=== PATIENT | male | born 1960 | race Caucasian/White ===

== ENCOUNTER → 2021-12-10 15:14 | Outpatient (CLI) | payer OTHER, SELFPAY ==
[2021-12-10 16:58] LABS: Microscopic, Urine URINE MICROSCOPIC (MICROSCOPIC)
[2021-12-10 17:52] LABS: Appearance,Urine CLEAR (Clear); Bilirubin,Urine Negative (Negative); Blood, Urine Negative (Negative); Color,Urine YELLOW (Yellow); Glucose,Urine (UA) Negative (Negative); Ketones,Urine Negative (Negative); Leukocyte Esterase,Urine Negative (Negative); Nitrate,Urine Negative (Negative); Protein,Urine Negative (Negative); Specific Gravity, Urine 1.025 (1.005-1.030); Urobilinogen,Urine 0.2 EU/dl (0.2)
[2021-12-10 18:13] LABS: Squamous Epithelial Cell,Urine Occasional #/hpf (0-5); WBC,Urine Occasional #/hpf (0-3)
[2021-12-12 21:12] LABS: Neisseria gonorrhoeae, NAA Negative (Negative)
== END ==
PROVIDERS: PCP Emergency Medicine; Visit Provider Emergency Medicine
DX: R39.89 Other symptoms and signs involving the genitourinary system (principal); R82.90 Unspecified abnormal findings in urine; Z20.2 Contact with and (suspected) exposure to infections with a predominantly sexual mode of transmission
CPT/HCPCS: 81001; 87086; 87491; 87591

== ENCOUNTER 2021-12-12 14:08 | Emergency (ER) | payer OTHER, SELFPAY ==
[2021-12-12 14:09] VITALS: BP 167/89; PULSE 75; RESP 18; TEMP 36.7; O2SAT 100; BMI 21.8
[2021-12-12 14:40] VITALS: BP 167/89; PULSE 75; RESP 18; TEMP 36.7; O2SAT 100; BMI 21.9
--- NOTE | 2021-12-12 14:46 | XR_ITS ---
FINAL REPORT CLINICAL HISTORY: PAIN in neck and radiating down right arm FINDINGS: CERVICAL SPINE Three views demonstrate no acute fracture. There is fusion from C5-C7. There are moderate degenerative changes with a disc osteophyte complex at C4-5. Bilateral vascular calcification is identified. There is no malalignment. IMPRESSION: Degenerative change as detailed above. Reviewed, Interpreted and Dictated by Anthony Espinosa III, MD Transcribed by Farnaz Spencer Authenticated and [facility]
--- NOTE | 2021-12-12 14:47 | EXP.UTC ---
Discharge Plan Disposition Patient Disposition: Home, Self-Care Condition: Good Prescriptions Prescriptions: New methocarbamol 500 mg tablet 500 mg PO BID PRN (Reason: muscle spasm) Qty: 20 0RF No Action buprenorphine-naloxone 8-2 mg tablet, sublingual 1 tab sublingual BID Referrals Follow up/Referrals: Marek Mcallister MD [Primary Care Provider] - See instructions Activity Restrictions/Add. Instructions Additional Instructions/Restrictions: *Ibuprofen leesa 6 hours with meal as needed for pain/inflammation *Remember you had a Toradol shot in the clinic today, which is similar to Motrin *Not additional anti-inflammatory like motrin, aleve, advil with the above amount of ibuprofen. You can still take Tylenol every 4 hours as needed if you need something else for pain *Ice 20 minutes every 2 hours for the first 48 hours after the initial injury followed by moist heat every 20 minutes 3-4 times a day to affected area *Muscle relaxer as prescribed as directed as needed for muscle spasms but remember, it WILL cause drowsiness You cannot take it and drive, operate machinery or care for small children. *Keep this area active, no movement leads to more stiffness, However take it easy and avoid heavy lifting pushing or pulling *Follow up with you family doctor if no improvement for further treatment Clinical Impressions Clinical Impression: Muscle spasm Instructions Patient Instructions: DI for Muscle Spasm, Methocarbamol Discharge ED Provider: Mandi Kim [facility] General Stated complaint: Back and neck pain Mode of Arrival: Ambulatory Source of Information: Patient Limitations: No Limitations Time Seen by Provider: 12/12/21 14:47 Description of Symptoms (Recalled from Triage Doc. by RN): pt comes in with c/o neck, back and right arm pain. HEENT Symptoms (Recalled from RN notes): No Resp Symptoms (Recalled from RN notes): No Skin Symptoms (Recalled from RN notes): No MS Symptoms (Recalled from RN notes): Yes Functional Status (Recalled from RN notes): n/a History of Present Illness Provider Complaint: Patient states that he has chronic neck pain and had surgery done in 2010 States that he has been working on generator and pulling and tugging alot and not sure if he may have pulled something or what States that he has been having spasm like pain in his neck and right shoulder area and sometimes with certain movements it will shoot pain down into his right upper arm States that over the las few days pain has got worse so he came in Denies numbness denies chest pain Related Data Home Medications Medication Instructions Recorded Confirmed buprenorphine 8 mg-naloxone 2 mg 1 tab sublingual BID 12/10/21 sublingual tablet Previous Rx's Medication Instructions Recorded methocarbamol 500 mg tablet 500 mg PO BID PRN muscle spasm #20 12/12/21 tabs Allergies Allergy/AdvReac Type Severity Reaction Status Date / Time No Known Drug Allergies Allergy Unknown Verified 12/12/21 14:46 [NKDA] Worker's Comp Is this a Worker's Comp case?: No PFSH PFSH Social History Smoking Status: Unknown if ever smoked alcohol intake: never current occupational status: unemployed Travel in the last 8 weeks: None ROS Obtained: Yes All systems reviewed & no additional complaints except as documented and Yes Systems reviewed as appropriate & no additional complaints except as documented Constitutional Constitutional: Reports system reviewed and no additional complaints, except as documented, Reports as per HPI and Denies headache(s) ENT Ears, Nose, Mouth, and Throat: Reports system reviewed and no additional complaints, except as documented, Reports as per HPI and Denies headache(s) Cardiovascular Cardiovascular: Reports system reviewed and no additional complaints, except as documented, Reports as per HPI, Denies chest pain, Denies dyspnea and Denies edema Re
[2021-12-12 15:58] VITALS: BP 167/89; PULSE 75; RESP 18; TEMP 36.7
== END 2021-12-12 16:01 | disposition home or self-care (01) ==
LOC: ER 14:26 → UTC 14:27
PROVIDERS: Emergency Provider Nurse Practitioner; PCP Family Medicine
DX: M62.838 Other muscle spasm (principal); M54.2 Cervicalgia; M54.9 Dorsalgia, unspecified; M25.511 Pain in right shoulder; M79.601 Pain in right arm; G89.29 Other chronic pain
CPT/HCPCS: 72040; 96372; 99213; G0463

== ENCOUNTER → 2021-12-24 14:32 | Outpatient (CLI) | payer OTHER, SELFPAY ==
[2021-12-24 13:25] LABS: Basophils # 0.1 K/mm3 (0-0.2); Basophils % 1.1 % (0.1-2.0); Eosinophils # 0.4 K/mm3 (0.0-0.4); Eosinophils % 4.8 % (0.1-12.0); Hematocrit 47.1 % (42.0-52.0); Hemoglobin 15.4 g/dL (14.1-18.0); Lymphocytes # 2.5 K/mm3 (0.7-4.5); Lymphocytes % 27.5 % (10-50); Mean Corpuscular HGB Conc 32.8 g/dL (31.8-35.4); Mean Corpuscular Hemoglobin 31.3 pg (27.0-31.2); Mean Corpuscular Volume 95.5 fl (80-94); Mean Platelet Volume 8.6 fl (7.4-10.4); Monocytes # 0.7 K/mm3 (0.1-1.0); Monocytes % 7.2 % (1.7-9.3); Neutrophils # 5.4 K/mm3 (1.8-7.8); Neutrophils % 59.4 % (37.0-80.0); Platelet Count 394 K/mm3 (142-424); Red Blood Count 4.93 M/mm3 (4.60-6.20); Red Cell Distribution Width 13.2 % (11.5-17.5); White Blood Count 9.1 K/mm3 (4.8-10.8)
[2021-12-24 13:28] LABS: Chloride 98 mmol/L (98-107)
[2021-12-24 13:29] LABS: Potassium 4.4 mmoL/L (3.5-5.1); Sodium 139 mmol/L (136-145)
[2021-12-24 13:31] LABS: Alanine Aminotransferase 27 U/L (12-78); Anion Gap 15.4 mEq/L (5-15); Aspartate Amino Transferase 34 U/L (17-59); Blood Urea Nitrogen 18 mg/dl (9-20); Carbon Dioxide 30 mmol/L (22.0-30.0); Estimated Glomerular Filt Rate 99 ml/min (>60); GFR (African American) 119 ML/MIN (>60)
[2021-12-24 13:32] LABS: Alkaline Phosphatase 72 U/L (38-126); Bilirubin,Total 0.5 mg/dl (0.2-1.3); Calcium 9.8 mg/dl (8.4-10.2); Cholesterol 317 mg/dl (140-200); Globulin 2.5 g/dL (1.3-3.2); Glucose 94 mg/dl (74-100); HDL Cholesterol 64 mg/dl (40-60); Total Protein,Serum 7.5 g/dl (6.3-8.2); Triglycerides 106 mg/dl (30-150); VLDL Cholesterol 21 mg/dL (0-40)
[2021-12-24 13:43] LABS: Direct LDL Cholesterol 214.44 mg/dL (100-129)
[2021-12-25 08:53] LABS: Hep A Ab, Total Negative (Negative); Hep B Core Ab, Total Negative (Negative); Hep B Surface Ab, Qual Non Reactive (.); Hepatitis B Surface Antigen Negative (Negative); Hepatitis C Antibody <0.1 s/co ratio (0.0-0.9)
[2021-12-25 11:31] LABS: HIV Screen 4th Generation wRfx Non Reactive (Non Reactive)
[2021-12-27 00:07] LABS: ALT (SGPT) P5P 26 IU/L (0-55); Alpha 2-Macroglobulins, Qn 213 mg/dL (110-276); Apolipoprotein A-1 170 mg/dL (101-178); Bilirubin, Total 0.3 mg/dL (0.0-1.2); Fibrosis Score 0.12 (0.00-0.21); GGT 20 IU/L (0-65); Haptoglobin 221 mg/dL (29-370); Necroinflammat Activity Grade A0-No activity (.); Necroinflammat Activity Score 0.09 (0.00-0.17)
== END ==
PROVIDERS: PCP Family Medicine; Visit Provider Family Medicine
DX: Z86.19 Personal history of other infectious and parasitic diseases (principal); Z11.4 Encounter for screening for human immunodeficiency virus [HIV]
CPT/HCPCS: 80053; 80061; 81596; 85025; 86703; 86704; 86706; 86708; 87340; 87380; 87522; G0103; G0432

== ENCOUNTER 2022-01-06 14:13 | Emergency (ER) | payer OTHER, SELFPAY ==
[2022-01-06 14:23] VITALS: BP 112/68; PULSE 74; RESP 16; TEMP 36.9; O2SAT 96; BMI 22.1
--- NOTE | 2022-01-06 14:39 | XR_ITS ---
PROCEDURE INFORMATION: Exam: XR Right Wrist Exam date and time: 01/06/2022 2:39 PM Age: 61 years old Clinical indication: Injury or trauma; Fall; Blunt trauma (contusions or hematomas); Patient HX: Patient fell on Friday, right wrist pain. TECHNIQUE: Imaging protocol: Radiologic exam of the Right wrist. Views: 3 or more views. COMPARISON: CR WRR3 WRIST-3 VIEWS-RT 08/14/2016 9:41 AM FINDINGS: Bones/joints: Severe narrowing 1st carpal metacarpal articulation. Soft tissues: Diffuse soft tissue swelling. IMPRESSION: 1. 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 2. No evidence of acute osseous injury.
--- NOTE | 2022-01-06 14:39 | XR_ITS ---
PROCEDURE INFORMATION: Exam: XR Right Forearm Exam date and time: 01/06/2022 2:41 PM Age: 61 years old Clinical indication: Injury or trauma; Fall; Blunt trauma (contusions or hematomas); Arm, lower; Patient HX: Fell on Friday, right wrist pain TECHNIQUE: Imaging protocol: Radiologic exam of the Right forearm. Views: 2 views. COMPARISON: CR XR WRIST RT MIN 3V 01/06/2022 2:39 PM FINDINGS: Bones/joints: Normal. Soft tissues: Soft tissue swelling. IMPRESSION: 1. No evidence of acute osseous injury. 2. Soft tissue swelling.
[2022-01-06 15:10] VITALS: BP 112/68; PULSE 74; RESP 16; TEMP 36.9; O2SAT 96; BMI 22.1
--- NOTE | 2022-01-06 15:43 | EXP.UTC ---
Discharge Plan Disposition Condition: Good Prescriptions Prescriptions: New prednisone [prednisone] 20 mg tablet 20 mg PO BID Qty: 10 0RF No Action methocarbamol 500 mg tablet 500 mg PO BID PRN (Reason: muscle spasm) Qty: 60 3RF prednisone 20 mg tablet See Rx Instructions .ROUTE .COMPLEX Qty: 21 0RF Rx Instructions: three daily for days, two daily for 5 days, one daily for 5 days; meloxicam 15 mg tablet 15 mg PO DAILY Qty: 90 3RF buprenorphine-naloxone 8-2 mg tablet, sublingual 1 tab sublingual BID rosuvastatin [Crestor] 40 mg tablet 40 mg PO DAILY Qty: 90 3RF Referrals Follow up/Referrals: Marek Mcallister MD [Primary Care Provider] - See instructions Activity Restrictions/Add. Instructions Additional Instructions/Restrictions: sprain- rest Ice with cold pack for 20 minutes remove may repeat for comfort every hour splint for support and swelling no less in the shower. Be sure not too tight but not to lose either Elevate with arm above your heart as much as possible to help reduce swelling and therefore pain Ibuprofen every 6 hours as needed for pain or inflammation. If needs something more you can take Tylenol every 4 hours as needed as long as her primary care has told he was okayed for you to take both. Follow-up immediately if new or worsening symptoms or no noticeable improvement over the next 3-5 days. call ortho Clinical Impressions Clinical Impression: Muscle strain of right wrist Discharge ED Provider: Luzma ([facility])[place] HPI General Stated complaint: AO10/28@[email or web address]@1130 pain in Rt arm Mode of Arrival: Ambulatory Source of Information: Patient Limitations: No Limitations Time Seen by Provider: 01/06/22 15:43 Description of Symptoms (Recalled from Triage Doc. by RN): pt c/o R wrist pain r/t fall on friday of last week. Pt reports he tripped and fell. HEENT Symptoms (Recalled from RN notes): No Resp Symptoms (Recalled from RN notes): No Skin Symptoms (Recalled from RN notes): No MS Symptoms (Recalled from RN notes): Yes Functional Status (Recalled from RN notes): WNL History of Present Illness Provider Complaint: 61 yr old male presents for rt arm pain. pt states he fell and since then his arm and wrist is hurting and cracking Related Data Home Medications Medication Instructions Recorded Confirmed buprenorphine 8 mg-naloxone 2 mg 1 tab sublingual BID 12/10/21 12/24/21 sublingual tablet Previous Rx's Medication Instructions Recorded meloxicam 15 mg tablet 15 mg PO DAILY #90 tabs 12/24/21 methocarbamol 500 mg tablet 500 mg PO BID PRN muscle spasm #60 12/24/21 tabs prednisone 20 mg tablet See Rx Instructions .Route 12/24/21 .COMPLEX #21 tabs rosuvastatin 40 mg tablet (Crestor) 40 mg PO DAILY #90 tabs 12/24/21 prednisone 20 mg tablet 20 mg PO BID #10 tabs 01/06/22 Allergies Allergy/AdvReac Type Severity Reaction Status Date / Time No Known Drug Allergies Allergy Unknown Verified 12/24/21 09:56 [NKDA] Worker's Comp Is this a Worker's Comp case?: No PFSH PFSH Social History , [employer]) Smoking Status: Current every day smoker alcohol intake: never substance use type: former substance user current occupational status: unemployed Travel in the last 8 weeks: None ROS Obtained: Yes All systems reviewed & no additional complaints except as documented Constitutional Constitutional: Reports system reviewed and no additional complaints, except as documented Eyes Eyes: Reports system reviewed and no additional complaints, except as documented ENT Ears, Nose, Mouth, and Throat: Reports system reviewed and no additional complaints, except as documented Cardiovascular Cardiovascular: Reports system reviewed and no additional complaints, except as documented Respiratory Respiratory: Reports system reviewed and no additional complaints, except as documented Gastrointestinal Ga
[2022-01-06 15:57] VITALS: BP 112/68; PULSE 74; RESP 16; TEMP 36.9; O2SAT 96
== END 2022-01-06 16:00 | disposition home or self-care (01) ==
PROVIDERS: Emergency Provider Nurse Practitioner Family; PCP Family Medicine
DX: S66.911A Strain of unspecified muscle, fascia and tendon at wrist and hand level, right hand, initial encounter (principal); W18.30XA Fall on same level, unspecified, initial encounter
CPT/HCPCS: 73090; 73110; 99212; G0463

== ENCOUNTER → 2022-02-04 08:32 | Outpatient (CLI) | payer OTHER, SELFPAY ==
[2022-02-04 08:56] LABS: Blood Urea Nitrogen 26 mg/dl (9-20); Estimated Glomerular Filt Rate 76 ml/min (>60); GFR (African American) 92 ML/MIN (>60)
== END ==
PROVIDERS: PCP Family Medicine; Visit Provider Emergency Medicine
DX: M54.2 Cervicalgia (principal); M25.519 Pain in unspecified shoulder
CPT/HCPCS: 36415; 82565; 84520

== ENCOUNTER → 2022-02-14 14:42 | Outpatient (CLI) | payer OTHER, SELFPAY ==
--- NOTE | 2022-02-14 15:02 | MR_ITS ---
FINAL REPORT CLINICAL HISTORY: old neck injury. HX NECK SURGERY 2010. RIGHT SIDED NECK PAIN. RIGHT ARM PAIN, NUMBNESS, AND TINGLING. 14ML PROHANCE GIVEN. FINDINGS: Multiplanar MR imaging of the cervical spine was performed without and with contrast. On the sagittal T2-weighted images, disc degeneration is seen at multiple levels. There is fusion of C5-C7. The vertebral alignment is normal. There is no evidence of fracture. No bony mass is identified. The cervical spinal cord has an unremarkable appearance without evidence of mass, edema or syrinx. There is no evidence of significant canal stenosis. C2-3: There are bilateral uncovertebral osteophytes greater on the left. There is mild left neural foraminal narrowing. C3-4: There is an annular bulge with uncovertebral osteophytes. There is moderate right and mild left neural foraminal narrowing. C4-5: There is a disc osteophyte complex. There is severe right and moderate left neural foraminal narrowing. C5-6: There is fusion at this level. There is mild right neural foraminal narrowing. C6-7: There is fusion at this level. There is moderate right neural foraminal narrowing. C7-T1: There is a disc osteophyte complex. There is mild right neural foraminal narrowing. No abnormal contrast enhancement is seen on the postcontrast images. IMPRESSION: Fusion of C5-C7. Multilevel degenerative disc disease with areas of neural foraminal narrowing. No focal disc protrusion or significant central canal stenosis. Reviewed, Interpreted and Dictated by Anthony Espinosa III, MD Transcribed by Keenan Stewart Authenticated and [facility]
== END ==
PROVIDERS: PCP Family Medicine; Visit Provider Family Medicine
DX: M25.511 Pain in right shoulder (principal); M54.2 Cervicalgia
CPT/HCPCS: 72156; 76376; A9576

== ENCOUNTER → 2022-03-18 13:53 | Outpatient (POV) | payer OTHER, SELFPAY ==
--- NOTE | 2022-03-18 14:33 | EXP.PAIN.OV ---
HPI Data of Consult Patient: new to practice Consult date: 03/18/22 Requesting Physician: Martina Huffman APRN Consult Narrative Reason for consult: Neck pain, extremity pain, low back pain, mid back pain History of present illness: Mr. Woods is a 61 year old male who presents today as a new patient. He is a referral from Yasmany Mcallister's office. Today he rates his pain a 8 out of 10. Patient states the pain is all primarily in his neck and upper back with continued pain throughout his mid back and low back as well. Patient does state this is been going on for years and progressively worsened over time. Patient did have a cervical fusion back in 2010 with plates and screws. Patient states he was scheduled to have a revision of this fusion however due to COVID it was canceled and never rescheduled. Patient does describe this as a constant excruciating pain sensation that is worse with increased activity. Patient states it does affect his ability to perform activities of daily living such as cooking and cleaning. Patient states he does have a new baby and has difficulty leaving lifting her up due to the pain. Patient has tried qgen-wiw-iitrusr Tylenol and ibuprofen with minimal improvement. Patient is also been prescribed oral steroids and muscle relaxers that do help some. Patient has had injections in the past. Patient states he did have several with our office approximately 3 to 4 years ago. He stated that these did provide some improvement however varied on how much and how long they lasted. Patient does use heat and ice including a heating pad. Patient states he has been to a chiropractor in the past for his mid back pain and did get some improvement following his visits. Patient denies any physical therapy. Patient is on Suboxone therapy by Maureen Han. His Sedrick is [id number]. Its been reviewed and appropriate. CC: Martina Huffman APRN [facility] Disclaimer: The information contained in this section may have been updated after the patient was seen, as this information can be updated by other users. Social History Smoking Status: Current every day smoker alcohol intake: never substance use type: former substance user current occupational status: unemployed Travel in the last 8 weeks: None Review of Systems Review of Systems Review of systems:: pertinent systems reviewed and negative unless documented below Review of systems (narrative): Neck pain Meds Home Medications and Allergies Home Medications Medication Instructions Recorded Confirmed Type buprenorphine 8 mg-naloxone 2 mg 1 tab sublingual BID 12/10/21 01/24/22 History sublingual tablet meloxicam 15 mg tablet 15 mg PO DAILY #90 tabs 12/24/21 01/24/22 Rx methocarbamol 500 mg tablet 500 mg PO BID PRN muscle spasm #60 12/24/21 01/24/22 Rx tabs rosuvastatin 40 mg tablet (Crestor) 40 mg PO DAILY #90 tabs 12/24/21 01/24/22 Rx alprazolam 2 mg tablet (Xanax) 2 mg PO DAILY #1 tab 02/08/22 Rx New Prescriptions to Start Prescriptions: Allergies Allergy/AdvReac Type Severity Reaction Status Date / Time No Known Drug Allergies Allergy Unknown Verified 01/24/22 14:56 [NKDA] Objective Narrative: Physical Exam: General: Alert and oriented x3, no acute distress, pleasant and cooperative Lungs: Respirations even and unlabored, symmetrical chest expansion Eyes: PERRL Musculoskeletal: Flexion and extension of cervical [spine] somewhat guarded secondary to pain, [antalgic gait noted] Neurological: Speech clear, no gross sensory deficit Additional findings Additional findings: FINAL REPORT CLINICAL HISTORY: old neck injury. HX NECK SURGERY 2010. RIGHT SIDED NECK PAIN. RIGHT ARM PAIN, NUMBNESS, AND TINGLING. 14ML PROHANCE GIVEN. FINDINGS: Multiplanar MR imaging of the cervical spine was performed without and with contrast.? On the sagittal T2-weighted images, disc degenera
[2022-03-18 14:34] VITALS: BP 143/87; PULSE 80; RESP 18; O2SAT 98; BMI 22.8
== END ==
PROVIDERS: Visit Provider Nurse Practitioner Family
DX: M50.123 Cervical disc disorder at C6-C7 level with radiculopathy (principal); Z72.0 Tobacco use; Z79.899 Other long term (current) drug therapy
CPT/HCPCS: 99202; G0463

== ENCOUNTER 2022-03-26 12:46 | Day surgery (SDC) | payer OTHER, SELFPAY ==
[2022-03-26 13:03] VITALS: BP 151/82; PULSE 83; RESP 18; TEMP 37; O2SAT 96; BMI 23.6
[2022-03-26 13:08] VITALS: BP 198/90; PULSE 89; RESP 20; O2SAT 98
[2022-03-26 13:09] VITALS: BP 198/90; PULSE 89; RESP 20; O2SAT 98
[2022-03-26 13:10] VITALS: BP 151/82; PULSE 83; RESP 18; TEMP 37; O2SAT 96
--- NOTE | 2022-03-26 13:16 | P.PCN_ITS ---
Procedure Date: 03/26/22 Time: 13:15 Anesthesiologist:: Vladimir Carballo CRNA Complications:: None Pre-procedure Diagnosis:: Degenerative disc disease cervical spine multilevels. Cervical radiculopathy. Cervical postlaminectomy syndrome. Post-procedure Diagnosis:: Same. Indications for Procedure:: Patient is a very pleasant 61-year-old male that comes our clinic today for cervical epidural steroid injection. Patient is status post cervical ACDF two- level several years ago. Patient continues with cervical neck pain that he describes as constant, dull, sharp and stabbing at times. Also bilateral shoulder and arm radicular symptoms. He rates his pain 8/10. Procedure Details:: Procedure:Cervical epidural steroid injection Informed consent was obtained and the risks and benefits of the procedure were explained to the patient. The patient was taken to the procedure room and noninvasive monitors placed, including noninvasive blood pressure cuff and pulse oximeter. The neck was prepped using Chloraprep as a cleansing solution. The C6- C7 interspace was viewed using fluroscopy. The skin and subcutaneous tissues were anesthetized using lidocaine 1.5% and a 25-gauge needle. After this an 18- gauge Touhy epidural needle was placed into the C6-C7 interspace under fluroscopy guidance and advanced using loss of resistance to air until the epidural space was encountered. After confirmation of needle placement in the epidural space using contrast dye, a solution containing normal saline, 2 mL and Depo-Medrol 80 mg was incrementally injected into the cervical epidural space.~ The patient tolerated the procedure well with no complications. The patient was observed in the Pain Clinic and then discharged home neurologically intact. Plan and Disposition:: Patient was discharged without incident.
== END 2022-03-26 13:10 | disposition home or self-care (01) ==
PROVIDERS: PCP Family Medicine; Visit Provider Nurse Anesthetist, Certified Registered
DX: M50.123 Cervical disc disorder at C6-C7 level with radiculopathy (principal); M96.1 Postlaminectomy syndrome, not elsewhere classified; Z72.0 Tobacco use
CPT/HCPCS: 62321; J1040; Q9966

== ENCOUNTER → 2022-04-08 13:18 | Outpatient (POV) | payer OTHER, SELFPAY ==
--- NOTE | 2022-04-08 15:15 | EXP.PAIN.SOA ---
[facility] Pain Management SOAP Note Subjective:: Patient is a pleasant 61-year-old male who presents today for follow-up of cervical epidural steroid injection at C6-C7 on 03/26/2022. We are currently treating the patient for degenerative disc disease of cervical spine with cervical radiculopathy symptoms, neck pain, extremity pain, low back pain, mid back pain. Today he states he did get significant relief following this injection but only on the third day and only lasting a couple days. Patient states that he had debilitating pain for 2 days after this injection. Patient does rate his pain a 10 out of 10 today and states he is back to his baseline if not worse. Patient denies any other trauma or injury. Patient does state that this is all in his neck with radiating symptoms and feels like it is a constant pulling and catching sensations with limited range of motion. Patient does state that it is a constant pressure that worsens his symptoms. Patient has had a cervical fusion in the past and was scheduled for revision however this was canceled due to COVID and never rescheduled. Patient does state this is a constant pain that affects his ability to perform activities of daily living such as cooking and cleaning. He has tried oral steroids muscle relaxers daily meloxicam with minimal improvement. Patient states he has also had injections in the past and is not interested in any long-term implants such as a spinal cord stimulator or pain pump. Patient states he does continue to use heat and ice including a heating pad however only gets short-term relief. Patient is on Suboxone therapy from an outside provider. Patient does state that he does have a girlfriend who has a drug history and in the past has taken some of his medication. Patient states prior to coming to our office he was prescribed Percocet 10 mg 4 times a day and this along with the Suboxone therapy did help manage his pain symptoms. His Sedrick is [id number]. Its been reviewed and appropriate. Review of Systems: General: No recent weight changes, no fever, no sleep disturbances Respiratory: No cough, no shortness of air, no recurring pulmonary infections Cardiovascular/peripheral vascular: No chest pain, no palpitations, no edema, no shortness of breath Gastrointestinal: No new onset incontinence, normal bowel movements reported Genitourinary: No new onset incontinence Musculoskeletal: Neck pain, shoulder pain, arm pain Psychiatric: [Normal mood/affect] Neurological: [Denies weakness in extremities], [denies balance issues] Objective:: Physical Exam: General: Alert and oriented x3, no acute distress, pleasant and cooperative Lungs: Respirations even and unlabored, symmetrical chest expansion Eyes: PERRL Musculoskeletal: Flexion and extension of cervical [spine] somewhat guarded secondary to pain, [antalgic gait noted] extreme point tenderness of bilateral cervical paraspinous and bilateral trapezius Neurological: Speech clear, no gross sensory deficit ORT score updated with moderate risk Assessment:: Degenerative disc disease of cervical spine with cervical radiculopathy symptoms, neck pain, extremity pain, low back pain, mid back pain Plan:: Patient continues to experience significant pain throughout his spine with worsening symptoms in his upper back. Patient did have limited range of motion of his cervical spine and extreme point tenderness along his bilateral cervical paraspinous and bilateral trapezius during today's visit. I have discussed with the patient that he may benefit from diagnostic trigger point injections at these locations. Risk and benefits were discussed with the patient and he would like to proceed forward with this plan of care. I have also discussed with the patient that he may benefit from a spinal cord stimulator trial in the future however the patient is not interested in this option. We will schedule the patient for diagnostic trigger point injections of bilateral cervical
[2022-04-08 15:17] VITALS: BP 156/100; PULSE 88; RESP 18; O2SAT 97; BMI 23.6
== END ==
PROVIDERS: PCP Emergency Medicine; Visit Provider Nurse Practitioner Family
DX: M50.123 Cervical disc disorder at C6-C7 level with radiculopathy (principal); M54.50 Low back pain, unspecified
CPT/HCPCS: 99212; G0463

== ENCOUNTER 2022-04-16 10:39 | Day surgery (SDC) | payer OTHER, SELFPAY ==
[2022-04-16 10:54] VITALS: BP 160/89; PULSE 82; RESP 18; TEMP 36.7; O2SAT 98; BMI 23.6
[2022-04-16 11:02] VITALS: BP 149/86; PULSE 77; RESP 18; O2SAT 98
[2022-04-16 11:03] VITALS: BP 149/86; PULSE 77; RESP 18; O2SAT 98
[2022-04-16 11:11] VITALS: BP 151/76; PULSE 72; RESP 18; O2SAT 98
--- NOTE | 2022-04-16 11:44 | EXP.PAIN.PRO ---
Procedure Date: 04/16/22 Time: 11:20 Anesthesiologist:: Vladimir Carballo CRNA Complications:: None Pre-procedure Diagnosis:: Degenerative disc disease cervical spine multilevels. Cervical radiculopathy. Myofascial pain bilateral trapezius. Lumbar paraspinous muscle pain bilaterally. Degenerative disc disease lumbar spine multilevels. Lumbar radicular symptoms. Post-procedure Diagnosis:: Same. Indications for Procedure:: LumbarEstefani is a very pleasant 61-year-old male that comes our clinic today for trigger point ejections of the bilateral trapezius muscles as well as bilateral paraspinous muscles. Patient has pain in these areas he describes as constant, dull and aching. He rates the pain 7/10. Also, patient had cervical epidural steroid injection in March 2022. He reports 2 days of feeling worse however, on the third day he began feeling much better and had relief in his cervical symptoms including radiculopathy for 2 to 3 weeks. Patient requesting a second cervical epidural steroid injection. I think this would be a good idea given the fact he received some significant treatment with his first. Procedure Details:: Details of the procedure explained to the patient. The patient taken procedure room placed in the sitting position. The area over the bilateral trapezius muscles as well as bilateral lumbar paraspinous muscles was cleansed using chlorhexidine as a cleansing solution. Trigger point injections over the bilateral trapezius muscles in 3 different spots were given using a 25-gauge inch and half needle and 1% lidocaine with Depo-Medrol. Each location received 1 cc of injection. The same was done in the lumbar paraspinous muscles bilaterally. 3 different areas were injected bilaterally. This covered L1-L4 bilaterally. Patient tolerated procedure without difficulty. There are no complications. Plan and Disposition:: Patient was discharged without incident. We will schedule the patient in 2 weeks for repeat cervical epidural steroid injection C7-T1
== END 2022-04-16 11:11 | disposition home or self-care (01) ==
LOC: SC.PAINP 10:40
PROVIDERS: PCP Emergency Medicine; Visit Provider Nurse Anesthetist, Certified Registered
DX: M51.16 Intervertebral disc disorders with radiculopathy, lumbar region (principal); M50.10 Cervical disc disorder with radiculopathy, unspecified cervical region; M79.18 Myalgia, other site
CPT/HCPCS: 20552; J1040

== ENCOUNTER 2022-04-30 09:20 | Day surgery (SDC) | payer OTHER, SELFPAY ==
[2022-04-30 09:34] VITALS: BP 151/90; PULSE 81; RESP 18; TEMP 36.9; O2SAT 97; BMI 23.6
[2022-04-30 09:40] VITALS: BP 173/99; PULSE 88; RESP 18; O2SAT 98
[2022-04-30 09:41] VITALS: BP 173/99; PULSE 88; RESP 18; O2SAT 98
[2022-04-30 09:45] VITALS: BP 168/84; PULSE 74; RESP 18; O2SAT 97
--- NOTE | 2022-04-30 12:14 | P.PCN_ITS ---
Procedure Date: 04/30/22 Time: 09:45 Anesthesiologist:: Vladimir Carballo CRNA Complications:: None Pre-procedure Diagnosis:: Degenerative disc disease cervical spine multilevels. Cervical radiculopathy. Cervical postlaminectomy syndrome Post-procedure Diagnosis:: Same. Indications for Procedure:: This patient is a very pleasant 61-year-old male that comes our clinic today for a repeat cervical epidural steroid injection. Patient reports 50 to 70% improvement in terms of his overall cervical neck pain and radicular symptoms with his first cervical epidural steroid injection. Patient also complains of difficulty with left and right cervical rotation. I mentioned to the patient briefly about medial branch blocks/facet blocks in the cervical spine. We will reassess the patient at his follow-up visit. Procedure Details:: Procedure:Cervical epidural steroid injection Informed consent was obtained and the risks and benefits of the procedure were explained to the patient. The patient was taken to the procedure room and noninvasive monitors placed, including noninvasive blood pressure cuff and pulse oximeter. The neck was prepped using Chloraprep as a cleansing solution. The C7- T1 interspace was viewed using fluroscopy. The skin and subcutaneous tissues were anesthetized using lidocaine 1.5% and a 25-gauge needle. After this an 18- gauge Touhy epidural needle was placed into the C7-T1 interspace under fluroscopy guidance and advanced using loss of resistance to air until the epidural space was encountered. After confirmation of needle placement in the epidural space using contrast dye, a solution containing normal saline, 2 mL and Depo-Medrol 80 mg was incrementally injected into the cervical epidural space.~ The patient tolerated the procedure well with no complications. The patient was observed in the Pain Clinic and then discharged home neurologically intact. Plan and Disposition:: Patient was discharged without incident.
== END 2022-04-30 09:45 | disposition home or self-care (01) ==
LOC: SC.PAINP 09:20
PROVIDERS: PCP Emergency Medicine; Visit Provider Nurse Anesthetist, Certified Registered
DX: M50.13 Cervical disc disorder with radiculopathy, cervicothoracic region (principal); M96.1 Postlaminectomy syndrome, not elsewhere classified; Z72.0 Tobacco use
CPT/HCPCS: 62321; J1040

== ENCOUNTER → 2022-05-13 14:18 | Outpatient (POV) | payer OTHER, SELFPAY | PROVIDERS: Visit Provider Specialist/Technologist | DX: Z00.00 Encounter for general adult medical examination without abnormal findings (principal) ==

== ENCOUNTER → 2022-05-16 14:15 | Outpatient (POV) | payer OTHER, SELFPAY ==
--- NOTE | 2022-05-16 15:09 | EXP.PAIN.SOA ---
[facility] Pain Management SOAP Note Subjective:: Patient is a pleasant 61-year-old male who presents today for follow-up of cervical epidural at C7-T1 on 04/30/2022. We are currently treating the patient for degenerative disc disease of cervical spine with cervical radiculopathy symptoms. Today he states he has had approximately 30% improvement or more following this injection and states he feels like it is still providing a little relief. He does rate his pain a 6 out of 10 today. Patient denies any new trauma or injury. Patient denies any change location or type of pain he experiences. Patient states he has chronic pain in his neck. Patient states previously the surgeon who did his previous back surgery stated that he would never be able to work again with his condition. He states that he previously tried for disability however this was denied. Patient states that the pain does interfere with his ability to perform activities of daily living such as cooking and cleaning and even interferes with his sleeping. 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 Patient states he has tried marijuana in the past that did provide additional relief of his pain symptoms as well as his anxiety and he is asking questions today regarding the medical marijuana. Patient is on Suboxone therapy from an outside provider. His Sedrick is [id number]. Its been reviewed and appropriate. Review of Systems: General: No recent weight changes, no fever, no sleep disturbances Respiratory: No cough, no shortness of air, no recurring pulmonary infections Cardiovascular/peripheral vascular: No chest pain, no palpitations, no edema, no shortness of breath Gastrointestinal: No new onset incontinence, normal bowel movements reported Genitourinary: No new onset incontinence Musculoskeletal: Neck pain Psychiatric: [Normal mood/affect] Neurological: [Denies weakness in extremities], [denies balance issues] Objective:: Physical Exam: General: Alert and oriented x3, no acute distress, pleasant and cooperative Lungs: Respirations even and unlabored, symmetrical chest expansion Eyes: PERRL Musculoskeletal: Flexion and extension of cervical [spine] somewhat guarded secondary to pain, [antalgic gait noted] Neurological: Speech clear, no gross sensory deficit Assessment:: Degenerative disc disease of cervical spine with cervical radiculopathy symptoms, chronic pain Plan:: Patient continues to have significant pain in his neck with radiating symptoms into his upper extremities. I have discussed with the patient that he may benefit from a spinal cord stimulator trial in the future. Risk and benefits and educational handouts were given during today's visit. Patient states he would like to review this and let us know in the future if he would like to proceed forward. I have counseled the patient that at this time we are not doing anything with the medical marijuana and we will let him know in the future if this changes. Patient will return to clinic in 1 month for reevaluation of symptoms and plan of care. Patient has been instructed to contact the clinic with any concerns before the next appointment. Dr. Moore has reviewed this note and agrees with this plan of care. This note was dictated using voice recognition software and make contain errors or omissions. [facility] Disclaimer: The information contained in this section may have been updated after the patient was seen, as this information can be updated by other users. Medical History (Updated 05/16/22 @ 10:46 by Kimi Wolfe APRN) Anxiety HLD (hyperlipidemia) Mood disorder Surgical History H/O neck surgery Family History Other No significant family history Social History (Updated 05/09/22 @ 13
[2022-05-16 16:02] VITALS: BP 129/85; PULSE 75; RESP 18; O2SAT 97; BMI 23.6
== END ==
PROVIDERS: PCP Family Medicine; Visit Provider Nurse Practitioner Family
DX: M50.33 Other cervical disc degeneration, cervicothoracic region (principal); G89.29 Other chronic pain
CPT/HCPCS: 99212; G0463

== ENCOUNTER → 2022-06-17 12:35 | Outpatient (POV) | payer OTHER, SELFPAY ==
--- NOTE | 2022-06-17 13:01 | EXP.PAIN.SOA ---
[facility] Pain Management SOAP Note Subjective:: Patient is a pleasant 61-year-old male who presents today for follow-up.? We are currently treating the patient for degenerative disc disease of cervical spine with cervical radiculopathy symptoms.? Today rates his pain a 7 out of 10 today.? Patient denies any new trauma or injury.? Patient denies any change location or type of pain he experiences.? He continues to have significant and chronic pain at his neck with radiating symptoms. Patient has tried iqsx-wev-ewdnvlq medications with minimal improvement along with heat and ice. Patient has been to see a neurosurgeon who stated he was not a surgical candidate for him due to the condition of his back. He does state his pain is a chronic aching, throbbing sensation that is worse with increased activity. It interferes with his ability to perform activities of daily living such as cooking and cleaning and even interferes with his sleeping.? Patient is on Suboxone therapy from an outside provider.? His Sedrick is [id number].? Its been reviewed and appropriate. Review of Systems: General: No recent weight changes, no fever, no sleep disturbances Respiratory: No cough, no shortness of air, no recurring pulmonary infections Cardiovascular/peripheral vascular: No chest pain, no palpitations, no edema, no shortness of breath Gastrointestinal: No new onset incontinence, normal bowel movements reported Genitourinary: No new onset incontinence Musculoskeletal: Neck pain Psychiatric: [Normal mood/affect] Neurological: [Denies weakness in extremities], [denies balance issues] Objective:: Physical Exam: General: Alert and oriented x3, no acute distress, pleasant and cooperative Lungs: Respirations even and unlabored, symmetrical chest expansion Eyes: PERRL Musculoskeletal: Flexion and extension of cervical [spine] somewhat guarded secondary to pain, [antalgic gait noted] Neurological: Speech clear, no gross sensory deficit FINDINGS: Multiplanar MR imaging of the cervical spine was performed without and with contrast.? On the sagittal T2-weighted images, disc degeneration is seen at multiple levels.? There is fusion of C5-C7. The vertebral alignment is normal. There is no evidence of fracture. No bony mass is identified.? The cervical spinal cord has an unremarkable appearance without evidence of mass, edema or syrinx. There is no evidence of significant canal stenosis.? C2-3:? There are bilateral uncovertebral osteophytes greater on the left.? There is mild left neural foraminal narrowing.? C3-4:? There is an annular bulge with uncovertebral osteophytes.? There is moderate right and mild left neural foraminal narrowing.? C4-5:? There is a disc osteophyte complex. There is severe right and moderate left neural foraminal narrowing.? C5-6:? There is fusion at this level.? There is mild right neural foraminal narrowing.? C6-7:? There is fusion at this level.? There is moderate right neural foraminal narrowing. C7-T1:? There is a disc osteophyte complex.? There is mild right neural foraminal narrowing.? No abnormal contrast enhancement is seen on the postcontrast images. IMPRESSION: Fusion of C5-C7.? ? Multilevel degenerative disc disease with areas of neural foraminal narrowing.? ? No focal disc protrusion or significant central canal stenosis. Reviewed, Interpreted and Dictated by Anthony Espinosa III, MD Transcribed by Keenan Stewart Authenticated and ERN Assessment:: Degenerative disc disease of cervical spine with cervical radiculopathy symptoms Plan:: Patient is experiencing significant pain in his neck with limited range of motion of his lumbar spine and radiating symptoms. I have discussed with the patient that he may benefit from a cervical epidural steroid injection. Risk and benefits were discussed with the patient and he would like to proceed forward with this plan of care. Patient pr
[2022-06-17 14:00] VITALS: BP 153/85; PULSE 66; RESP 18; O2SAT 98; BMI 23.6
== END ==
PROVIDERS: Visit Provider Nurse Practitioner Family
DX: M50.123 Cervical disc disorder at C6-C7 level with radiculopathy (principal)
CPT/HCPCS: 99212; G0463

== ENCOUNTER 2024-01-09 09:58 | Outpatient (CLI) | payer OTHER, SELFPAY ==
--- NOTE | 2024-01-09 10:04 | CT_ITS ---
FINAL REPORT TECHNIQUE: Thin section axial images were obtained from the lung apices to the upper abdomen by computed tomography. Reformatted images were obtained and reviewed. This study was performed with techniques to keep radiation doses al low as reasonably achievable (ALARA). Individualized dose reduction techniques using automated exposure control or adjustment of mA and/or kV according to the patient's size were employed. 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 father had lung cancer. COMPARISON: None FINDINGS: CHEST CT LOW DOSE CTDI vol (mGy): 2.90 DLP (mGy-cm): 107.33 There is no axillary adenopathy. There is no mediastinal or hilar mass or adenopathy. The heart is normal in size. Severe left coronary artery calcifications are present. There is no pericardial or pleural effusion. There is mild emphysema and mild pulmonary scarring. Lung window images demonstrate no suspicious infiltrate or nodule. There are several calcified granulomas. Limited images of the upper abdomen are unremarkable. IMPRESSION: No suspicious pulmonary nodule or mass. Lung-RADS category 1S. Recommend 12 month follow up low dose chest CT. Modifier S: Severe left coronary artery calcifications. Reviewed, Interpreted and Dictated by Anthony Espinosa III, MD Transcribed by Tiarra Payne Authenticated and [facility]
== END 2024-01-09 23:59 | disposition home or self-care (01) ==
LOC: RAD 09:59
PROVIDERS: PCP Nurse Practitioner; Visit Provider Nurse Practitioner
DX: Z87.891 Personal history of nicotine dependence (principal)
CPT/HCPCS: 71271

== ENCOUNTER 2024-02-27 12:09 | Outpatient (CLI) | payer OTHER, SELFPAY ==
[2024-02-27 07:32] VITALS: BMI 21.5
[2024-02-27 12:46] VITALS: BP 143/73; PULSE 61; RESP 18; O2SAT 99; BMI 21.5
[2024-02-27 12:55] LABS: Chloride 106 mmol/L (98-107); Potassium 4.8 mmoL/L (3.5-5.1); Sodium 134 mmol/L (136-145)
[2024-02-27 12:58] LABS: Anion Gap 4.8 mEq/L (5-15); Blood Urea Nitrogen 31 mg/dl (9-20); Carbon Dioxide 28 mmol/L (22.0-30.0); Creatinine Clearance Estimated 72 mL/min (50-200); Estimated Glomerular Filt Rate 86 ml/min (>60); GFR (African American) 103 ML/MIN (>60); Glucose 82 mg/dl (74-100)
[2024-02-27 13:15] VITALS: BP 143/85; PULSE 56; RESP 20; O2SAT 94
[2024-02-27 13:18] VITALS: BP 119/61; PULSE 56; RESP 20; O2SAT 95
[2024-02-27 13:20] VITALS: BP 115/69; PULSE 57; RESP 20; O2SAT 95
[2024-02-27 13:30] VITALS: BP 123/73; PULSE 56; RESP 20; O2SAT 96
[2024-02-27] MEDS: 0.9 % SODIUM CHLORIDE 50 ML VIAL IV (13:34)
[2024-02-27] MEDS: SODIUM CHLORIDE 0.9% 10ML SYR (RAD ONLY) 10 ML IV (13:35)
[2024-02-27] MEDS: IOPAMIDOL-370 (76%);100ML BOTTLE 85 ML IV (13:35)
[2024-02-27] MEDS: NITROGLYCERIN 0.4MG SL TABLET SL (13:43)
== END 2024-02-27 13:30 | disposition home or self-care (01) ==
PROVIDERS: PCP Nurse Practitioner; Visit Provider Physician Assistant
DX: I25.10 Atherosclerotic heart disease of native coronary artery without angina pectoris (principal); Z82.49 Family history of ischemic heart disease and other diseases of the circulatory system
CPT/HCPCS: 75574; 80048; Q9967

== ENCOUNTER 2024-03-22 08:18 | Day surgery (SDC) | payer OTHER, SELFPAY ==
[2024-03-22] VITALS (12 sets, daily range): BP systolic 154–193; BP diastolic 82–94; PULSE 42–54; RESP 18–20; O2SAT 95–99; BMI 21.4
--- NOTE | 2024-03-22 07:54 | IR_ITS ---
APPROVED REPORT Patient Location: [facility] Specialist: Nate Mcdaniel, RT (R) PROCEDURES Left heart catheterization Left ventriculogram Selective coronary angiogram INDICATION Abnormal CCTA Informed consent was obtained prior to the procedure. COMPLICATIONS None Estimated Blood Loss: Less than 10 mls TECHNIQUE One percent lidocaine used to anesthetize the right anterior aspect of the wrist. The right radial artery was accessed via the Seldinger technique. A 6 Finnish sheath was placed in the right radial artery. 2.5 mg of Verapamil, 800 mcg of nitroglycerin, 1mg Lidocaine and 5000 U Heparin were given through the arterial sheath. The 6 Finnish JL 3 guide catheter was also used to perform left heart catheterization, left ventriculogram and selective coronary angiogram. At the end of the procedure the sheath was removed good hemostasis was achieved using Traclet band, patient was transferred to the postop holding area in stable condition. ANGIOGRAPHIC RESULTS The left main artery Normal The left anterior descending artery Has proximal calcified 50% stenoses which extend into the mid segment. The mid segment and has additional 30 to 40% stenosis The circumflex artery Is nondominant and has a proximal eccentric 30 to 40% ostial stenosis with an additional eccentric 20 to 30% stenosis The right coronary artery Large and dominant has proximal 30% followed by an additional concentric 30 to 40% stenosis with a mid vessel 20% stenosis and a distal tandem 30 to 40% stenosis The POTTER ventriculogram reveals Normal 65% The left ventricular end-diastolic pressure 15 mmHg IMPRESSION Moderate calcified proximal LAD disease which is best managed medically at this time If chest pain continues would consider functional study. It appears as though patient is experiencing shortness of breath and is a heavy smoker. Recommend PFTs and pulmonology evaluation Aggressive risk factor modification Coronary anatomy is more favorable for coronary artery bypass surgery rather than stenting should coronary artery disease advance and require revascularization PLAN 1. Aggressive risk factor modification 2. Recommend PFTs 3. Consider functional stress test if angina persists and is recalcitrant to medical management 4. Referral to pulmonology Electronically signed by : Emmanuel Real MD 03/22/2024 10:50:15
[2024-03-22 08:58] LABS: Basophils # 0.1 K/mm3 (0-0.2); Basophils % 0.6 % (0.1-2.0); Eosinophils % 9.4 % (0.1-12.0); Hematocrit 41.5 % (42.0-52.0); Hemoglobin 13.8 g/dL (14.1-18.0); Lymphocytes # 2.9 K/mm3 (0.7-4.5); Lymphocytes % 27.7 % (10-50); Mean Corpuscular HGB Conc 33.3 g/dL (31.8-35.4); Mean Corpuscular Hemoglobin 30.3 pg (27.0-31.2); Mean Corpuscular Volume 91.2 fl (80-94); Monocytes % 9.4 % (1.7-9.3); Neutrophils # 5.4 K/mm3 (1.8-7.8); Neutrophils % 52.5 % (37.0-80.0); Platelet Count 273 K/mm3 (142-424); Red Blood Count 4.55 M/mm3 (4.60-6.20); Red Cell Distribution Width 12.2 % (11.5-17.5); White Blood Count 10.4 K/mm3 (4.8-10.8)
[2024-03-22 09:06] LABS: Anion Gap 13.3 mEq/L (5-15); Blood Urea Nitrogen 29 mg/dl (9-20); Calcium 9.5 mg/dl (8.4-10.2); Carbon Dioxide 27 mmol/L (22.0-30.0); Chloride 104 mmol/L (98-107); Creatinine Clearance Estimated 71 mL/min (50-200); Estimated Glomerular Filt Rate 76 ml/min (>60); GFR (African American) 92 ML/MIN (>60); Glucose 91 mg/dl (74-100); Potassium 4.3 mmoL/L (3.5-5.1); Sodium 140 mmol/L (136-145)
[2024-03-22] MEDS: VERAPAMIL 2.5MG/ML 2ML VIAL 2.5 MG IV (10:20)
[2024-03-22] MEDS: HEPARIN 1,000 UNITS/ML 10ML VIAL (CATH LAB) 10000 UNIT IV (10:20)
[2024-03-22] MEDS: LIDOCAINE 1% 10ML MDV 20 ML IJ (10:20)
[2024-03-22] MEDS: HEPARIN 1,000 UNITS/500ML NS (CATH LAB) 3000 UNIT IV (10:21)
[2024-03-22] MEDS: 0.9 % SODIUM CHLORIDE 500 ML 25 ML IV (10:21)
[2024-03-22] MEDS: NITROGLYCERIN 800MCG/8ML SYR (CATH LAB) 800 MCG IA (10:22)
[2024-03-22] MEDS: diphenhydrAMINE 50MG/ML VIAL 50 MG IV (10:22)
[2024-03-22] MEDS: MIDAZOLAM HCL 1MG/ML 5ML VIAL 1 MG IV (10:43)
[2024-03-22] MEDS: FENTANYL 100MCG/2ML VIAL 50 MCG IV (10:44)
--- NOTE | 2024-03-22 11:37 | SUR.PHASEII ---
Called cardiology to request referral for pt to see pulmonology
--- NOTE | 2024-03-22 12:16 | SUR.PHASEII ---
No new bp meds per MD, aware of bp
[2024-03-22] MEDS: IOPAMIDOL-370 (76%);100ML BOTTLE 70 ML IV (13:49)
== END 2024-03-22 13:31 | disposition home or self-care (01) ==
PROVIDERS: PCP Nurse Practitioner; Visit Provider Internal Medicine
DX: I25.10 Atherosclerotic heart disease of native coronary artery without angina pectoris (principal); Z82.49 Family history of ischemic heart disease and other diseases of the circulatory system; R06.00 Dyspnea, unspecified; R93.1 Abnormal findings on diagnostic imaging of heart and coronary circulation; R94.31 Abnormal electrocardiogram [ECG] [EKG]; E78.5 Hyperlipidemia, unspecified; F17.210 Nicotine dependence, cigarettes, uncomplicated; Z79.899 Other long term (current) drug therapy
CPT/HCPCS: 80048; 85025; 93458; 99152; C1725; C1769; J1200; J1644; J2250; J3010; Q9967

== ENCOUNTER 2024-03-30 09:56 | Outpatient (CLI) | payer OTHER, SELFPAY ==
[2024-03-30 10:47] LABS: Basophils # 0.1 K/mm3 (0-0.2); Basophils % 0.6 % (0.1-2.0); Eosinophils # 1.1 K/mm3 (0.0-0.4); Hematocrit 39.2 % (42.0-52.0); Hemoglobin 12.8 g/dL (14.1-18.0); Lymphocytes # 2.3 K/mm3 (0.7-4.5); Lymphocytes % 25.8 % (10-50); Mean Corpuscular HGB Conc 32.7 g/dL (31.8-35.4); Mean Platelet Volume 10.5 fl (7.4-10.4); Monocytes # 0.7 K/mm3 (0.1-1.0); Monocytes % 8.1 % (1.7-9.3); Neutrophils # 4.7 K/mm3 (1.8-7.8); Neutrophils % 53.3 % (37.0-80.0); Platelet Count 241 K/mm3 (142-424); Red Blood Count 4.26 M/mm3 (4.60-6.20); Red Cell Distribution Width 12.4 % (11.5-17.5); White Blood Count 8.8 K/mm3 (4.8-10.8)
[2024-03-30 11:00] LABS: Albumin Level 4.4 g/dl (3.5-5.0); Chloride 103 mmol/L (98-107); Potassium 4.1 mmoL/L (3.5-5.1); Sodium 138 mmol/L (136-145)
[2024-03-30 11:03] LABS: Alanine Aminotransferase 30 U/L (12-78); Alkaline Phosphatase 65 U/L (38-126); Anion Gap 10.1 mEq/L (5-15); Aspartate Amino Transferase 38 U/L (17-59); Bilirubin,Direct 0.3 mg/dl (0.0-0.4); Bilirubin,Indirect 0.2 mg/dL (0.0-0.9); Bilirubin,Total 0.5 mg/dl (0.2-1.3); Bilirubin,Unconjugated 0.2 mg/dL (0.0-1.1); Blood Urea Nitrogen 26 mg/dl (9-20); Calcium 9.5 mg/dl (8.4-10.2); Carbon Dioxide 29 mmol/L (22.0-30.0); Cholesterol 143 mg/dl (140-200); Estimated Glomerular Filt Rate 98 ml/min (>60); GFR (African American) 119 ML/MIN (>60); Glucose 85 mg/dl (74-100); Magnesium 1.9 mg/dl (1.6-2.3); Total Protein,Serum 6.2 g/dl (6.3-8.2); Triglycerides 79 mg/dl (30-150); VLDL Cholesterol 16 mg/dL (0-40)
[2024-03-30 11:04] LABS: Chol/HDL Ratio 2.6 (1-3.5); HDL Cholesterol 54 mg/dl (40-60)
[2024-03-30 11:14] LABS: Direct LDL Cholesterol 71.46 mg/dL (100-129)
[2024-03-30 11:34] LABS: Thyroid Stimulating Hormone 4.05 uIU/mL (0.465-4.68)
== END 2024-03-30 23:59 | disposition home or self-care (01) ==
LOC: LAB 09:58
PROVIDERS: PCP Nurse Practitioner; Visit Provider Nurse Practitioner Family
DX: R93.1 Abnormal findings on diagnostic imaging of heart and coronary circulation (principal); R94.31 Abnormal electrocardiogram [ECG] [EKG]; E78.5 Hyperlipidemia, unspecified; R06.00 Dyspnea, unspecified; I25.10 Atherosclerotic heart disease of native coronary artery without angina pectoris; Z82.49 Family history of ischemic heart disease and other diseases of the circulatory system
CPT/HCPCS: 36415; 80048; 80061; 80076; 83735; 84439; 84443; 85025

== ENCOUNTER 2024-06-05 11:46 | Outpatient (CLI) | payer OTHER, SELFPAY ==
[2024-06-05 11:51] LABS: Microscopic, Urine URINE MICROSCOPIC (MICROSCOPIC)
[2024-06-05 12:18] LABS: Basophils # 0.1 K/mm3 (0-0.2); Basophils % 0.6 % (0.1-2.0); Eosinophils # 0.4 K/mm3 (0.0-0.4); Eosinophils % 5.5 % (0.1-12.0); Hematocrit 38.9 % (42.0-52.0); Hemoglobin 13.1 g/dL (14.1-18.0); Lymphocytes # 2.1 K/mm3 (0.7-4.5); Lymphocytes % 25.8 % (10-50); Mean Corpuscular HGB Conc 33.7 g/dL (31.8-35.4); Mean Corpuscular Hemoglobin 30.7 pg (27.0-31.2); Mean Corpuscular Volume 91.1 fl (80-94); Mean Platelet Volume 9.8 fl (7.4-10.4); Monocytes # 0.8 K/mm3 (0.1-1.0); Monocytes % 9.8 % (1.7-9.3); Neutrophils # 4.7 K/mm3 (1.8-7.8); Neutrophils % 57.7 % (37.0-80.0); Platelet Count 381 K/mm3 (142-424); Red Blood Count 4.27 M/mm3 (4.60-6.20); Red Cell Distribution Width 12.3 % (11.5-17.5); White Blood Count 8.1 K/mm3 (4.8-10.8)
[2024-06-05 12:23] LABS: Appearance,Urine CLEAR (Clear); Bilirubin,Urine Negative (Negative); Blood, Urine Negative (Negative); Color,Urine YELLOW (Yellow); Glucose,Urine (UA) Negative (Negative); Ketones,Urine Negative (Negative); Leukocyte Esterase,Urine Negative (Negative); Nitrate,Urine Negative (Negative); Protein,Urine Negative (Negative); Urobilinogen,Urine 0.2 EU/dl (0.2)
[2024-06-05 12:54] LABS: WBC,Urine Occasional #/hpf (0-3)
[2024-06-05 12:57] LABS: Iron 111 ug/dL (49-181)
[2024-06-05 12:58] LABS: Cholesterol 163 mg/dl (140-200); HDL Cholesterol 54 mg/dl (40-60); Triglycerides 90 mg/dl (30-150); VLDL Cholesterol 18 mg/dL (0-40)
[2024-06-05 13:09] LABS: Direct LDL Cholesterol 79.76 mg/dL (100-129); Total Iron Binding Capacity 345 ug/dL (261-462)
[2024-06-05 13:17] LABS: 25-OH Vitamin D, Total 35.3 ng/mL (30-100)
[2024-06-05 13:30] LABS: Prostate Specific Ag Screen 2.3 ng/ml (0.0-4.0)
[2024-06-05 13:34] LABS: Ferritin 175 ng/ml (17.9-464)
[2024-06-05 13:40] LABS: HIV Combo NEGATIVE (Negative)
[2024-06-05 13:48] LABS: Hepatitis C Ab Qual. W/ RFX NEGATIVE (Negative)
[2024-06-05 13:49] LABS: Vitamin B12 929 pg/mL (239-931)
[2024-06-05 14:17] LABS: Folate > 20.00 ng/mL
[2024-06-05 14:18] LABS: Hemoglobin A1C 5.9 % (4.0-6.0)
== END 2024-06-05 23:59 | disposition home or self-care (01) ==
LOC: LAB 11:47
PROVIDERS: PCP Nurse Practitioner Family; Visit Provider Nurse Practitioner Family
DX: E78.2 Mixed hyperlipidemia (principal); F17.200 Nicotine dependence, unspecified, uncomplicated; F41.9 Anxiety disorder, unspecified; F19.11 Other psychoactive substance abuse, in remission; I25.10 Atherosclerotic heart disease of native coronary artery without angina pectoris; R06.09 Other forms of dyspnea; F39 Unspecified mood [affective] disorder; R53.83 Other fatigue; E11.9 Type 2 diabetes mellitus without complications; I10 Essential (primary) hypertension
CPT/HCPCS: 36415; 80061; 81001; 82306; 82607; 82728; 82746; 83036; 83540; 83550; 85025; 86803; 87086; 87389; G0103

== ENCOUNTER 2024-07-27 14:18 | Emergency (ER) | payer OTHER, SELFPAY ==
[2024-07-27 14:47] VITALS: BP 141/86; PULSE 84; RESP 18; O2SAT 98
[2024-07-27 14:50] LABS: Microscopic, Urine URINE MICROSCOPIC (MICROSCOPIC)
[2024-07-27 14:53] LABS: Appearance,Urine CLEAR (Clear); Bilirubin,Urine Negative (Negative); Blood, Urine Negative (Negative); Color,Urine YELLOW (Yellow); Glucose,Urine (UA) Negative (Negative); Ketones,Urine Negative (Negative); Leukocyte Esterase,Urine Negative (Negative); Nitrate,Urine Negative (Negative); Protein,Urine Negative (Negative); Urobilinogen,Urine 0.2 EU/dl (0.2)
[2024-07-27 14:55] VITALS: BP 141/86; PULSE 73; RESP 18; TEMP 36.7; O2SAT 98; BMI 21.4
[2024-07-27 15:00] VITALS: BP 150/95; PULSE 69; RESP 18; O2SAT 97
--- NOTE | 2024-07-27 15:05 | CT_ITS ---
FINAL REPORT CLINICAL HISTORY: Left-sided lower back pain COMPARISON: None FINDINGS: CT LUMBAR SPINE TECHNIQUE: Thin section noncontrast axial CT with sagittal reconstructions This study was performed with techniques to keep radiation doses as low as reasonably achievable, (ALARA). Individualized dose reduction techniques using automated exposure control or adjustment of mA and/or kV according to the patient's size were employed. FINDINGS: No fracture is present. Mild dextroscoliosis is present. T11-12: A minimal annular bulge is present without evidence of canal stenosis or neural foraminal narrowing. T12-L1: A minimal annular bulge is present without evidence of canal stenosis or neural foraminal narrowing. L1-L2: A mild annular bulge is present, covered by osteophyte, with moderate bilateral neural foraminal narrowing. L2-L3: A moderate annular bulge is present with mild central canal stenosis and mild bilateral neural foraminal narrowing. L3-L4: A moderate annular bulge and facet arthropathy, with mild central canal stenosis, and mild bilateral neural foraminal narrowing. L4-L5: A moderate annular bulge is present with facet arthropathy and ligamentum flavum hypertrophy, moderate central canal stenosis and severe bilateral neural foraminal narrowing. L5-S1: A mild annular bulge with facet arthropathy is present, with moderate right and mild left neural foraminal narrowing. IMPRESSION: Multilevel lumbar degenerative change is present, most pronounced at the L4-5 level. MRI of the lumbar spine is suggested for further evaluation as clinically indicated. This study was performed using automated techniques to achieve radiation exposure as low as reasonably achievable Reviewed, Interpreted and Dictated by Yuan Almonte MD Transcribed by Porsche Solomon Authenticated and [facility]
--- NOTE | 2024-07-27 15:11 | ED_ITS ---
<Statement entered by Joel Hernandez MD - 07/27/24 19:12> Independently examined the patient and he has good strength and sensory in bilateral lower extremities. No saddle anesthesia no urinary continence. He has more paraspinal tenderness of his lumbar spine. I suspect sprain versus strain. It is possible he is a bulging disc, but no concerning red flag symptoms for cauda equina. He is ambulatory in the emergency department and pain well-controlled after multimodal pain control. Will discharge with follow- up with PCP and recommended physical therapy. I was consulted by the RICHELLE, and we discussed the complexity of problems being addressed. I approved the treatment and management plan for this patient's care in the emergency department, thus performing a substantial portion of the medical decision making. Joel Hernandez MD Discharge Plan Disposition Patient Disposition: Home, Self-Care Condition: Good Prescriptions Prescriptions: New cyclobenzaprine 10 mg tablet 10 mg PO HS PRN (Reason: muscle spasm) Qty: 30 0RF No Action buprenorphine-naloxone 8-2 mg tablet, sublingual 1 tab sublingual BID aspirin [Adult Low Dose Aspirin] 81 mg tablet,delayed release (DR/EC) 81 mg PO DAILY Qty: 90 3RF atorvastatin [Lipitor] 40 mg tablet 40 mg PO DAILY Qty: 90 3RF multivitamin [One Daily Multivitamin] Tablet 1 tab PO DAILY Qty: 90 3RF metoprolol succinate [Toprol XL] 25 mg tablet extended release 24 hr 25 mg PO DAILY Qty: 90 3RF sennosides [senna] 8.6 mg tablet 8.6 mg PO DAILY PRN (Reason: constipation) Qty: 30 0RF meloxicam 15 mg tablet 15 mg PO DAILY Qty: 90 3RF levocetirizine 5 mg tablet 5 mg PO DAILY Qty: 90 2RF pseudoephedrine HCl 30 mg tablet 60 mg PO Q6H PRN (Reason: nasal congestion) Qty: 60 2RF Rx Instructions: Start with one tablet, increase to two tablets per dose if one not effective Referrals Follow up/Referrals: Hernan Moore MD [Staff Physician] - See instructions Michael Lester III, MD [Referring] - See instructions Provider,Referral, [Primary Care Provider] - See instructions Activity Restrictions/Add. Instructions Additional Instructions/Restrictions: Please follow-up with your family doctor, I would recommend obtaining an MRI as an outpatient, I recommend rest ice ibuprofen Tylenol other anti-inflammatory medications as needed for pain, recommend physical therapy and consultation with pain management/spine surgery/neurosurgery in the upcoming weeks/months. Please utilize muscle relaxer as prescribed. Please return to the emergency department with any worsening signs or symptoms. Clinical Impressions Clinical Impression: Degenerative disc disease (DDD) of lumbosacral region with axial back pain without leg pain Instructions Patient Instructions: DI for Low Back Pain, DI for Back Pain With Sciatica Print Language Print Language: Faroese Discharge ED Provider: Joel Hernandez Adult HPI General Chief complaint: Back Pain/Injury Stated complaint: Severe lower back pain Time Seen by Provider: 07/27/24 14:51 History of Present Illness HPI narrative: 63-year-old male presents the emergency department with left-sided lower spine pain, patient states this has been ongoing chronically for quite some time, 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 He denies any real radicular symptomatology, no inciting trauma, or event, has radicular symptomatology at times, left lower extremity, with associated numbness and tingling at time, none currently, denies any urinary bladder or bowel dysfunction, no saddle anesthesia, no fever chills chest pain shortness of breath nausea vomiting constipation diarrhea, no abdominal pain, he has been utilizing Suboxone , that is no relief of symptomatology, patient previously prescribed muscle relaxers but is not been able to get them, which did provide some relief to his symptomatology, other past medical history consistent with current everyday smoker, prior ACDF 2 levels unsure of which levels of his cervical spine, degenerative disc disease of the spine, history of substance abuse, anxiety, coronary artery disease, hyperlipidemia, mood disorder. Denies any other alcohol or drug use, initial triage vitals unremarkable. Onset (ago): month(s) Related Data Home Medications ?Medication ?Instructions ?Recorded ?Confirmed buprenorphine 8 mg-naloxone 2 mg 1 tab sublingual BID Pain 12/10/21 07/27/24 sublingual tablet Previous Rx's ?Medication ?Instructions ?Recorded aspirin 81 mg tablet,delayed 81 mg PO DAILY #90 tabs 05/27/24 release (Adult Low Dose Aspirin) atorvastatin 40 mg tablet (Lipitor) 40 mg PO DAILY #90 tabs 05/27/24 multivitamin (One Daily 1 tab PO DAILY #90 tabs 05/27/24 Multivitamin tablet) metoprolol succinate 25 mg 25 mg PO DAILY #90 tabs 06/29/24 tablet,extended release 24 hr (Toprol XL) sennosides 8.6 mg tablet (senna) 8.6 mg PO DAILY PRN constipation 06/29/24 #30 tabs levocetirizine 5 mg tablet 5 mg PO DAILY #90 tabs 07/09/24 meloxicam 15 mg tablet 15 mg PO DAILY #90 tabs 07/09/24 pseudoephedrine HCl 30 mg tablet 60 mg (2 x 30 mg) PO Q6H PRN nasal 07/09/24 congestion #60 tabs cyclobenzaprine 10 mg tablet 10 mg PO HS PRN muscle spasm #30 07/27/24 tabs Allergies Allergy/AdvReac Type Severity Reaction Status Date / Time No Known Allergies Allergy Verified 07/27/24 15:18 PFSH PFS Disclaimer: The information contained in this section may have been updated after the patient was seen, as this information can be updated by other users. Medical History Abnormal electrocardiogram [ECG] [EKG] Abnormal findings on diagnostic imaging of heart and coronary circulation Anxiety Atypical angina Back pain Bilateral otitis media Cervical radiculopathy Coronary artery calcification seen on CT scan Coronary artery disease Encounter to establish care Family history of coronary artery disease in mother HLD (hyperlipidemia) Low back pain Mood disorder Muscle spasm Muscle strain of right wrist Neck pain Smoker 1ppd since he was a teenager STD exposure Viral respiratory illness Surgical History H/O hand surgery H/O knee surgery left and right H/O neck surgery History of back surgery History of surgery on lower extremity Family History Other No significant family history Social History (Updated 07/09/24 @ 10:42 by Keily Bailey CMA) Smoking Status: Current every day smoker tobacco type: cigarettes packs per day: 1 second hand exposure: No alcohol intake: current alcohol intake frequency: holidays/special occasions only substance use type: former substance user, marijuana, opiates and other details: he states that he has tried just about everything at least once counseling given: No current occupational status: employed Travel in the last 8 weeks?: None adopted: No caregiver/support person: No foster care: No household members: significant other housing: apartment lives independently: Yes number of children: 2 number of grandchildren: 1 Have you lived/traveled outside [place] in past 30 days?: No Contact w/someone who lives/traveled outside [place] past 30 days?: No Exposure to someone with infectious disease in past 14 days?: No Do you have a fever (greater than 100.4 F or 38 C)?: No Have you tested positive for COVID-19?: No Exposed to someone with COVID-19 in past 14 days?: No Do you have a sore throat?: No Do you have a cough?: No Do you have any weakness?: No Do you have any diarrhea?: No Are you experiencing any unusual bleeding?: No Do you have any muscle aches/pain?: Yes Do you have any abdominal pain?: No Are you experiencing loss of taste or smell?: No Other Medical History Have you received the Flu Vaccine for this season: No Have you received the Pneumonia Vaccine: No ROS Obtained: Yes All systems reviewed & no additional complaints except as documented Physical Exam General General appearance: alert and in no apparent distress Head Head exam: atraumatic and normocephalic Eye Eye exam: Present PERRL and EOMI ENT ENT exam: Present mucous membranes moist Neck Neck exam: Present normal inspection Chest Chest inspection: Present normal inspection and symmetric chest wall rise Respiratory Respiratory exam: Present normal lung sounds bilaterally; Absent respiratory distress Cardiovascular Cardiovascular exam: Present regular rate and normal rhythm Abdominal Exam Abdominal exam: Present soft; Absent tenderness Extremities Exam Extremities exam: Present normal inspection Back Exam Back exam: Present tenderness and paraspinal tenderness; Absent vertebral tenderness, sciatic notch tenderness (R), sciatic notch tenderness (L), straight leg raise (R) or straight leg raise (L) Comment: There is left-sided paraspinal tenderness palpation, to the lower lumbar spine, negative straight leg test bilaterally, negative spinal tenderness, no step-offs or deformities of the cervical T-spine or L-spine Neurological Exam Neurological exam: Present alert, oriented X3 and other (Patient has 5 out of 5 strength in the bilateral lower and upper extremities, no gross sensation deficit,) Psychiatric Psychiatric exam: Present normal affect Skin Skin exam: Present warm and dry Medical Decision Making Medical Records Medical records reviewed: Yes I reviewed the patient's medical records. Screening: Per USPSTF and CDC recommendations, given the prevalence of disease in our region, it is our hospital?s policy to screen for HIV and viral Hepatitis for all patients aged 18 and over and those with ongoing risk factors. [place] Inquiry Pt receiving controlled substance: No Vital Signs: 07/27/24 14:47 07/27/24 14:55 07/27/24 15:00 Temperature 98.0 F Temperature Source Oral Pulse Rate 84 69 Pulse Rate [Left Brachial] 73 Respiratory Rate 18 18 18 Blood Pressure 141/86 H 150/95 H Blood Pressure [Right Arm] 141/86 H Blood Pressure Mean 104 113 Blood Pressure Mean [Right Arm] 104 02 Sat by Pulse Oximetry 98 98 97 Oxygen Delivery Method Room Air 07/27/24 15:30 07/27/24 16:00 Temperature Temperature Source Pulse Rate 63 60 Pulse Rate [Left Brachial] Respiratory Rate 18 Blood Pressure 127/79 153/83 H Blood Pressure [Right Arm] Blood Pressure Mean 106 Blood Pressure Mean [Right Arm] 02 Sat by Pulse Oximetry 97 98 Oxygen Delivery Method Room Air Lab Data Lab Results 07/27/24 14:46: Urine Color Yellow, Urine Appearance Clear, Urine pH 6.0, Ur Specific [place] 1.010, Urine Protein Negative, Urine Glucose (UA) Negative, Urine Ketones Negative, Urine Blood Negative, Urine Nitrate Negative, Urine Bilirubin Negative, Urine Urobilinogen 0.2, Ur Leukocyte Esterase Negative, Urine RBC Occasional, Urine WBC Occasional, Ur Squamous Epith Cells Occasional, Urine Bacteria Trace, Urine Mucus Trace Orders (Tests/Meds): ED MEDICATIONS Discontinued Medications Generic Name Dose Route Start Last Admin Trade Name Bakariq PRN Reason Stop Dose Admin Acetaminophen 500 mg 07/27/24 15:07 07/27/24 15:33 Acetaminophen 500mg Tab PO 07/27/24 15:08 500 mg ONCE ONE Administration Cyclobenzaprine HCl 10 mg 07/27/24 15:06 07/27/24 15:33 Cyclobenzaprine 10mg Tablet PO 07/27/24 15:07 10 mg ONCE ONE Administration Dexamethasone Sodium Phosphate 10 mg 07/27/24 15:22 07/27/24 15:33 Dexamethasone 4mg/Ml 1ml Vial IM 07/27/24 15:23 10 mg ONCE ONE Administration Ketorolac Tromethamine 15 mg 07/27/24 15:22 07/27/24 15:33 Ketorolac 30mg/Ml Vial IM 07/27/24 15:23 15 mg ONCE ONE Administration Lidocaine 1 each 07/27/24 15:07 07/27/24 15:34 Lidocaine 5% Transdermal Patch TD 07/27/24 15:08 1 each ONCE ONE Administration ORDERS Category Date Time Status CT lumbar spine wo con Stat Cat Scan 07/27/24 15:05 Completed UA [Urinalysis and Microscopic] Stat Lab 07/27/24 14:46 Completed Medical Decision Narrative: 63-year-old male presents emerged part with lower lumbar spine pain, differential diagnose include but not limited to, acute lumbar sacral strain, malingering, degenerative disc disease of the spine, facet arthropathy, herniated nucleus pulposus, foraminal stenosis, lumbar spinal stenosis, among others. I discussed this patient's case with the attending physician Dr. Hernandez, he saw and examined the patient as well. Will give 500 mg Tylenol, 15 mg IM Toradol, 10 mg IM dexamethasone, p.o. 10 mg Flexeril and Lidoderm patch for symptomatic relief, will obtain CT lumbar spine without contrast for further evaluation as characterization, as well is urinalysis. Urinalysis is unremarkable, no hematuria, no nitrates, no leukocyte esterase. I reviewed the patient's CT lumbar spine without contrast along the corresponding radiologic report, multilevel lumbar degenerative changes present most pronounced at the L4-L5 level, MRI lumbar spine suggested for further evaluation as clinically indicated. Reexamination of patient approximately 4:10 PM, patient is feeling better after analgesia, will prescribe low-dose muscle relaxer p.o. Flexeril 10 mg as needed for symptomatic relief, patient will need MRI and follow-up with physical therapy pain management, and possible spine surgery consultation. Patient voiced understanding of the current treatment plan/discharge plan, patient has no other red flag signs or symptoms to correspond with cauda equina syndrome to include urinary bladder or bowel dysfunction no saddle anesthesia, patient has 5 out of 5 strength in bilateral lower and upper extremities. Patient voiced understanding and agreement with current treatment plan/discharge plan. Will return to the emergency department for any worsening signs or symptoms. Critical Care Critical Care Time Critical Care Time: No
[2024-07-27 15:30] VITALS: BP 127/79; PULSE 63; RESP 18; O2SAT 97
[2024-07-27] MEDS: KETOROLAC 30MG/ML VIAL 15 MG IM (15:33)
[2024-07-27] MEDS: ACETAMINOPHEN 500MG TAB 500 MG PO (15:33)
[2024-07-27] MEDS: DEXAMETHASONE 4MG/ML 1ML VIAL 10 MG IM (15:33)
[2024-07-27] MEDS: CYCLOBENZAPRINE 10MG TABLET 10 MG PO (15:33)
[2024-07-27] MEDS: LIDOCAINE 5% TRANSDERMAL PATCH 1 EACH TD (15:34)
[2024-07-27 15:37] LABS: Bacteria,Urine Trace /lpf; Mucus,Urine Trace /lpf; RBC,Urine Occasional #/hpf (0-3); Squamous Epithelial Cell,Urine Occasional #/hpf (0-5); WBC,Urine Occasional #/hpf (0-3)
[2024-07-27 16:00] VITALS: BP 153/83; PULSE 60; O2SAT 98
[2024-07-27 16:19] VITALS: BP 153/83; PULSE 58; RESP 18; TEMP 36.9; O2SAT 98
== END 2024-07-27 16:24 | disposition home or self-care (01) ==
PROVIDERS: Emergency Medicine; Emergency Provider Emergency Medicine
DX: M51.370 Other intervertebral disc degeneration, lumbosacral region with discogenic back pain only (principal); F17.210 Nicotine dependence, cigarettes, uncomplicated
CPT/HCPCS: 72131; 81001; 96372; 99284; J1100; J1885

== ENCOUNTER 2024-08-10 09:14 | Outpatient (CLI) | payer OTHER, SELFPAY | END 2024-08-10 23:59 | disposition home or self-care (01) | LOC: RAD 09:14 | PROVIDERS: PCP Internal Medicine; Visit Provider Nurse Practitioner Family | DX: M54.16 Radiculopathy, lumbar region (principal) ==

== ENCOUNTER 2024-08-19 14:11 | Outpatient (CLI) | payer OTHER, SELFPAY ==
--- OUTSIDE RECORDS SUMMARY | 2020-02-10 12:14 | XMS_ITS | Continuity of Care Document ---
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 Role Phone No Information Unavailable Unavailable Allergies, Adverse Reactions, Alerts Substance Reaction Status Criticality No Known Drug Allergies Active No I nformation Medications Medication Instructions Dosage Effective Dates (start - stop) Status Comments Flexeril 10 mg Tab take 1 tablet (10MG) by ORAL route every 8 hours prn spasm 10 MG - Active [place] 5 mg-325 mg Tab take 1 tablet [...] Provider Providers Copied on Encounter [facility], [address] [facility], [place], [address], [place] tel:[phone] No Information Dec-0 3 0 No Information Office/outpa tient visit,est, mod [facility], [address], [place], [facility], tel:[phone] [facility] cervical spine surgery (chief complaint) No Information 3 Rodway Leroy. [address], [place], [address] [place] [address], [place]. tel:[phone] [facility], [facility] [address] [place], [facility], [place] tel:[phone] [facility] No Information 3 Rodway Leroy. [address], [place], [address] [place] [address], [place]. tel:[phone] [facility], [facility] [address], [facility], [place] tel:[phone] [facility] No Information 3 Lata Peter. [address], [place], [address] [place] [address], [place]. tel:[phone] [facility], [facility] [address], [facility], [place] tel:[phone] [facility] No Information 2 Darrellcornelius David. [address] [facility], [address], [address] [place] [address], [place]. tel:[phone] Office/outpa tient visit,est, mod [facility], [facility] [address] [place], [facility], [place] tel:[phone] [facility] cervical spine surgery (chief complaint) No Information 2 Rodway Leroy. [address], [place], [address] [place] [address], [place]. tel:[phone] Office/outpa tient visit,est, mod [facility], [facility] [address] [place], [facility], [place] tel:[phone] [facility] cervical spine surgery (chief complaint) cervical spine surgery (chief complaint) No Information 2 Rodway Leroy. [address], [place], [address] [place] [address], [place]. tel:[phone] [facility], [facility] [address] [place], [facility], tel:[phone] 700 [facility] No Information 2 Rodway Leroy. [address], [place], [address] [place] [address], [place]. tel:[phone] Office/outpa tient visit,est, mod [facility], [address] [place] [address], [facility], tel:[phone] [facility] cervical spine surgery (chief complaint) No Information 2 Rodway Leroy. [address] [place], [place], [address] [place] [address], [place]. tel:[phone] [facility], [address] [place] [address], [facility], [place] tel:[phone] 700 [facility] No Information 2 Padma Hernandez. [address] [place], [place], [address] [place] [address], [place]. tel:[phone] Referring Provider: Leroy Holman, [address] [place], [address] . tel:[phone] Office/outpa tient visit,est, mod [facility], [address] [place] [address], [facility], [place] tel:[phone] [facility] cervical spine surgery (chief complaint) No Information 2 Rodway Leroy. [address] [place], [place], [address] [place] [address], [place]. tel:[phone] [facility], [address] [place] [address], [facility], [place] tel:[phone] 700 [facility] No Information Mar-3 0-201 2 Rodway Leroy. [address], [place], [id number], [place]. tel:[phone] Referring Provider: Leroy Holman, [address] [place], [address] . tel:[phone] [facility], [facility] [address] [place], [facility], [place] tel:[phone] [facility] cervical spine surgery (chief complaint) No Information 1-201 2 Rodway Leroy. [address], [place], [id number], [place]. tel:[phone] [facility], [address] [place] [address], [facility], [place] tel:[phone] 700 [facility] No Information 0 5-201 2 Rodway Leroy. [address] [place], [place], [address] [place] [address], [place]. tel:[phone] [facility], [facility] [address] [place], [facility], [place] tel:[phone] [facility] cervical spine surgery (chief complaint) No Information 8-201 2 Rodway Leroy. [address], [place], [id number], [place]. tel:[phone] [facility], [address] [place] [address], [facility], [place] tel:[phone] [facility] cervical spine surgery (chief complaint) No Information 9-201 2 Rodway Leroy. [address], [place], [id number], [place]. tel:[phone] [facility], [facility] [address] [place], [facility], [place] tel:[phone] 700 [facility] No Information 201 1 Rodway Leroy. [address], [place], [id number], [place]. tel:[phone] [facility], [address] [place], [address], [place] tel:[phone] [facility] No Information 1 Holden Mark. [address], [place], [place], [id number], [place]. tel:[phone] Office/outpa tient visit,est, mod [facility], [address], [facility], [place] tel:[phone] [facility] No Information 1 Rodway Leroy. [address], [place], [id number], [place]. tel:[phone] [facility], [facility] [address] [place], [facility], [place] tel:[phone] [facility] No Information 1 Rodway Leroy. [address], [place], [id number], [place]. tel:[phone] Office/outpa tient visit,est, mod [facility], [facility] [address] [place], [facility], [place] tel:[phone] [place] cervical spine pain (chief complaint) No Information 1 Rodway Leroy. [address] [place], [place], [id number], [place]. tel:[phone] Office/outpa tient visit,est, mod [facility], [facility] [address] [place], [facility], [place] tel:[phone] [place] cervical spine pain (chief complaint) No Information 1 Rodway Leroy. [address], [place], [id number], [place]. tel:[phone] [facility], [facility] [address] [place], [facility], [place] tel:[phone] [facility] No Information 1 Padma David. [address] [place], [place], [id number], [place]. tel:[phone] [facility], [facility] [address] [place], [facility], tel:[phone] 700 [facility] No Information 3- 1 Padma Hernandez. [address] [place], [place], [id number], [place]. tel:[phone] Referring Provider: Leroy Holman, [address] [place], [address] . tel:[phone] Office/outpa tient visit,est, mod [facility], [address] [place] [address], [facility], tel:[phone] [facility] cervical spine pain (chief complaint) No Information 0- 1 Gian Stevenn. [address] [place], [place], [address] [place] [address], [place]. tel:[phone] [facility], [address] [place] [address], [facility], [place] tel:[phone] [facility] No Information Sep-2 1 Lata Lux. [address], [place], [address] [place] [address], [place]. tel:[phone] Office/outpa tient visit,est, mod [facility], [address] [place] [address], [facility], tel:[phone] [facility] cervical spine pain (chief complaint) No Information Sep-2 1 Gian Leroy. [address], [place], [address] [place] [address], [place]. tel:[phone] [facility], [address] [place] [address], [facility], [place] tel:[phone] 700 [facility] No Information Sep-0 6- 1 No Information [facility], [address] [place] [address], [facility], tel:[phone] 700 Brittney Mccoy No Information Nov-0 - 1 Lata Peter. [address], [place], [id number], [place]. tel:[phone] [facility], [facility] [address] [place], [facility], tel:[phone] Brittney Mcc[facility] No Information 1 No Information [facility], [facility] [address] [place], [facility], [place] tel:[phone] Britt[facility] No Information Oct- 1 No Information [facility] [place] [facility] [address], [place], [facility], [place] tel:[phone] Britt[facility] No Information 1 Reji Waggoner. [address], [place], [place], [id number], [place]. tel:[phone] Office/outpa tient visit,est, mod [facility], [facility] [address] [place], [facility], [place] tel:[phone] Brittney Mcc[facility] No Information 0 1 No Information [facility] [place] [address], [place], [facility], [place] tel:[phone] Brittney [facility] No Information 0 1 Lata Peter. [address], [place], [id number], [place]. tel:[phone] [facility], [facility] [address] [place], [facility], [place] tel:[phone] Brittney Mcc[facility] No Information 1 Lata Peter. [address], [place], [id number], [place]. tel:[phone] [facility] [place] [address], [place], [facility], tel:[phone] Brittney M[facility] No Information 1 Kasandra Castanon. . Referring Provider: Jose J Go, [address] [place], [address] . tel:[phone] [facility], [facility] [address] [place], [facility], [place] tel:[phone] [facility] No Information 1 Lata Lux. [address], [place], [id number], [place]. tel:[phone] [facility], [facility] [address] [place], [facility], [place] tel:[phone] [facility] No Information 1 Asya Walden. [address] [place], [place], [id number], [place]. tel:[phone] [facility], [address] [place] [address], [facility], [place] tel:[phone] [facility] No Information 1 Lata Lux. [address], [place], [address] [place] [address], [place]. tel:[phone] [facility], [facility] [address] [place], [facility], [place] tel:[phone] [facility] No Information 1 Lata Lux. [address], [place], [address] [place] [address], [place]. tel:[phone] Office/outpa tient visit,est, mod [facility], [facility] [address] [place], [facility], [place] tel:[phone] [facility] No Information 1 Lata Lux. [address], [place], [address] [place] [address], [place]. tel:[phone] Office/outpa tient visit,est, mod [facility], [facility] [address] [place], [facility], [place] tel:[phone] 700 Brittney Mccoy No Information No Information [facility], [address] [place], [address], [place] tel:[phone] Brittney Mccoy No Information No Information Office/outpa tient visit,[facility], [address] [place], [address], [place] tel:[phone] Brittney Mccoy cervical spine pain (chief [...] tuberculosis Payers Payer name Insurance type Covered democrat ID Authoriza tion(s) No Information Social History [...]
--- NOTE | 2024-08-19 14:23 | MR_ITS ---
FINAL REPORT CLINICAL HISTORY: lumbar pain, radiating to left hip and leg FINDINGS: Multiplanar MR imaging of the lumbar spine was performed without contrast. On the sagittal T2-weighted images, there is abnormal decreased signal throughout the lumbar discs. The vertebrae are of normal height. The vertebral alignment is normal. T12-L1: There is no significant canal stenosis or neuroforaminal narrowing. L1-2: Mild diffuse disc bulge. Right posterolateral disc protrusion with moderate right and mild left neuroforaminal narrowing. L2-3: Moderate diffuse disc bulge. Posterolateral protrusions with moderate bilateral neuroforaminal narrowing. L3-4: Mild diffuse disc bulge. Mild bilateral neuroforaminal narrowing. L4-5: Moderate diffuse disc bulge. Posterolateral disc protrusions with moderate to high-grade right and high-grade left neuroforaminal narrowing. L5-S1: There is no significant canal stenosis or neural foraminal narrowing. IMPRESSION: Multilevel changes of degenerative disc disease with neuroforaminal narrowing, particularly evident on the left at L4-5. Reviewed, Interpreted and Dictated by Omid Guerrero MD Transcribed by Farnaz Spencer Authenticated and [facility]
--- OUTSIDE RECORDS SUMMARY | 2024-08-19 15:01 | XMS_ITS | Clinical Summary ---
Author Organization [facility] Address [address] [place], [place] [id number] Phone Care Team Providers Care Professional Development Instructor Name Role Phone Outside, Provider Unavailable [phone] Conditions or Problems No information available. Medications No information available. Medications Administered No information available. Allergies, Adverse Reactions, Alerts No information available. Results No information available. Plan of Care No information available. Procedures No information available. Vital Signs No information available. Immunizations No information available. Advance Directives No information available.
--- OUTSIDE RECORDS SUMMARY | 2024-08-19 15:02 | XMS_ITS | Clinical Summary ---
Author Organization [facility] Address [address] [place] [address] [place] [address] Phone Care Team Providers Care Ur Coordinator Name Role Phone Nate Lester MD Primary Care Provider + [phone] Allergies No known active allergies Medications Buprenorphine (BUTRANS) 20 MCG/HR PTWK Apply topically. Active atorvastatin (LIPITOR) 10 MG TABS Take 10 mg by mouth daily. Active hydrocodone-acet aminophen (LORTAB) 7.5-325 MG TABS Take 1 tablet by mouth every 6 (six) hours as needed. Active Active Problems Problem Noted Date Diagnosed Date Status post cervical spinal fusion 02/10/2020 [facility] ALLOWED: M50.322 DOI DDD degen disc dis c5-c6 12/15/2019 [facility] ALLOWED: M50.323 DOI Degeneration of intervertebral disc at C6-C7 level 12/15/2019 [facility] ALLOWED: S83.241A DOI tear med menisc knee right 12/15/2019 [facility] ALLOWED: S43.91XA DOI sprain shoulder/arm nos right shoulder 12/15/2019 [facility] ALLOWED: S83.91XA DOI Sprain of knee and leg, right, initial encounter 12/15/2019 [facility] ALLOWED: S13.4XXA DOI 05/27/2010 sprain of n connor 12/15/2019 [facility] ALLOWED: S33.5XXA DOI Sprain of lumbar region 12/15/2019 [facility] ALLOWED: M22.41 DOI 05/09 Chondromalacia of patella, right 12/15/2019 [facility] ALLOWED: M67.51 DOI 05/09 Plica syndrome of right knee 12/15/2019 [facility] ALLOWED: F32.9 DOI 05/27/2010 Depressive dis order 12/15/2019 [facility] ALLOWED: S23.3XXA DOI 05/27/2010 sprain thor acic region 12/15/2019 [facility] ALLOWED: S30.0XXA DOI 05/27/2010 back contus ion 12/15/2019 [facility] ALLOWED: M51.24 DOI 05/09 THORACIC DISC DISPLACEMENT T6-T7 12/15/2019 [facility] ALLOWED: M51.24 DOI 05/09 THORACIC DISC DISPLACEMENT T7-T8 12/15/2019 [facility] ALLOWED: M51.24 DOI 05/09 THORACIC DISC DISPLACEMENT T9-T10 12/15/2019 [facility] DISALLOWED: M47.817 DOI 05/27/2010 SUB AGG PE LUMBAR SPONDYLOSIS L4-L5 12/15/2019 [facility] DISMISSED: S82.141A DOOI 05/27/2010 CLOSED FX MEDIAL PORTION TIBIAL PLATEAU RT KNEE 12/15/2019 [facility] ALLOWED: M99.71 DOI 05/09 FORAMINAL STENOSIS OF CERVICAL SPINE C3-C7 12/15/2019 Closed fracture of medial portion of right tibia l plateau 06/18/2017 Social History Tobacco Use Types Packs/Day Years Used Date Smoking Tobacco: Every Day Cigarettes Smokeless Tobacco: Never Alcohol Use Standard Drinks/Week Comments No 0 (1 standard drink = 0.6 oz pur e alcohol) Sex and Gender Information Value Date Recorded Sex Assigned at Not on file Legal Sex Male 7:12 PM EDT Gender Identity Male 12/02/2019 8:26 AM EDT Sexual Orientation Not on file Last Filed Vital Signs Vital Sign Reading Time Taken Comments Blood Pressure 159/118 01/11/2020 2:12 PM EST Pulse 63 01/11/2020 2:12 PM EST Temperature - - Respiratory Rate - - Oxygen Saturation - - Inhaled Oxygen Concentration - - Weight 63.5 kg (140 lb) 02/10/2020 3:06 PM EST Height 175.3 cm (5' 9 ) 02/10/2020 3:06 PM EST Body Mass Index 20.67 02/10/2020 3:06 PM EST Plan of Treatment Health Maintenance Due Date Last Done Comments Hepatitis C Screening 1961 DTap,Tdap,and Td (1 - Tdap) 1972 Colonoscopy 2006 PSA YEARLY 11/18/2011 Pneumococcal 50+ (1 of 1 - PCV) 11/18/2011 Shingrix (#1) 11/18/2011 Influenza Vaccine (Season Ended) 2024 RSV Vaccine (60+ or ) (1 - 1-dose 75+ series) 2036 HPV Aged Out No longer eligi ble based on patient's age to complete this topic Meningococcal conjugate monica nt 4 (MCV4) Aged Out No longer eligible b ased on patient's age to complete this topic RSV Immunization (<20 months) Aged Out No longer eligible based on patient's age to complete this topic Insurance [address] [place] [id number] Care Teams Ur Coordinator Relationship Specialty Start Date End Date Nate Lester MD PCP - General Pain Medicine 05/19/17
--- OUTSIDE RECORDS SUMMARY | 2024-08-19 15:02 | XMS_ITS | Clinical Summary ---
Author Organization [facility] Address [address] [place] [address] Care Team Providers Care Perfume And Toilet Water Maker Name Role Phone None, None Primary Care Provider Unavailabl e Allergies No known active allergies Medications buprenorphine (BUTRANS) 15 mcg/hour Patch Weekly Apply to skin every 7 days. Active ibuprofen (MOTRIN) 600 mg tablet Take 600 mg by mouth every 6 hours as needed. Active sertraline (ZOLOFT) 100 mg tablet Take 100 mg by mouth daily. 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 03/30/2014 Social History Tobacco Use Types Packs/Day Years Used Date Smoking Tobacco: Every Day Cigarettes 1 30 Alcohol Use Standard Drinks/Week Comments No 0 (1 standard drink = 0.6 oz pur e alcohol) Sex and Gender Information Value Date Recorded Sex Assigned at Not on file Legal Sex Male 12:38 PM EST Gender Identity Not on file Sexual Orientation Not on file Last Filed Vital Signs Vital Sign Reading Time Taken Comments Blood Pressure 123/64 04/28/2014 9:09 AM EST Pulse 78 04/28/2014 9:09 AM EST Temperature 36.8 C (98.2 F) 04/28/2014 7:42 AM EST Respiratory Rate 14 04/28/2014 9:09 AM EST Oxygen Saturation 97% 04/28/2014 9:09 AM EST Inhaled Oxygen Concentration - - Weight 65.8 kg (145 lb) 04/28/2014 7:42 AM EST Height 175.3 cm (5' 9 ) 04/28/2014 7:42 AM EST Body Mass Index 21.41 04/28/2014 7:42 AM EST Plan of Treatment Not on file Insurance Care Teams Perfume And Toilet Water Maker Relationship Specialty Start Date End Date None, None [address] [place] [address] PCP - General 03/30/14
--- OUTSIDE RECORDS SUMMARY | 2024-08-19 15:02 | XMS_ITS | Clinical Summary ---
Author Organization [facility] Address [address] [place] [id number] Care Team Providers Care Oyster Worker Name Role Phone Nate Ansari MD Primary Care Provider [phone] Social History Tobacco Use Types Packs/Day Years Used Date Smoking Tobacco: Never Assessed Sex and Gender Information Value Date Recorded Sex Assigned at Not on file Legal Sex Male 8:25 PM EDT Gender Identity Not on file Sexual Orientation Not on file Plan of Treatment Health Maintenance Due Date Last Done Comments [facility]-Depression Screening 1961 [facility]-/Child/Adol SDOH Screenings 1961 [facility]- SDOH Screenings 11/18/1979 [facility]-Adult SDOH Screenings 11/18/1979 CT Colonography 2006 Colonoscopy 2006 FIT-DNA 2006 FIT 2006 FOBT 2006 Sigmoidoscopy 2006 [facility]-Colorectal Cancer Screening 2006 [facility]-Pneumococcal Vaccine: 50 + Years (1 of 1 - PCV) 11/18/2011 [facility]-Zoster Vaccines (1 of 2) 11/18/2011 [id number] Vaccine (1 - 20 24-25 season) 2023 [facility]-DTaP,Tdap,and Td Vaccine s (2 - Td or Tdap) 10/24/2024 10/24/2014 [facility]-Influenza Vaccine (Seaso n Ended) 2024 [facility]-RSV Vaccine: 60+ Years o r (1 - 1-dose 75+ series) 2036 HPV Vaccines Aged Out No longer eligi ble based on patient's age to complete this topic [facility]-HIB Vaccines Aged Out No longer e ligible based on patient's age to complete this topic [facility]-Hepatitis A Vaccines Aged Out No longer eligible based on patient's age to complete this topic [facility]-IPV Vaccines Aged Out No longer e ligible based on patient's age to complete this topic [facility]-Rotavirus Vaccines Aged Out No lo nger eligible based on patient's age to complete this topic Insurance [employer] Care Teams Oyster Worker Relationship Specialty Start Date End Date Nate Ansari MD [address] [facility] [place] [address] PCP - General 07/21/20
--- OUTSIDE RECORDS SUMMARY | 2024-08-19 15:02 | XMS_ITS | Referral Summary ---
Author Organization [facility] [address] [place] [address] [place] [address] Phone Care Team Providers Care Advertising Statistical Clerk Name Role Phone Nate Lester MD Primary Care Provider + [phone] Allergies No known active allergies Medications Buprenorphine (BUTRANS) 20 MCG/HR PTWK Apply topically. Active atorvastatin (LIPITOR) 10 MG TABS Take 10 mg by mouth daily. Active hydrocodone-acet aminophen (LORTAB) 7.5-325 MG TABS Take 1 tablet by mouth every 6 (six) hours as needed. Active Active Problems Problem Noted Date Diagnosed Date Status post cervical spinal fusion 02/10/2020 [facility] ALLOWED: M50.322 DOI DDD degen disc dis c5-c6 12/15/2019 [facility] ALLOWED: M50.323 DOI Degeneration of intervertebral disc at C6-C7 level 12/15/2019 [facility] ALLOWED: S83.241A DOI tear med menisc knee right 12/15/2019 [facility] ALLOWED: S43.91XA DOI sprain shoulder/arm nos right shoulder 12/15/2019 [facility] ALLOWED: S83.91XA DOI Sprain of knee and leg, right, initial encounter 12/15/2019 [facility] ALLOWED: S13.4XXA DOI 05/27/2010 sprain of n connor 12/15/2019 [facility] ALLOWED: S33.5XXA DOI Sprain of lumbar region 12/15/2019 [facility] ALLOWED: M22.41 DOI 05/09 Chondromalacia of patella, right 12/15/2019 [facility] ALLOWED: M67.51 DOI 05/09 Plica syndrome of right knee 12/15/2019 [facility] ALLOWED: F32.9 DOI 05/27/2010 Depressive dis order 12/15/2019 [facility] ALLOWED: S23.3XXA DOI 05/27/2010 sprain thor acic region 12/15/2019 [facility] ALLOWED: S30.0XXA DOI 05/27/2010 back contus ion 12/15/2019 [facility] ALLOWED: M51.24 DOI 05/09 THORACIC DISC DISPLACEMENT T6-T7 12/15/2019 [facility] ALLOWED: M51.24 DOI 05/09 THORACIC DISC DISPLACEMENT T7-T8 12/15/2019 [facility] ALLOWED: M51.24 DOI 05/09 THORACIC DISC DISPLACEMENT T9-T10 12/15/2019 [facility] DISALLOWED: M47.817 DOI 05/27/2010 SUB AGG PE LUMBAR SPONDYLOSIS L4-L5 12/15/2019 [facility] DISMISSED: S82.141A DOOI 05/27/2010 CLOSED FX MEDIAL PORTION TIBIAL PLATEAU RT KNEE 12/15/2019 [facility] ALLOWED: M99.71 DOI 05/09 FORAMINAL STENOSIS OF [...] 02/10/2020 3:06 PM EST Plan of Treatment Not on file Insurance [facility] PL[facility] Care Teams Advertising Statistical Clerk Relationship Specialty Start Date End Date Nate Lester MD PCP - General Pain Medicine 05/19/17
== END 2024-08-19 23:59 | disposition home or self-care (01) ==
LOC: RAD 14:12
PROVIDERS: PCP Nurse Practitioner Family; Visit Provider Nurse Practitioner Family
DX: M51.360 Other intervertebral disc degeneration, lumbar region with discogenic back pain only (principal); M48.061 Spinal stenosis, lumbar region without neurogenic claudication; M51.16 Intervertebral disc disorders with radiculopathy, lumbar region
CPT/HCPCS: 72148

== ENCOUNTER 2024-08-26 13:16 | Outpatient (POV) | payer OTHER, SELFPAY ==
--- OUTSIDE RECORDS SUMMARY | 2020-02-10 12:14 | XMS_ITS | Continuity of Care Document ---
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 Name Role Phone No Information Unavailable Unavailable Allergies, Adverse Reactions, Alerts Substance Reaction Status Criticality No Known Drug Allergies Active No I nformation Medications Medication Instructions Dosage Effective Dates (start - stop) Status Comments Flexeril 10 mg Tab take 1 tablet (10MG) by ORAL route every 8 hours prn spasm 10 MG - Active Atlantic 5 mg-325 mg Tab take 1 tablet by oral route every 4 - 6 hours as needed for pain 1 tablet - Active Mobic 15 mg Tab take 1 tablet (15MG) by ORAL route every day - Active Ultram 50 mg Tab take 1 tablet (50MG) by oral route every 6 hours as needed - Active Percocet 5 mg-325 mg Tab take 1 tablet by ORAL route every 4 - 6 hours as needed 1.00 tablet - Active Colace 100 mg Cap take 1 capsule (100MG) by ORAL route 2 times every day 100 MG - Active Vicodin 5 mg-500 mg Tab take 1 tablet by ORAL route every 4 - 6 hours as needed for pain - Active Bactroban Nasal 2 % Ointment apply by topical route 2 times every day one-half of the ointment from the tube into one nostril and the other half into the other nostril in the morning and evening - Active prednisone 20 mg Tab take (0.5MG/KG) by ORAL route every day take PO 3x3d; 2x2d; 1x1d until gone - Active Naproxen 375 mg Tab take 1 tablet (375MG) by ORAL route 2 times every day with food 375 MG - Active Vicodin 5 mg-500 mg Tab take 1 by Oral route 3 times every day as needed for pain - Active Keflex 500 mg Cap take 1 capsule (500MG) by ORAL route every 6 hours - Active Promethazine 25 mg Tab take 1 tablet (25MG) by ORAL route every 6 hours as needed for nausea 25 MG - Active Vicodin 5 mg-500 mg Tab take 1 by Oral route 2 times every day as needed for pain - Active Procedures Procedure Date Office/outpatient visit,est, mod 2012 Medical Records Copies Medical Records Copies MUSC TEST DONE W/N TEST COMP Nrv conductn motor, ea nrv w/o Fwav Nerve conductn motor ea nrv sensory Office/outpatient visit,est, mod 2011 X-ray exam of neck spine2-3 views Office/outpatient visit,est, mod 2011 X-ray exam of neck spine2-3 views Office/outpatient visit,est, mod 2011 X-ray exam of neck spine2-3 views INJ PARAVERT F JNT C/T 1 LEV Office/outpatient visit,est, mod 2011 MRI of Neck Spine W/o Dye Postop followup visit X-ray exam of neck spine2-3 views Postop followup visit X-ray exam of neck spine2-3 views Postop followup visit X-ray exam of neck spine2-3 views NECK SPINE FUSE&REMOVE ADDL Insert spine fix dev, ant, 2-3 seg ADDL NECK SPINE FUSION Allograft, spine surg, structural X-ray exam of neck spine2-3 views PA NECK SPINE FUSE&REMOVE ADDL 11 PA Insert Spine Fix Dev, Ant 2-3 Seg Feb PA ADDL NECK SPINE FUSION Office/outpatient visit,est, mod 2010 X-ray exam of neck spine, 4+ views Office/outpatient visit,est, mod 2010 Office/outpatient visit,est, mod 2010 Muscle test, one limb Nrv conductn motor, ea nrv w/o Fwav Nerve conductn motor ea nrv sensory Inject foramin, cerv/thor, single Office/outpatient visit,est, mod 2010 Postop followup visit Office/outpatient visit,est, mod 2010 Drain/inject major jointor bursa 2010 Methylprednisolone 40 MG inj Marcaine Postop followup visit MRI Joint Upper Extrem W/o Contrast MRI of Neck Spine W/o Dye Office/outpatient visit,est, mod 2010 Postop followup visit Postop followup visit Physical therapy evaluation Physical Tx excercises, ea 15 min Postop followup visit PA Knee Arthscpy Synovectomy Major PA Knee Arthscpy Mnsctmy Med Or Lat PA Knee Arthscpy Debridement Knee arthroscopy/synovectomy, major Knee arthscpy mnsctmy medial or lat Knee arthroscopy/debridement Office/outpatient visit,est, mod 2010 Office/outpatient visit,est, mod 2010 MRI lwr extrm joint, w/ocntrst 11 Office/outpatient visit,new, mod 2010 Advance Directives Directive Yes / No Effective Date File Name No Information Encounters Encounter Description Practice Location Reason(s) For Visit Diagnoses Date Provider Providers Copied on Encounter [facility], [address] [facility], [place], [address], [place] tel:[phone] No Information Dec-0 3 0 No Information Office/outpa tient visit,est, mod [facility], [address] [place], [place], [facility], tel:[phone] [facility] cervical spine surgery (chief complaint) No Information 3 Rodway Leroy. [address] [place], [place], [address] [place] [address], [place]. tel:[phone] [facility], [facility] [address] [place], [facility], [place] tel:[phone] [facility] No Information 3 Rodway Leroy. [address] [place], [place], [address] [place] [address], [place]. tel:[phone] [facility], [facility] [address] [place], [facility], [place] tel:[phone] [facility] No Information 3 Lata Peter. [address] [place], [place], [address] [place] [address], [place]. tel:[phone] [facility], [facility] [address] [place], [facility], [place] tel:[phone] [facility] No Information 2 Darrellcornelius David. [address] [facility], [address] [place], [address] [place] [address], [place]. tel:[phone] Office/outpa tient visit,est, mod [facility], [facility] [address] [place], [facility], [place] tel:[phone] [facility] cervical spine surgery (chief complaint) No Information 2 Rodway Leroy. [address] [place], [place], [address] [place] [address], [place]. tel:[phone] Office/outpa tient visit,est, mod [facility], [facility] [address] [place], [facility], [place] tel:[phone] [facility] cervical spine surgery (chief complaint) cervical spine surgery (chief complaint) No Information 2 Rodway Leroy. [address] [place], [place], [address] [place] [address], [place]. tel:[phone] [facility], [facility] [address] [place], [facility], tel:[phone] 700 [facility] No Information 2 Rodway Leroy. [address] [place], [place], [address] [place] [address], [place]. tel:[phone] Office/outpa tient visit,est, mod [facility], [address] [place] [address], [facility], tel:[phone] [facility] cervical spine surgery (chief complaint) No Information 2 Rodway Leroy. [address] [place], [address] [place] [address], [place]. tel:[phone] [facility], [address] [place] [address], [facility], [place] tel:[phone] 700 [facility] No Information 2 Padma Hernandez. [address] [place], [place], [address] [place] [address], [place]. tel:[phone] Referring Provider: Leroy Holman, [address] [place], [address] . tel:[phone] Office/outpa tient visit,est, mod [facility], [address] [place] [address], [facility], [place] tel:[phone] [facility] cervical spine surgery (chief complaint) No Information 2 Rodway Leroy. [address] [place], [address] [place] [address], [place]. tel:[phone] [facility], [address] [place] [address], [facility], [place] tel:[phone] 700 [facility] No Information Mar-3 0-201 2 Rodway Leroy. [address] [place], [place], [id number], [place]. tel:[phone] Referring Provider: Leroy Holman, [address] [place], [address] . tel:[phone] [facility], [facility] [address] [place], [facility], [place] tel:[phone] [facility] cervical spine surgery (chief complaint) No Information 1-201 2 Rodway Leroy. [address] [place], [place], [id number], [place]. tel:[phone] [facility], [address] [place] [address], [facility], [place] tel:[phone] 700 [facility] No Information 0 5-201 2 Rodway Leroy. [address] [place], [address] [place] [address], [place]. tel:[phone] [facility], [facility] [address] [place], [facility], [place] tel:[phone] [facility] cervical spine surgery (chief complaint) No Information 8-201 2 Rodway Leroy. [address] [place], [place], [id number], [place]. tel:[phone] [facility], [address] [place] [address], [facility], [place] tel:[phone] [facility] cervical spine surgery (chief complaint) No Information 9-201 2 Rodway Leroy. [address] [place], [place], [id number], [place]. tel:[phone] [facility], [facility] [address] [place], [facility], [place] tel:[phone] 700 [facility] No Information 201 1 Rodway Leroy. [address] [place], [place], [id number], [place]. tel:[phone] [facility], [address] [place], [address], [place] tel:[phone] [facility] No Information 1 Holden Mark. [address], [place], [place], [id number], [place]. tel:[phone] Office/outpa tient visit,est, mod [facility], [address] [place], [facility], [place] tel:[phone] [facility] (chief complaint) No Information 1 Rodway Leroy. [address] [place], [place], [id number], [place]. tel:[phone] [facility], [facility] [address] [place], [facility], [place] tel:[phone] [facility] No Information 1 Rodway Leroy. [address] [place], [place], [id number], [place]. tel:[phone] Office/outpa tient visit,est, mod [facility], [facility] [address] [place], [facility], [place] tel:[phone] [facility] cervical spine pain (chief complaint) No Information 1 Rodway Leroy. [address], [place], [id number], [place]. tel:[phone] Office/outpa tient visit,est, mod [facility], [facility] [address] [place], [facility], [place] tel:[phone] [facility] cervical spine pain (chief complaint) No Information 1 Rodway Leroy. [address] [place], [place], [id number], [place]. tel:[phone] [facility], [facility] [address] [place], [facility], [place] tel:[phone] [facility] No Information 1 Padma David. [address] [place], [place], [id number], [place]. tel:[phone] [facility], [facility] [address] [place], [facility], tel:[phone] 700 [facility] No Information 3- 1 Padma Hernandez. [address] [place], [place], [id number], [place]. tel:[phone] Referring Provider: Leroy Holman, [address] [place], [address] . tel:[phone] Office/outpa tient visit,est, mod [facility], [address] [place] [address], [facility], tel:[phone] [facility] cervical spine pain (chief complaint) No Information 0- 1 Gian Stevenn. [address] [place], [address] [place] [address], [place]. tel:[phone] [facility], [address] [place] [address], [facility], [place] tel:[phone] [facility] No Information Sep-2 1 Lata Lux. [address] [place], [place], [address] [place] [address], [place]. tel:[phone] Office/outpa tient visit,est, mod [facility], [address] [place] [address], [facility], tel:[phone] [facility] cervical spine pain (chief complaint) No Information Sep-2 1 Gian Leroy. [address] [place], [address] [place] [address], [place]. tel:[phone] [facility], [address] [place] [address], [facility], [place] tel:[phone] 700 [facility] No Information Sep-0 6- 1 No Information [facility], [address] [place] [address], [facility], tel:[phone] 700 [facility] No Information Nov-0 - 1 Lata Peter. [address] [place], [place], [id number], [place]. tel:[phone] [facility], [facility] [address] [place], [facility], tel:[phone] [facility] No Information 1 No Information [facility], [facility] [address] [place], [facility], [place] tel:[phone] [facility] No Information Oct- 1 No Information [facility] [address] [place], [place], [facility], [place] tel:[phone] [facility] No Information 1 Reji Waggoner. [address], [place], [place], [id number], [place]. tel:[phone] Office/outpa tient visit,est, mod [facility], [facility] [address] [place], [facility], [place] tel:[phone] [facility] No Information 0 1 No Information [facility] [address] [place], [facility], [place] tel:[phone] [facility] No Information 0 1 Lata Peter. [address] [place], [place], [id number], [place]. tel:[phone] [facility], [facility] [place], [facility], [place] tel:[phone] [facility] No Information 1 Lata Peter. [address] [place], [place], [id number], [place]. tel:[phone] [facility] [address] [place], [facility], tel:[phone] [facility] No Information 1 Kasandra Castanon. . Referring Provider: Jose J Go, [address] [place], [address] . tel:[phone] [facility], [facility] [place], [facility], [place] tel:[phone] [facility] No Information 1 Lata Lux. [address] [place], [place], [id number], [place]. tel:[phone] [facility], [facility] [place], [facility], [place] tel:[phone] [facility] No Information 1 Asya Walden. [address] [place], [place], [id number], [place]. tel:[phone] [facility], [address] [place] [address], [facility], [place] tel:[phone] [facility] No Information 1 Lata Lux. [address] [place], [address] [place] [address], [place]. tel:[phone] [facility], [facility] [place], [facility], [place] tel:[phone] [facility] No Information 1 Lata Lux. [address] [place], [address] [place] [address], [place]. tel:[phone] Office/outpa tient visit,est, mod [facility], [facility] [place], [facility], [place] tel:[phone] [facility] No Information 1 Lata Lux. [address] [place], [place], [address] [place] [address], [place]. tel:[phone] Office/outpa tient visit,est, mod [facility], [facility] [address] [place], [facility], [place] tel:[phone] 700 [facility] No Information No Information [facility], [address] [place], [address], [place] tel:[phone] [facility] No Information No Information Office/outpa tient visit,[facility], [address] [place], [address], [place] tel:[phone] [facility] cervical spine pain (chief complaint) thoracic spine pain (chief complaint) knee pain (chief complaint) No Information May- No Information Family History Family Member Type Diagnosis Age At Onset Father Problem (finding) Cancer - (Cause Of Deat h) Mother Problem (finding) Heart disease Mother Problem (finding) hypertension Mother Problem (finding) tuberculosis Father Problem (finding) hypertension Father Problem (finding) Mother Problem (finding) Cancer - Mother Problem (finding) hypertension Father Problem (finding) Cancer - Mother Problem (finding) Heart disease Mother Problem (finding) malignant neop lasm of breast in first degree relative Mother Problem (finding) tuberculosis Payers Payer name Insurance type Covered alliance party ID Authoriza tion(s) No Information Social History Type Description Quantity Date Captured Comments Sex Male Smoking Status No Information Chief Complaint And Reason For Visit No Information Reason For Referral Reason For Referral No Information History Of Present Illness Encounter Date Complaint History Of Prese nt Illness No Information Functional Status Date Functional Assessmen t No Information Instructions Date Instruction Additional Infor mation No Information Assessments Type Assessment Date No Information Patient Care Teams Name Effective Dates (start - stop) Status Members No Information
--- OUTSIDE RECORDS SUMMARY | 2024-08-26 13:19 | XMS_ITS | Clinical Summary ---
Author Organization [facility] Address [address] [place] [id number] Care Team Providers Care Mac Operator Name Role Phone Nate Ansari MD Primary Care Provider Social History Tobacco Use Types Packs/Day Years [...] 11/18/2011 [facility]-Zoster Vaccines (1 of 2) 11/18/2011 [id number] Vaccine (1 - 20 24-25 season) 2023 [...] Insurance [employer] Care Teams Mac Operator Relationship Specialty Start Date End Date Nate Ansari MD [address] [facility] [place] [address] PCP - General 07/21/20
--- OUTSIDE RECORDS SUMMARY | 2024-08-26 13:19 | XMS_ITS | Clinical Summary ---
Author Organization [facility] Address [address] [place] [address] [place] [address] Phone Care Team Providers Care Laundry Machine Tender Name Role Phone Nate Lester MD Primary Care Provider + [phone] Allergies No known active allergies Medications Buprenorphine (BUTRANS) 20 MCG/HR PTWK Apply topically. Active atorvastatin (LIPITOR) 10 MG TABS Take 10 mg by mouth daily. Active hydrocodone-acet aminophen (LORTAB) 7.5-325 MG TABS Take 1 tablet by mouth every 6 (six) hours as needed. Active Active Problems Problem Noted Date Diagnosed Date Status post cervical spinal fusion 02/10/2020 [facility] ALLOWED: M50.322 DOI DDD degen disc dis c5-c6 12/15/2019 [facility] ALLOWED: M50.323 DOI Degeneration of intervertebral disc at C6-C7 level 12/15/2019 [facility] ALLOWED: S83.241A DOI tear med menisc knee right 12/15/2019 [facility] ALLOWED: S43.91XA DOI sprain shoulder/arm nos right shoulder 12/15/2019 [facility] ALLOWED: S83.91XA DOI Sprain of knee and leg, right, initial encounter 12/15/2019 [facility] ALLOWED: S13.4XXA DOI 05/27/2010 sprain of n connor 12/15/2019 [facility] ALLOWED: S33.5XXA DOI Sprain of lumbar region 12/15/2019 [facility] ALLOWED: M22.41 DOI 05/09 Chondromalacia of patella, right 12/15/2019 [facility] ALLOWED: M67.51 DOI 05/09 Plica syndrome of right knee 12/15/2019 [facility] ALLOWED: F32.9 DOI 05/27/2010 Depressive dis order 12/15/2019 [facility] ALLOWED: S23.3XXA DOI 05/27/2010 sprain thor acic region 12/15/2019 [facility] ALLOWED: S30.0XXA DOI 05/27/2010 back contus ion 12/15/2019 [facility] ALLOWED: M51.24 DOI 05/09 THORACIC DISC DISPLACEMENT T6-T7 12/15/2019 [facility] ALLOWED: M51.24 DOI 05/09 THORACIC DISC DISPLACEMENT T7-T8 12/15/2019 [facility] ALLOWED: M51.24 DOI 05/09 THORACIC DISC DISPLACEMENT T9-T10 12/15/2019 [facility] DISALLOWED: M47.817 DOI 05/27/2010 SUB AGG PE LUMBAR SPONDYLOSIS L4-L5 12/15/2019 [facility] DISMISSED: S82.141A DOOI 05/27/2010 CLOSED FX MEDIAL PORTION TIBIAL PLATEAU RT KNEE 12/15/2019 [facility] ALLOWED: M99.71 DOI 05/09 FORAMINAL STENOSIS OF [...] patient's age to complete this topic Insurance [address] [place] [id number] Care Teams Laundry Machine Tender Relationship Specialty Start Date End Date Nate Lester MD PCP - General Pain Medicine 05/19/17
--- OUTSIDE RECORDS SUMMARY | 2024-08-26 13:19 | XMS_ITS | Clinical Summary ---
Author Organization [facility] Address [address] [place], [place] [id number] Phone Care Team Providers Care Casino Host Name Role Phone Outside, Provider Unavailable [phone] Conditions or Problems No information available. Medications No information available. Medications Administered No information available. Allergies, Adverse Reactions, Alerts No information available. Results No information available. Plan of Care No information available. Procedures No information available. Vital Signs No information available. Immunizations No information available. Advance Directives No information available.
--- OUTSIDE RECORDS SUMMARY | 2024-08-26 13:19 | XMS_ITS | Clinical Summary ---
Author Organization [facility] Address [address] [place] [address] Care Team Providers Care Shoe Fitter Name Role Phone None, None Primary Care [...] Treatment Not on file Insurance Care Teams Shoe Fitter Relationship Specialty Start Date End Date None, None [address] [place] [address] PCP - General 03/30/14
--- OUTSIDE RECORDS SUMMARY | 2024-08-26 13:19 | XMS_ITS | Data Portability ---
Author Organization [employer] [place] - [place] Address [address] [place] [address] Assessment Encounter Date Assessment Date Assessment LastModified by Organization Details LastModified Time 04/15/2023 04/15/2023 Patient presented for medication refill. Patient tolerating medication well at current dose without adverse effects. Refilled as below. Discussed plan with patient, who expressed understanding . Follow up as noted below. [place] [id number] Not available 04/15/2023 10:34:34 Plan of Treatment Reminders Order Date Submit Date Provider Last Modified By Organization Details Last Modified Time Details Appointments None recorded. Lab rapid flu (A+B) [address], [address], 5 11:31:19 rapid SARS CoV 2 Ag, QL, [place], upper respiratory specimen [address], [address], 5 11:31:19 lipid panel, serum 2023 024 [facility], [address] [place] [address], [address], 4 06:12:31 CMP, serum or plasma 2023 024 [facility], [address] [place] [address], [address], 4 06:12:31 CBC w/ auto diff 2023 024 [facility] [address] [place], [address], 4 06:12:30 HbA1c (hemoglobin A1c), blood 2023 024 [facility] [address] [place], [address], 4 06:12:32 noninvasive colorectal cancer DNA + occult blood screening, QL, stool 2023 [facility]24 [email or web address] [address], [address], [place], [address], 5 08:54:10 HbA1c (hemoglobin A1c), blood 2023 024 [facility], [address], [place], [address], 4 09:50:47 PSA, serum or plasma 2023 024 [facility], [address], [place], [address], 4 09:50:46 lipid panel, serum 2023 024 [facility], [address], [place], [address], 4 09:50:45 CBC w/ auto diff 2023 024 [facility], [address], [place], [address], 4 09:50:46 CMP, serum or plasma 2023 024 [facility], [address], [place], [address], 4 09:50:45 TSH, serum or plasma 2023 024 [facility], [address], [place], [address], 4 09:50:47 lipid panel, serum 2022 023 [facility], [address], [place], [address], 3 04:39:05 CMP, serum or plasma 2022 023 [facility], [address], [place], [address], 3 04:39:06 CBC w/ auto diff 2022 023 [facility], [address], [place], [address], 3 04:39:06 TSH, serum or plasma 2022 023 [facility], [address], [place], [address], 3 04:39:08 vitamin B12, serum 2022 023 [facility], [address], [place], [address], 3 04:39:07 vitamin D, 25-hydroxy, total, serum 2022 023 [facility], [address], [place], [address], 3 04:39:09 PSA, serum or plasma 2022 023 [facility], [address], [place], [address], 3 04:39:08 Referral None recorded. Procedures colonoscopy screening (PROC) - first available appt please 2022 023 vicente Yeboah MD, [address] , [facility], [place], [address], 3 10:47:52 Surgeries None recorded. Imaging LDCT, chest, for lung cancer screening - Not Required; Procedure codes: [id number] Reference #: [id number] 48Resolutio n: Completed on 12/29/2023 at 11:22 am. Call ref #[id number]. [address], [place], [address], 4 11:10:57 XR, lumbar spine 2022 023 [facility] Not available 3 15:34:30 Medication Orders albuterol sulfate HFA 90 mcg/actuati on aerosol inhaler 2024 025 [facility], [address] [place] [address], [address], 5 11:53:33 prednisone 20 mg tablet 2024 025 [facility], [address] [place] [address], [address], 5 11:53:34 Crestor 5 mg tablet 2023 024 [facility], [address] [place] [address], [address], 4 14:00:50 meloxicam 15 mg tablet 2023 024 [facility], [address] [place] [address], [address], 5 13:50:51 Daily Multi-Vitam in tablet 2023 024 [facility], [address] [place] [address], [address], 5 15:13:41 methocarbam ol 500 mg tablet 2023 024 [facility], [address] [place] [address], [address], 4 16:59:00 meloxicam 15 mg tablet 2023 024 [facility], [address] [place] [address], [address], 4 11:08:48 methocarbam ol 500 mg tablet 2023 024 [facility], [address] [place] [address], [address], 4 15:16:10 Daily Multi-Vitam in tablet 2023 024 [facility], [address] [place] [address], [address], 4 15:16:11 meloxicam 15 mg tablet 2023 024 [facility], [address] [place] [address], [address], 4 12:53:46 methocarbam ol 500 mg tablet 2023 024 [facility], [address] [place] [address], [address], 4 12:24:19 rosuvastati n 40 mg tablet 2023 024 [facility], [address] [place] [address], [address], 4 11:29:04 Daily Multi-Vitam in tablet 2023 024 [facility], [address] [place] [address], [address], 4 17:42:14 meloxicam 15 mg tablet 2022 023 [facility], [address] [place] [address], [address], 3 13:02:47 rosuvastati n 40 mg tablet 2022 023 [email or web address], [address] [place] [address], [address], 4 10:24:17 methocarbam ol 500 mg tablet 2022 023 [facility], [address] [place] [address], [address], 4 15:26:06 Patient TargetsNo targets recorded. Patient Instructions Encounter Date Encounter Id Patient Instructions Last Modified By Organization Details Last Modified Time 12/26/2023 [id number] statins: care instructions [id number] Not available 12/26/2023 17:00:20 Reason for Referral None Reported. Results Created Date Observation Date Name Description Value Unit Range Abnormal Flag Note LastModifiedBy Organization Detail LastModifiedTime 01/08/2001/08/2023 LIPID PANEL , STAND RISSA cholesterol, total 224 mg/dL <200 high Not Available [facility] [address] [place], [address], 01/08/2023 06:16:19 01/08/2001/08/2023 LIPID PANEL , STAND RISSA HDL cholesterol 61 mg/dL > or = 40 normal Not Available [facility] [address] [place], [address], 01/08/2023 06:16:19 01/08/20 23 01/08/2023 LIPID PANEL , STAND RISSA triglyceride s 208 mg/dL <150 high If a non-f astin g speci men was colle cted, consi bar repea t trigl yceri de testi ng on a fasti ng speci men if clini reina indic ated. Arthur gagnon et al. J. of Clin. Lipid ol. 2015; 9:129 -169. Not Available [facility] [address], [place], [address], 01/08/2023 06:16:19 01/08/2001/08/2023 LIPID PANEL , STAND RISSA LDL-choleste rol 128 mg/dL _(toribio c) high Refer ence range : <100 Juan able range <100 mg/dL for prima ry preve ntion ; <70 mg/dL for patie nts with CHD or diabe tic patie nts with > or = 2 CHD risk facto rs. LDL-C is now calcu lated using the Guillermina n-Hop kins calcu latio n, which is a valid ated novel metho d provi ding felicita r accur acy than the Fried ruthy equat ion in the estim ation of LDL-C . Guillermina larios SS et al. CLEMENTINA. 2013; 310(1 9): 2061- 2068 (http ://ed ucati on.InteliCloud dilipDesk. com/f aq/FA Q164) Not Available [facility] [address], [place], [address], 01/08/2023 06:16:19 01/08/2001/08/2023 LIPID PANEL , STAND RISSA chol/HDLC ratio 3.7 (calc ) <5.0 normal Not Available [facility] [address], [place], [address], 01/08/2023 06:16:19 01/08/20 23 01/08/2023 LIPID PANEL , STAND RISSA non HDL cholesterol 163 mg/dL _(toribio c) <130 high For patie nts with diabe maria esther plus 1 major ASCVD risk facto r, treat ing to a non-H DL-C goal of <100 mg/dL (LDL- C of <70 mg/dL ) is maricruz fine optio n. Not Available [facility] [address] [place], [address], 01/08/2023 06:16:19 01/08/2001/08/2023 COMPR EHENS PELON METAB OLIC PANEL glucose 96 mg/dL 65-139 normal Non-f astin g refer ence inter nani Not Available [facility] [address] [place], [address], 01/08/2023 06:16:20 01/08/20 23 01/08/2023 COMPR EHENS PELON METAB OLIC PANEL urea nitrogen (BUN) 23 mg/dL 7-25 normal Not Available [facility] [address] [place], [address], 01/08/2023 06:16:20 01/08/2001/08/2023 COMPR EHENS PELON METAB OLIC PANEL creatinine 0.94 mg/dL 0.70-1 .35 normal Not Available [facility] [address] [place], [address], 01/08/2023 06:16:20 01/08/20 23 01/08/2023 COMPR EHENS PELON METAB OLIC PANEL eGFR 92 mL/mi n/1.7 3m2 > or = 60 normal Not Available [facility] [address] [place], [address], 01/08/2023 06:16:20 01/08/20 23 01/08/2023 COMPR EHENS PELON METAB OLIC PANEL BUN/creatini ne ratio SEE NOTE: (calc ) 6-22 Not Repor tg: BUN and Creat inine are withi n refer ence range . Not Available [facility] [address] [facility] [place], [address], 01/08/2023 06:16:20 01/08/20 23 01/08/2023 COMPR EHENS PELON METAB OLIC PANEL sodium 143 mmol/ L 135-14 6 normal Not Available [facility] [address] [place], [address], 01/08/2023 06:16:20 01/08/20 23 01/08/2023 COMPR EHENS PELON METAB OLIC PANEL potassium 4.9 mmol/ L 3.5-5. 3 normal Not Available [facility] [address] [place], [address], 01/08/2023 06:16:20 01/08/20 23 01/08/2023 COMPR EHENS PELON METAB OLIC PANEL chloride 104 mmol/ L 98-110 normal Not Available [facility] [address] [facility] [place], [address], 01/08/2023 06:16:20 01/08/20 23 01/08/2023 COMPR EHENS PELON METAB OLIC PANEL carbon dioxide 31 mmol/ L 20-32 normal Not Available [facility] [address] [place], [address], 01/08/2023 06:16:20 01/08/20 23 01/08/2023 COMPR EHENS PELON METAB OLIC PANEL calcium 10.2 mg/dL 8.6-10 .3 normal Not Available [facility] [address] [place], [address], 01/08/2023 06:16:20 01/08/20 23 01/08/2023 COMPR EHENS PELON METAB OLIC PANEL protein, total 6.9 g/dL 6.1-8. 1 normal Not Available [facility] [address] [facility] [place], [address], 01/08/2023 06:16:20 01/08/20 23 01/08/2023 COMPR EHENS PELON METAB OLIC PANEL albumin 4.8 g/dL 3.6-5. 1 normal Not Available [facility] [facility] [address] [facility] [place], [address], 01/08/2023 06:16:20 01/08/20 23 01/08/2023 COMPR EHENS PELON METAB OLIC PANEL globulin 2.1 g/dL_ (calc ) 1.9-3. 7 normal Not Available [facility] [address] [facility] [place], [address], 01/08/2023 06:16:20 01/08/20 23 01/08/2023 COMPR EHENS PELON METAB OLIC PANEL albumin/glob ulin ratio 2.3 (calc ) 1.0-2. 5 normal Not Available [facility] [address] [facility] [place], [address], 01/08/2023 06:16:20 01/08/20 23 01/08/2023 COMPR EHENS PELON METAB OLIC PANEL bilirubin, total 0.5 mg/dL 0.2-1. 2 normal Not Available [facility] [employer] [employer] [facility] [address] [facility] [place], [address], 01/08/2023 06:16:20 01/08/20 23 01/08/2023 COMPR EHENS PELON METAB OLIC PANEL alkaline phosphatase 62 U/L 35-144 normal Not Available [facility] [employer] [facility] [address] [facility] [place], [address], 01/08/2023 06:16:20 01/08/20 23 01/08/2023 COMPR EHENS PELON METAB OLIC PANEL AST 19 U/L 10-35 normal Not Available [facility] [employer] [facility] [address] [facility] [place], [address], 01/08/2023 06:16:20 01/08/20 23 01/08/2023 COMPR EHENS PELON METAB OLIC PANEL ALT 16 U/L 9-46 normal Not Available [facility] [address] [place], [address], 01/08/2023 06:16:20 01/08/20 23 01/08/2023 CBC (INCL UDES DIFF/ PLT) white blood cell count 8.8 thous and/u L 3.8-10 .8 normal Not Available [facility] [address] [place], [address], 01/08/2023 04:39:06 01/08/2001/08/2023 CBC (INCL UDES DIFF/ PLT) red blood cell count 4.77 marivel on/uL 4.20-5 .80 normal Not Available [facility] [address] [place], [address], 01/08/2023 04:39:06 01/08/2001/08/2023 CBC (INCL UDES DIFF/ PLT) hemoglobin 14.9 g/dL 13.2-1 7.1 normal Not Available [facility] [address] [place], [address], 01/08/2023 04:39:06 01/08/2001/08/2023 CBC (INCL UDES DIFF/ PLT) hematocrit 43.4 % 38.5-5 0.0 normal Not Available [facility] [address] [place], [address], 01/08/2023 04:39:06 01/08/2001/08/2023 CBC (INCL UDES DIFF/ PLT) MCV 91.0 fL 80.0-1 00.0 normal Not Available [facility] [address], [place], [address], 01/08/2023 04:39:06 01/08/2001/08/2023 CBC (INCL UDES DIFF/ PLT) MCH 31.2 pg 27.0-3 3.0 normal Not Available [facility] [address] [facility], [place], [address], 01/08/2023 04:39:06 01/08/2001/08/2023 CBC (INCL UDES DIFF/ PLT) MCHC 34.3 g/dL 32.0-3 6.0 normal Not Available [facility] [address] [facility], [place], [address], 01/08/2023 04:39:06 01/08/2001/08/2023 CBC (INCL UDES DIFF/ PLT) RDW 12.5 % 11.0-1 5.0 normal Not Available [facility] [address] [facility], [place], [address], 01/08/2023 04:39:06 01/08/2001/08/2023 CBC (INCL UDES DIFF/ PLT) platelet count 274 thous and/u L 140-40 0 normal Not Available [facility] [address] [facility], [place], [address], 01/08/2023 04:39:06 01/08/2001/08/2023 CBC (INCL UDES DIFF/ PLT) MPV 10.9 fL 7.5-12 .5 normal Not Available [facility] [address] [facility], [place], [address], 01/08/2023 04:39:06 01/08/2001/08/2023 CBC (INCL UDES DIFF/ PLT) absolute neutrophils 5306 cells /uL 1500-7 800 normal Not Available [facility] [address] [facility], [place], [address], 01/08/2023 04:39:06 01/08/2001/08/2023 CBC (INCL UDES DIFF/ PLT) absolute lymphocytes 2306 cells /uL 850-39 00 normal Not Available [facility] [address], [place], [address], 01/08/2023 04:39:06 01/08/2001/08/2023 CBC (INCL UDES DIFF/ PLT) absolute monocytes 704 cells /uL 200-95 0 normal Not Available [facility] [address], [place], [address], 01/08/2023 04:39:06 01/08/2001/08/2023 CBC (INCL UDES DIFF/ PLT) absolute eosinophils 422 cells /uL 15-500 normal Not Available [facility] [address], [place], [address], 01/08/2023 04:39:06 01/08/2001/08/2023 CBC (INCL UDES DIFF/ PLT) absolute basophils 62 cells /uL 0-200 normal Not Available [facility] [address], [place], [address], 01/08/2023 04:39:06 01/08/2001/08/2023 CBC (INCL UDES DIFF/ PLT) neutrophils 60.3 % normal Not Available [facility] [address], [place], [address], 01/08/2023 04:39:06 01/08/2001/08/2023 CBC (INCL UDES DIFF/ PLT) lymphocytes 26.2 % normal Not Available [facility] [address], [place], [address], 01/08/2023 04:39:06 01/08/20 23 01/08/2023 CBC (INCL UDES DIFF/ PLT) monocytes 8.0 % normal Not Available [facility] [address] [place], [address], 01/08/2023 04:39:06 01/08/20 23 01/08/2023 CBC (INCL UDES DIFF/ PLT) eosinophils 4.8 % normal Not Available [facility] [address] [place], [address], 01/08/2023 04:39:06 01/08/20 23 01/08/2023 CBC (INCL UDES DIFF/ PLT) basophils 0.7 % normal Not Available [facility] [address] [place], [address], 01/08/2023 04:39:06 01/08/20 23 01/08/2023 VITAM IN B12 vitamin B12 617 pg/mL 200-11 00 normal Not Available [facility] [address] [place], [address], 01/08/2023 07:02:17 01/08/2001/08/2023 PSA, TOTAL PSA, total 0.99 NG/mL < or = 4.00 normal The total PSA value from this assay syste m is stand ardiz ed again st the WHO stand rissa. The test resul t will be appro ximat kei 20% lower when myles red to the equim olar- stand ardiz ed total PSA (Grider man Coult er). Myles rison of seria l PSA resul ts shoul d be inter prete d with this fact in mind. This test was perfo rmed using the [employer] ns chemi lumin escen t metho d. Value s obtai tom from diffe rent assay metho ds canno t be used inter medrano eably . PSA level s, regar dless of value , shoul d not be inter prete d as absol [place] evide nce of the prese nce or absen ce of disea se. Not Available [facility] [address] [place], [address], 01/08/2023 07:02:18 01/08/20 23 01/08/2023 TSH W/REF GAYLA TO FT4 TSH w/reflex to FT4 2.05 mIU/L 0.40-4 .50 normal Not Available [facility] [address] [place], [address], 01/08/2023 07:02:18 01/08/20 23 01/08/2023 VITAM IN D,25- OH,TO CHARITY,I A vitamin D,25-oh,tota l,ia 34 NG/mL 30-100 normal Vitam in D Statu s 25-OH Vitam in D: Defic iency : <20 ng/mL Insuf ficie ncy: 20 - 29 ng/mL Optim al: > or = 30 ng/mL For 25-OH Vitam in D testi ng on patie nts on D2-arteaga pplem entat ion and patie nts for whom quant itati on of D2 and D3 fract ions is requi red, the [facility] eD(TM ) 25-OH VIT D, (D2,D 3), LC/MS /MS is recom ward d: order code 40083 (romana ents >2yrs ). See Note 1 Note 1 For addit ional infor rosalinda watson refer to http: //eliza Almanzar stDia gnost ics.c om/fa q/FAQ 199 (This link is being provi ded for infor marquita sanchez/ mely taylor purpo ses only. ) Not Available [facility] [address] [place], [address], 01/08/2023 07:02:19 09/26/19 24 09/27/2023 LIPID PANEL , STAND RISSA cholesterol, total 229 mg/dL <200 high Not Available [facility] [address] [place], [address], 09/27/2023 09:50:45 09/26/19 24 09/27/2023 LIPID PANEL , STAND RISSA HDL cholesterol 69 mg/dL > or = 40 normal Not Available [facility] [address] [facility], [place], [address], 09/27/2023 09:50:45 09/26/19 24 09/27/2023 LIPID PANEL , STAND RISSA triglyceride s 91 mg/dL <150 normal Not Available [facility] [address] [facility], [place], [address], 09/27/2023 09:50:45 09/26/19 24 09/27/2023 LIPID PANEL , STAND RISSA LDL-choleste rol 140 mg/dL _(toribio c) high Refer ence range : <100 Juan able range <100 mg/dL for prima ry preve ntion ; <70 mg/dL for patie nts with CHD or diabe tic patie nts with > or = 2 CHD risk facto rs. LDL-C is now calcu lated using the Guillermina larios-Hop kins shawnu eloisa n, which is a valid ated novel annao d beléni beto felicita r accur acy than the Fried ruthy equat ion in the estim ation of LDL-C . Guillermina larios SS et al. CLEMENTINA. 2013; 310(1 9): 2061- 2068 (http ://ed ucati on.Qu [place] Fastnote. com/f aq/FA Q164) Not Available [facility] [address] [facility], [place], [address], 09/27/2023 09:50:45 09/26/19 24 09/27/2023 LIPID PANEL , STAND RISSA chol/HDLC ratio 3.3 (calc ) <5.0 normal Not Available [facility] [address] [facility] [place], [address], 09/27/2023 09:50:45 09/26/19 24 09/27/2023 LIPID PANEL , STAND RISSA non HDL cholesterol 160 mg/dL _(toribio c) <130 high For patie nts with diabe maria esther plus 1 major ASCVD risk facto r, treat ing to a non-H DL-C goal of <100 mg/dL (LDL- C of <70 mg/dL ) is consi dered a thera peuti c optio n. Not Available [facility] [address] [place], [address], 09/27/2023 09:50:45 09/26/19 24 09/27/2023 COMPR EHENS PELON METAB OLIC PANEL glucose 105 mg/dL 65-99 high Fasti ng refer ence inter nani For someo ne witho ut known diabe maria estehr, a gluco se value betwe en 100 and 125 mg/dL is consi stent with predi abete s and shoul d be confi rmed with a follo w-up test. Not Available [facility] [address] [place], [address], 09/27/2023 09:50:45 09/26/19 24 09/27/2023 COMPR EHENS PELON METAB OLIC PANEL urea nitrogen (BUN) 26 mg/dL 7-25 high Not Available [facility] [address] [place], [address], 09/27/2023 09:50:45 09/26/19 24 09/27/2023 COMPR EHENS PELON METAB OLIC PANEL creatinine 1.02 mg/dL 0.70-1 .35 normal Not Available [facility] [address] [place], [address], 09/27/2023 09:50:45 09/26/19 24 09/27/2023 COMPR EHENS PELON METAB OLIC PANEL eGFR 84 mL/mi n/1.7 3m2 > or = 60 normal Not Available [facility] [address] [place], [address], 09/27/2023 09:50:45 09/26/19 24 09/27/2023 COMPR EHENS PELON METAB OLIC PANEL BUN/creatini ne ratio 25 (calc ) 6-22 high Not Available [facility] [address] [place], [address], 09/27/2023 09:50:45 09/26/19 24 09/27/2023 COMPR EHENS PELON METAB OLIC PANEL sodium 141 mmol/ L 135-14 6 normal Not Available [facility] [address] [place], [address], 09/27/2023 09:50:45 09/26/19 24 09/27/2023 COMPR EHENS PELON METAB OLIC PANEL potassium 4.3 mmol/ L 3.5-5. 3 normal Not Available [facility] [address] [place], [address], 09/27/2023 09:50:45 09/26/19 24 09/27/2023 COMPR EHENS PELON METAB OLIC PANEL chloride 104 mmol/ L 98-110 normal Not Available [facility] [address] [place], [address], 09/27/2023 09:50:45 09/26/19 24 09/27/2023 COMPR EHENS PELON METAB OLIC PANEL carbon dioxide 26 mmol/ L 20-32 normal Not Available [facility] [address] [place], [address], 09/27/2023 09:50:45 09/26/19 24 09/27/2023 COMPR EHENS PELON METAB OLIC PANEL calcium 9.6 mg/dL 8.6-10 .3 normal Not Available [facility] [address] [place], [address], 09/27/2023 09:50:45 09/26/19 24 09/27/2023 COMPR EHENS PELON METAB OLIC PANEL protein, total 6.6 g/dL 6.1-8. 1 normal Not Available [facility] [address] [place], [address], 09/27/2023 09:50:45 09/26/19 24 09/27/2023 COMPR EHENS PELON METAB OLIC PANEL albumin 4.4 g/dL 3.6-5. 1 normal Not Available [facility] [address] [facility] [place], [address], 09/27/2023 09:50:45 09/26/19 24 09/27/2023 COMPR EHENS PELON METAB OLIC PANEL globulin 2.2 g/dL_ (calc ) 1.9-3. 7 normal Not Available [facility] [address] [facility] [place], [address], 09/27/2023 09:50:45 09/26/19 24 09/27/2023 COMPR EHENS PELON METAB OLIC PANEL albumin/glob ulin ratio 2.0 (calc ) 1.0-2. 5 normal Not Available [employer] [facility] [address] [facility] [place], [address], 09/27/2023 09:50:45 09/26/19 24 09/27/2023 COMPR EHENS PELON METAB OLIC PANEL bilirubin, total 0.4 mg/dL 0.2-1. 2 normal Not Available [employer] [facility] [address] [facility] [place], [address], 09/27/2023 09:50:45 09/26/19 24 09/27/2023 COMPR EHENS PELON METAB OLIC PANEL alkaline phosphatase 63 U/L 35-144 normal Not Available [employer] [facility] [address] [facility] [place], [address], 09/27/2023 09:50:45 09/26/19 24 09/27/2023 COMPR EHENS PELON METAB OLIC PANEL AST 20 U/L 10-35 normal Not Available [employer] [facility] [address] [place], [address], 09/27/2023 09:50:45 09/26/19 24 09/27/2023 COMPR EHENS PELON METAB OLIC PANEL ALT 16 U/L 9-46 normal Not Available [facility] [address] [facility] [place], [address], 09/27/2023 09:50:45 09/26/19 24 09/27/2023 CBC (INCL UDES DIFF/ PLT) white blood cell count 8.0 thous and/u L 3.8-10 .8 normal Not Available [facility] [address] [facility] [place], [address], 09/27/2023 09:50:46 09/26/19 24 09/27/2023 CBC (INCL UDES DIFF/ PLT) red blood cell count 4.70 marivel on/uL 4.20-5 .80 normal Not Available [facility] [address] [facility] [place], [address], 09/27/2023 09:50:46 09/26/19 24 09/27/2023 CBC (INCL UDES DIFF/ PLT) hemoglobin 14.2 g/dL 13.2-1 7.1 normal Not Available [facility] [address] [facility] [place], [address], 09/27/2023 09:50:46 09/26/19 24 09/27/2023 CBC (INCL UDES DIFF/ PLT) hematocrit 43.3 % 38.5-5 0.0 normal Not Available [facility] [address] [facility] [place], [address], 09/27/2023 09:50:46 09/26/19 24 09/27/2023 CBC (INCL UDES DIFF/ PLT) MCV 92.1 fL 80.0-1 00.0 normal Not Available [facility] [address] [facility] [place], [address], 09/27/2023 09:50:46 09/26/19 24 09/27/2023 CBC (INCL UDES DIFF/ PLT) MCH 30.2 pg 27.0-3 3.0 normal Not Available [facility] [address] [facility] [place], [address], 09/27/2023 09:50:46 09/26/19 24 09/27/2023 CBC (INCL UDES DIFF/ PLT) MCHC 32.8 g/dL 32.0-3 6.0 normal Not Available [facility] [address] [facility] [place], [address], 09/27/2023 09:50:46 09/26/19 24 09/27/2023 CBC (INCL UDES DIFF/ PLT) RDW 12.9 % 11.0-1 5.0 normal Not Available [facility] [address] [facility] [facility], [place], [address], 09/27/2023 09:50:46 09/26/19 24 09/27/2023 CBC (INCL UDES DIFF/ PLT) platelet count 280 thous and/u L 140-40 0 normal Not Available [facility] [address] [facility] [place], [address], 09/27/2023 09:50:46 09/26/19 24 09/27/2023 CBC (INCL UDES DIFF/ PLT) MPV 10.2 fL 7.5-12 .5 normal Not Available [facility] [address] [facility] [address] [facility] [facility], [place], [address], 09/27/2023 09:50:46 09/26/19 24 09/27/2023 CBC (INCL UDES DIFF/ PLT) absolute neutrophils 4352 cells /uL 1500-7 800 normal Not Available [facility] [address] [facility] [place], [address], 09/27/2023 09:50:46 09/26/19 24 09/27/2023 CBC (INCL UDES DIFF/ PLT) absolute lymphocytes 2432 cells /uL 850-39 00 normal Not Available [facility] [address] [facility] [place], [address], 09/27/2023 09:50:46 09/26/19 24 09/27/2023 CBC (INCL UDES DIFF/ PLT) absolute monocytes 664 cells /uL 200-95 0 normal Not Available [facility] [address] [facility] [address] [facility], [place], [address], 09/27/2023 09:50:46 09/26/19 24 09/27/2023 CBC (INCL UDES DIFF/ PLT) absolute eosinophils 480 cells /uL 15-500 normal Not Available [facility] [address] [facility] [place], [address], 09/27/2023 09:50:46 09/26/19 24 09/27/2023 CBC (INCL UDES DIFF/ PLT) absolute basophils 72 cells /uL 0-200 normal Not Available [facility] [address] [facility] [place], [address], 09/27/2023 09:50:46 09/26/19 24 09/27/2023 CBC (INCL UDES DIFF/ PLT) neutrophils 54.4 % normal Not Available [facility] [address] [facility] [address] [facility], [place], [address], 09/27/2023 09:50:46 09/26/19 24 09/27/2023 CBC (INCL UDES DIFF/ PLT) lymphocytes 30.4 % normal Not Available [facility] [address] [facility] [place], [address], 09/27/2023 09:50:46 09/26/19 24 09/27/2023 CBC (INCL UDES DIFF/ PLT) monocytes 8.3 % normal Not Available [facility] [address] [place], [address], 09/27/2023 09:50:46 09/26/19 24 09/27/2023 CBC (INCL UDES DIFF/ PLT) eosinophils 6.0 % normal Not Available [facility] [address] [place], [address], 09/27/2023 09:50:46 09/26/19 24 09/27/2023 CBC (INCL UDES DIFF/ PLT) basophils 0.9 % normal Not Available [facility] [address] [place], [address], 09/27/2023 09:50:46 09/26/19 24 09/27/2023 PSA, TOTAL PSA, total 1.75 NG/mL < or = 4.00 normal The total PSA value from this assay syste m is stand ardiz ed again st the WHO stand rissa. The test resul t will be appro ximat kei 20% lower when myles red to the equim olar- stand ardiz ed total PSA (Grider man Coult er). Myles rison of seria l PSA resul ts shoul d be inter prete d with this fact in mind. This test was perfo rmed using the [employer] chemi lumin escen t metho d. Value s obtai tom from diffe rent assay metho ds canno t be used inter medrano eably . PSA level s, regar dless of value , shoul d not be inter prete d as absol [place] evide nce of the prese nce or absen ce of disea se. Not Available [facility] [address] [place], [address], 09/27/2023 09:50:46 09/26/19 24 09/27/2023 TSH W/REF GAYLA TO FT4 TSH w/reflex to FT4 4.02 mIU/L 0.40-4 .50 normal Not Available [facility] [address] [place], [address], 09/27/2023 09:50:47 09/26/19 24 09/27/2023 HEMOG LOBIN A1C hemoglobin A1C 5.9 %_of_ total _HGB <5.7 high For someo ne witho ut known diabe maria esther, a hemog lobin A1c value betwe en 5.7% and 6.4% is consi stent with predi abete s and shoul d be confi rmed with a follo w-up test. For someo ne with known diabe maria esther, a value <7% indic ates that their diabe maria esther is well contr olled . A1c targe ts shoul d be indiv idual ized based on durat ion of diabe maria esther, age, comor bid condi tions , and other consi derat ions. This assay resul t is consi stent with an incre ased risk of diabe maria esther. Curre ntly, no conse nsus exist s regar ding use of hemog lobin A1c for diagn osis of diabe maria esther for child zacarias. This test was perfo rmed on the [employer] johnny c503 platf orm. Effec tive 4, a medrano e in test platf orms from the [employer] t[employer] to the [employer] johnny c503 may have shift ed HbA1c resul ts myles red to histo rical resul ts. Based on labor atory valid ation testi ng condu cted at [facility] , the [employer] platf orm relat pelon to the [employer] platf orm had an avera ge incre ase in HbA1c value of < or = 0.3%. This diffe rence is withi n accep tg varia bilit y estab lishe d by the [employer] hemog lobin Stand ardiz ation Progr am. Note that not all indiv idual s will have had a shift in their resul ts and direc t myles rison s betwe en histo rical and curre nt resul ts for testi ng condu cted on diffe rent platf orms is not recom ward d. Not Available [facility] [address] [facility], [place], [address], 09/27/2023 09:50:47 12/26/1912/27/2023 CBC WITH DIFFE RENTI AL/PL ATELE T WBC 8.2 x10e3 /uL 3.4-10 .8 normal Not Available [facility] ([facility]) [address] [place], [address], 12/27/2023 06:12:30 12/26/1912/27/2023 CBC WITH DIFFE RENTI AL/PL ATELE T RBC 4.48 x10e6 /uL 4.14-5 .80 normal Not Available [facility] ([facility]) [address] [place], [address], 12/27/2023 06:12:30 12/26/1912/27/2023 CBC WITH DIFFE RENTI AL/PL ATELE T hemoglobin 13.8 g/dL 13.0-1 7.7 normal Not Available [facility] ([facility]) [address] [place], [address], 12/27/2023 06:12:30 12/26/1912/27/2023 CBC WITH DIFFE RENTI AL/PL ATELE T hematocrit 41.8 % 37.5-5 1.0 normal Not Available [facility] ([facility]) [address] [place], [address], 12/27/2023 06:12:30 12/26/1912/27/2023 CBC WITH DIFFE RENTI AL/PL ATELE T MCV 93 fL 79-97 normal Not Available [facility] ([facility]) [address] [place], [address], 12/27/2023 06:12:30 12/26/1912/27/2023 CBC WITH DIFFE RENTI AL/PL ATELE T MCH 30.8 pg 26.6-3 3.0 normal Not Available [facility] ([facility]) [address] [place], [address], 12/27/2023 06:12:30 12/26/1912/27/2023 CBC WITH DIFFE RENTI AL/PL ATELE T MCHC 33.0 g/dL 31.5-3 5.7 normal Not Available [facility] ([facility]) [address] [facility], [place], [address], 12/27/2023 06:12:30 12/26/1912/27/2023 CBC WITH DIFFE RENTI AL/PL ATELE T RDW 12.7 % 11.6-1 5.4 Not Available [facility] ([facility]) [address] [facility], [place], [address], 12/27/2023 06:12:30 12/26/19 24 12/27/2023 CBC WITH DIFFE RENTI AL/PL ATELE T platelets 256 x10e3 /uL 150-45 0 normal Not Available [facility] ([facility]) [address] [facility], [place], [address], 12/27/2023 06:12:30 12/26/1912/27/2023 CBC WITH DIFFE RENTI AL/PL ATELE T neutrophils 54 % not estab. normal Not Available [facility] ([facility]) [address] [facility], [place], [address], 12/27/2023 06:12:30 12/26/1912/27/2023 CBC WITH DIFFE RENTI AL/PL ATELE T lymphs 28 % not estab. normal Not Available [facility] ([facility]) [address] [place], [address], 12/27/2023 06:12:30 12/26/19 24 12/27/2023 CBC WITH DIFFE RENTI AL/PL ATELE T monocytes 8 % not estab. normal Not Available [facility] ([facility]) [address] [facility], [place], [address], 12/27/2023 06:12:30 12/26/19 24 12/27/2023 CBC WITH DIFFE RENTI AL/PL ATELE T eos 9 % not estab. normal Not Available [facility] ([facility]) [address] [facility], [place], [address], 12/27/2023 06:12:30 12/26/1912/27/2023 CBC WITH DIFFE RENTI AL/PL ATELE T basos 1 % not estab. normal Not Available [facility] ([facility]) [address] [place], [address], 12/27/2023 06:12:30 12/26/1912/27/2023 CBC WITH DIFFE RENTI AL/PL ATELE T immature cells [employer] Not Available [facility] ([facility]) [address] [place], [address], 12/27/2023 06:12:30 12/26/19 24 12/27/2023 CBC WITH DIFFE RENTI AL/PL ATELE T neutrophils (absolute) 4.4 x10e3 /uL 1.4-7. 0 normal Not Available [facility] ([facility]) [address] [place], [address], 12/27/2023 06:12:30 12/26/19 24 12/27/2023 CBC WITH DIFFE RENTI AL/PL ATELE T lymphs (absolute) 2.3 x10e3 /uL 0.7-3. 1 normal Not Available [facility] ([facility]) [address] [place], [address], 12/27/2023 06:12:30 12/26/1912/27/2023 CBC WITH DIFFE RENTI AL/PL ATELE T monocytes(ab solute) 0.7 x10e3 /uL 0.1-0. 9 normal Not Available [facility] ([facility]) [address] [place], [address], 12/27/2023 06:12:30 12/26/19 24 12/27/2023 CBC WITH DIFFE RENTI AL/PL ATELE T eos (absolute) 0.7 x10e3 /uL 0.0-0. 4 above high normal Not Available [facility] ([facility]) [address] [facility], [place], [address], 12/27/2023 06:12:30 12/26/1912/27/2023 CBC WITH DIFFE RENTI AL/PL ATELE T baso (absolute) 0.1 x10e3 /uL 0.0-0. 2 normal Not Available [facility] ([facility]) [address] [facility], [place], [address], 12/27/2023 06:12:30 12/26/19 24 12/27/2023 CBC WITH DIFFE RENTI AL/PL ATELE T immature granulocytes 0 % not estab. Not Available [facility] ([facility]) [address] [facility], [place], [address], 12/27/2023 06:12:30 12/26/19 24 12/27/2023 CBC WITH DIFFE RENTI AL/PL ATELE T immature grans (abs) 0.0 x10e3 /uL 0.0-0. 1 Not Available [facility] ([facility]) [address] [facility], [place], [address], 12/27/2023 06:12:30 12/26/19 24 12/27/2023 CBC WITH DIFFE RENTI AL/PL ATELE T NRBC [employer] Not Available [facility] ([facility]) [address] [facility], [place], [address], 12/27/2023 06:12:30 12/26/1912/27/2023 CBC WITH DIFFE RENTI AL/PL ATELE T hematology comments: [employer] Not Available [facility] ([facility]) [address] [facility], [place], [address], 12/27/2023 06:12:30 12/26/19 24 12/27/2023 COMP. METAB OLIC PANEL (14) glucose 93 mg/dL 70-99 normal Not Available [facility] ([facility]) [address] [facility], [place], [address], 12/27/2023 06:12:31 12/26/19 24 12/27/2023 COMP. METAB OLIC PANEL (14) BUN 27 mg/dL 8-27 normal Not Available [facility] ([facility]) [address] [facility], [place], [address], 12/27/2023 06:12:31 12/26/1912/27/2023 COMP. METAB OLIC PANEL (14) creatinine 0.92 mg/dL 0.76-1 .27 normal Not Available [facility] ([facility]) [address] [place], [address], 12/27/2023 06:12:31 12/26/19 24 12/27/2023 COMP. METAB OLIC PANEL (14) eGFR 94 mL/mi n/1.7 3 >59 normal Not Available [facility] ([facility]) [address] [facility], [place], [address], 12/27/2023 06:12:31 12/26/19 24 12/27/2023 COMP. METAB OLIC PANEL (14) BUN/creatini ne ratio 29 10-24 above high normal Not Available [facility] ([facility]) [address] [facility], [place], [address], 12/27/2023 06:12:31 12/26/1912/27/2023 COMP. METAB OLIC PANEL (14) sodium 142 mmol/ L 134-14 4 normal Not Available [facility] ([facility]) [address] [place], [address], 12/27/2023 06:12:31 12/26/19 24 12/27/2023 COMP. METAB OLIC PANEL (14) potassium 4.4 mmol/ L 3.5-5. 2 normal Not Available [facility] ([facility]) [address] [facility] [place], [address], 12/27/2023 06:12:31 12/26/19 24 12/27/2023 COMP. METAB OLIC PANEL (14) chloride 105 mmol/ L 96-106 normal Not Available [facility] ([facility]) [address] [facility] [place], [address], 12/27/2023 06:12:31 12/26/19 24 12/27/2023 COMP. METAB OLIC PANEL (14) carbon dioxide, total 24 mmol/ L 20-29 normal Not Available [facility] ([facility]) [address] [facility] [place], [address], 12/27/2023 06:12:31 12/26/1912/27/2023 COMP. METAB OLIC PANEL (14) calcium 9.5 mg/dL 8.6-10 .2 normal Not Available [facility] ([facility]) [address] [facility] [place], [address], 12/27/2023 06:12:31 12/26/19 24 12/27/2023 COMP. METAB OLIC PANEL (14) protein, total 6.1 g/dL 6.0-8. 5 normal Not Available [facility] ([facility]) [address] [facility] [place], [address], 12/27/2023 06:12:31 12/26/19 24 12/27/2023 COMP. METAB OLIC PANEL (14) albumin 4.4 g/dL 3.9-4. 9 normal Not Available [facility] ([facility]) [address] [facility] [place], [address], 12/27/2023 06:12:31 12/26/19 24 12/27/2023 COMP. METAB OLIC PANEL (14) globulin, total 1.7 g/dL 1.5-4. 5 Not Available [facility] ([facility]) [address] [facility] [place], [address], 12/27/2023 06:12:31 12/26/19 24 12/27/2023 COMP. METAB OLIC PANEL (14) bilirubin, total 0.3 mg/dL 0.0-1. 2 normal Not Available [facility] ([facility]) [address] [facility] [place], [address], 12/27/2023 06:12:31 12/26/19 24 12/27/2023 COMP. METAB OLIC PANEL (14) alkaline phosphatase 67 IU/L 44-121 normal Not Available [facility] ([facility]) [address] [facility] [place], [address], 12/27/2023 06:12:31 12/26/19 24 12/27/2023 COMP. METAB OLIC PANEL (14) AST (SGOT) 23 IU/L 0-40 normal Not Available [facility] ([facility]) [address] [facility] [place], [address], 12/27/2023 06:12:31 12/26/19 24 12/27/2023 COMP. METAB OLIC PANEL (14) ALT (SGPT) 15 IU/L 0-44 normal Not Available [facility] ([facility]) [address] [facility] [place], [address], 12/27/2023 06:12:31 12/26/19 24 12/27/2023 LIPID PANEL cholesterol, total 173 mg/dL 100-19 9 normal Not Available [facility] ([facility]) [address] [facility] [place], [address], 12/27/2023 06:12:31 12/26/19 24 12/27/2023 LIPID PANEL triglyceride s 99 mg/dL 0-149 normal Not Available [facility] ([facility]) [address] [facility] [place], [address], 12/27/2023 06:12:31 12/26/1912/27/2023 LIPID PANEL HDL cholesterol 60 mg/dL >39 normal Not Available [facility] ([facility]) [address] [facility], [place], [address], 12/27/2023 06:12:31 12/26/1912/27/2023 LIPID PANEL VLDL cholesterol toribio 18 mg/dL 5-40 Not Available [facility] ([facility]) [address] [facility], [place], [address], 12/27/2023 06:12:31 12/26/1912/27/2023 LIPID PANEL LDL chol calc ([facility]) 95 mg/dL 0-99 Not Available [facility] [address] [facility], [place], [address], 12/27/2023 06:12:31 12/26/1912/27/2023 LIPID PANEL LDL calc comment: [employer] Not Available [facility] ([facility]) [address] [facility], [place], [address], 12/27/2023 06:12:31 12/26/1912/27/2023 HEMOG LOBIN A1C hemoglobin A1C 5.8 % 4.8-5. 6 above high normal Predi abete s: 5.7 - 6.4 Diabe maria esther: >6.4 Glyce catarina contr ol for adult s with diabe maria esther: <7.0 Not Available [facility] ([facility]) [address] [facility], [place], [address], 12/27/2023 06:12:32 05/15/1905/14/2024 rapid SARS CoV 2 Ag, QL, [place], upper respi rator y speci men SARS CoV Ag negati ve Not Available [address], [place], [address], 05/14/2024 11:01:41 05/15/19 25 05/14/2024 rapid flu (A+B) Flu A positi ve Not Available [address], [address], 05/14/2024 11:01:25 05/15/19 25 05/14/2024 rapid flu (A+B) Flu B negati ve Not Available [address], [address], 05/14/2024 11:01:25 01/08/20 23 XR, lumba r spine No observ ation record ed. [email or web address] Not Available 02/28 15:07:19 01/19/20 24 01/09/2024 LDCT, chest , for lung cance r scree michael No observ ation record ed. [email or web address] [facility] [address], [place], [address], 02/10/2024 14:56:24 Result Notes None recorded. Problems Name Problem SNOMED Code Status Onset Date Resolution Date Notes Provider Name and Address Organization Details Recorded Time Hyperlipidemia 04629119 Active 2023 Whitney torres [place] - [employer] 13:14:37 Problem Notes None recorded. Medical Equipment None Reported. Allergies No known drug allergies Medications Name Sig Start Date Stop Date Status Note LastModified by Organization Details LastModified Time atorvasta tin 40 mg tablet TAKE ONE TABLET BY MOUTH EVERY DAY active Not Available Not Available No t Available methocarb anthony 500 mg tablet TAKE ONE TABLET BY MOUTH TWICE DAILY NEEDED active Not Available Not Available No t Available atorvasta tin 10 mg tablet TAKE ONE TABLET BY MOUTH EVERY DAY active Not Available Not Available No t Available ibuprofen 800 mg tablet TAKE ONE TABLET BY MOUTH THREE TIMES DAILY WITH FOOD 01/07 completed cannot take with meloxica m Not Available Not Available Not Available meloxicam 15 mg tablet TAKE ONE TABLET BY MOUTH ONCE DAILY NEEDED FOR 90 DAYS active Not Available Not Available No t Available prednison e 20 mg tablet TAKE ONE TABLET BY MOUTH THREE TIMES DAILY FOR 3 DAYS active Not Available Not Available No t Available aspirin 81 mg tablet,de layed release TAKE ONE TABLET BY MOUTH EVERY DAY active Not Available Not Available No t Available docusate sodium 100 mg capsule TAKE ONE CAPSULE BY MOUTH TWICE DAILY NEEDED active Not Available Not Available No t Available aspirin 81 mg chewable tablet CHEW & SWALLOW ONE TABLET BY MOUTH EVERY DAY active Not Available Not Available No t Available alprazola m 2 mg tablet TAKE ONE TABLET BY MOUTH 1 hour BEFORE mri MAY CAUSE DROWSINE SS 01/07 completed Not Available Not Available Not Available metoprolo l succinate ER 25 mg tablet,ex tended release 24 hr TAKE ONE TABLET BY MOUTH EVERY DAY active Not Available Not Available No t Available methylpre dnisolone 4 mg tablets in a dose pack TAKE SASHAIN G TO PACKAGE INSTRUCT IONS --TAKE WITH FOOD-- -- FINISH ALL MEDICINE -- 01/07 completed Not Available Not Available Not Available brompheni ramine-ps eudoephed rine-DM 2 mg-30 mg-10 mg/5 mL oral syrup TAKE 10ML BY MOUTH EVERY 4 TO 6 HOURS NEEDED FOR COUGH active Not Available Not Available No t Available amoxicill in 875 mg-potass ium clavulana te 125 mg tablet TAKE ONE TABLET BY MOUTH TWICE DAILY FOR 10 DAYS -- FINISH ALL MEDICINE -- active Not Available Not Available No t Available Ventolin HFA 90 mcg/actua tion aerosol inhaler INHALE TWO PUFFS BY MOUTH EVERY 4 HOURS NEEDED active Not Available Not Available No t Available One Daily Multivita min tablet TAKE ONE TABLET BY MOUTH EVERY DAY active Not Available Not Available No t Available ezetimibe 10 mg tablet Take 1 tablet every day by oral route for 90 days. 12/25 completed Not Available Not Available Not Available buprenorp geovany 8 mg-naloxo ne 2 mg sublingua l tablet DISSOLVE 2 TABLETS UNDER THE TONGUE ONCE DAILY DIRECTED active Not Available Not Available No t Available rosuvasta tin 5 mg tablet TAKE ONE TABLET BY MOUTH WEEKLY FOR 90 DAYS active Not Available Not Available No t Available rosuvasta tin 40 mg tablet Take 1 tablet every day by oral route for 90 days. 09/25 completed Not Available Not Available Not Available Vitals Date Recorded Body height Body mass index (BMI) Body weight Heart rate Oxygen saturation Oxygen saturation in Arterial blood by Pulse oximetry Systolic blood pressure Diastolic blood pressure Provider Name and Address Organization Details Last Updated DateTime 4 172.72 cm 22.4 kg/m2 78462.0 8 g 70 /min 97 % 97 % 130 mm[Hg] 86 mm[Hg] Whitney Cubiez. 4 10:18:00 Date Recorded Body height Body mass index (BMI) Body weight Heart rate Oxygen saturation Oxygen saturation in Arterial blood by Pulse oximetry Systolic blood pressure Diastolic blood pressure Provider Name and Address Organization Details Last Updated DateTime 5 172.72 cm 21.3 kg/m2 95793.6 3 g 75 /min 94 % 94 % 131 mm[Hg] 82 mm[Hg] Irma Carrascoon [employer] 5 11:00:13 Date Recorded Body height Body mass index (BMI) Body weight Heart rate Oxygen saturation Oxygen saturation in Arterial blood by Pulse oximetry Systolic blood pressure Diastolic blood pressure Provider Name and Address Organization Details Last Updated DateTime 4 172.72 cm 21.1 kg/m2 72365.5 5 g 74 /min 95 % 95 % 135 mm[Hg] 87 mm[Hg] Whitney [employer] 4 10:24:41 Date Recorded Body height Body mass index (BMI) Body weight Heart rate Oxygen saturation Oxygen saturation in Arterial blood by Pulse oximetry Systolic blood pressure Diastolic blood pressure Provider Name and Address Organization Details Last Updated DateTime 4 172.72 cm 21.8 kg/m2 47566.4 1 g 67 /min 95 % 95 % 131 mm[Hg] 79 mm[Hg] [employer] 4 13:13:42 Date Recorded Body height Body mass index (BMI) Body weight Heart rate Oxygen saturation Oxygen saturation in Arterial blood by Pulse oximetry Systolic blood pressure Diastolic blood pressure Systolic blood pressure Diastolic blood pressure Provider Name and Address Organization Details Last Updated DateTime 3 172.72 cm 22.4 kg/m2 79739.0 8 g 87 /min 98 % 98 % 170 mm[Hg] 85 mm[Hg] 173 mm[Hg] 89 mm[Hg] Tete Richardson [email or web address] 11:13:31 Social History Question Answer Notes LastModified by Organizat ion Details LastModified Time Tobacco Smoking Status Current Every Day Smoker Tete torres [email or web address] 01/07/2023 11:04:28 Do You Have An Advance Directive? No Information n ot available 01/07/2023 Is Your Home Air Conditioned? Yes Information not available 01/07/2023 How Many Years Have You Consumed Alcohol? 30 Information not available 01/07/2023 Do You Wear A Helmet When Biking? Yes Information not available 01/07/2023 Are You Blind Or Do You Have Difficulty Seeing? Yes Information n ot available 01/07/2023 What Is Your Level Of Caffeine Consumption? Moderate Information not available 01/07/2023 In The 14 Days Before Symptom Onset, Have You Had Close Contact With A Laboratory-confirm ed COVID-19 While That Case Was Ill? No Information n ot available 01/07/2023 In The 14 Days Before Symptom Onset, Have You Had Close Contact With A Person Who Is Under Investigation For COVID-19 While That Person Was Ill? No Information not available 01/07/2023 Have You Been To An Area Known To Be High Risk For COVID-19? No Information not available 01/07/2023 Are You Deaf Or Do You Have Serious Difficulty Hearing? Yes Information not available 01/07/2023 What Type Of Diet Are You Following? REGULAR Information n ot available 01/07/2023 Who Is Your Employer? [employer] Information not available 01/07/2023 How Many Days Of Moderate To Strenuous Exercise, Like A Brisk Walk, Did You Do In The Last 7 Days? 5 Information not available 01/07/2023 Have There Been Any Changes To Your Family Or Social Situation? No Information no t available 01/07/2023 Are There Any Guns Present In Your Home? No Information not available 01/07/2023 Which Of Your Hands Is Dominant? Left Information n ot available 01/07/2023 What Is Your Home Situation? Other Information not available 01/07/2023 Do You Have A Medical Power Of Metal Machine Setter? No Information not available 01/07/2023 What Was The Date Of Your Most Recent Tobacco Screening? 05/14/2024 Information not available 05/14/2024 Are There Any Occupational Health Risks Where You Work? [employer] Information not available 01/07/2023 Do You Have Any Pets? Yes Information not available 01/07/2023 Do You Use Protection During Sex? No Information not available 01/07/2023 What Is Your Relationship Status? Domestic Partner Information not available 01/07/2023 Have You Repeated Any Grades? No Information not available 01/07/2023 Do You Use Your Seat Belt Or Car Seat Routinely? Yes Information not available 01/07/2023 Are You Sexually Active? Yes Information not available 01/07/2023 Do You Have Smoke And Carbon Monoxide Detectors In Your Home? Yes Information not available 01/07/2023 At What Age Did You Start Smoking Tobacco? 15 Information not available 01/07/2023 Are You Passively Exposed To Smoke? Yes Information no t available 01/07/2023 Are There Any Smokers In Your House? Yes Information not available 01/07/2023 How Much Tobacco Do You Smoke? 1 PPD Information not available 01/07/2023 Do You Use Sunscreen Routinely? No Information not available 01/07/2023 Has Tobacco Cessation Counseling Been Provided? Yes [email or web address] Information not available 09/26/2023 On What Date Was Tobacco Cessation Counseling Provided? 05/14/2024 Information not available 05/14/2024 How Many Years Have You Smoked Tobacco? 45 Information not available 01/07/2023 Have You Recently Traveled Abroad? No Information not available 01/07/2023 Do You Have Difficulty Walking Or Climbing Stairs? No Information not available 01/07/2023 How Many Days In The Past Year Have You Consumed 5 Or More Drinks? 0 Information not available 01/07/2023 Sex: Male Functional Status Question Answer Note LastModified by Organizat ion Details LastModified Time Do you use any illicit or recreational drugs? No Information not available 01/07/2023 What is your level of alcohol consumption? Occasional Information not available 01/07/2023 Are you currently employed? Yes Information not available 01/07/2023 Are you able to walk? YESWOREST Information not available 01/07/2023 Do you have difficulty doing errands alone? No Information not available 01/07/2023 Are you able to care for yourself? Yes Information n ot available 01/07/2023 Do you have difficulty dressing or bathing? No Information not available 01/07/2023 What is your exercise level? Moderate Information not available 01/07/2023 Mental Status Question Answer Note LastModified by Organization D etails LastModified Time Do you have difficulty concentrating, remembering or making decisions? No Information no t available 01/07/2023 Are you or have you been involved with bullying? No Information not available 01/07/2023 Family History Nothing Reported. Medical History Condition Response Hospitalizations N Emergency room visit since last appointm ent. N Immunizations Vaccine Type Date Status Note Provider Name and Address Organization Details Recorded Time zoster recombinant 12/26/19 24 cancelled patient objection Riana Ruiz APRN [address] [place], [address], [email or web address] 12/26/2023 13:46:58 Influenza, split virus, trivalent, PF 12/26/19 24 cancelled patient objection Riana Ruiz APRN [address] [place], [address], [employer] 12/26/2023 13:46:58 COVID-19, mRNA, LNP-S, PF, madison-sucrose, 30 mcg/0.3 mL 12/26/19 24 cancelled patient objection Riana Stone, REFERENCE TEST CLERK[address], [address], [facility] [employer] 12/26/2023 13:46:58 Past Encounters Encounter ID Performer Location Encounter Start Date Encounter Closed Date Diagnosis/Indication Diagnosis SNOMED-CT Code Diagnosis ICD10 Code Diagnosis Note [id number] Riana Ruiz [place] [id number] 01/07/2023 10:26:02 01/07/2023 12:09:37 Fatigue 92170043 R53.83 Hyperlipidemia 17754098 E78.5 Vitamin D deficiency 347 78127 E55.9 Vitamin B deficiency 479 35375 E53.9 Nocturia 406545547 R35.1 Screening for malignant neoplasm of colon 678685556 Z12.11 Low back pain 230056603 M54.50 Elevated blood-pressure reading without diagnosis of hypertension 497723345 R03.0 Arthritis 0006928 M19.90 Spasm of back muscles 20 7983443 M62.830 Body mass index 20-24 - normal 426478117 Z68.22 [id number] Riana Ruiz [place] [id number] 04/15/2023 09:27:33 04/15/2023 10:52:58 Fatigue 60203161 R53.83 Arthritis 6418138 M19.90 Spasm of back muscles 20 5689477 M62.830 Hyperlipidemia 46485779 E78.5 Body mass index 20-24 - normal 537798120 Z68.22 [id number] Riana Ruiz [place] [id number] 09/26/2023 10:08:18 09/26/2023 10:54:48 Arthritis 7172650 M19.90 Spasm of back muscles 20 6554179 M62.830 Fatigue 90745945 R53.83 Hyperlipidemia 06051730 E78.5 Nocturia 388684488 R35.1 Hyperglycemia 59330032 R 73.9 Body mass index 20-24 - normal 323558966 Z68.22 [id number] Riana Ruiz [place] [id number] 12/26/2023 12:37:56 12/26/2023 13:27:21 Vaccine declined by patient [id number] 02 Z28.20 Hyperlipidemia 43686446 E78.5 Screening for malignant neoplasm of colon 841353082 Z12.11 Fatigue 24527405 R53.83 Hyperglycemia 43086559 R 73.9 Nicotine dependence 5629 4008 F17.200 Arthritis 9660470 M19.90 Spasm of back muscles 20 0330626 M62.830 Mixed hyperlipidemia 267 263224 E78.2 Body mass index 20-24 - normal 456986957 Z68.22 [id number] [place] [id number] 05/14/2024 10:28:48 05/14/2024 11:51:22 Influenza caused by Influenza A virus 521721924 J09.X2 Wheezing 40570668 R06.2 Cough 84896888 R05.9 Body mass index 20-24 - normal 822376919 Z68.22 Health Concerns Section Related Observation LastModified by Organization Detai ls LastModified Time None Recorded Concern Status LastModified by Organization Details LastModified Time None Recorded Advance Directives Directive N: Payers Insurance Date Sequence Insurance Name Policy Number Policy Crowe Covered Member ID Crowe Member ID Guarantor Name 05/13/2024 1 [employer] [facility] (MEDICAID HMO) [place] [id number] [place] 01/07/2023 1 *SELF PAY* Herb [place] Notes Date Note Type Note Provider Name and Address Organization Details Recorded Time 01/07/2023 text/html pt here today to est PCP. pt states that his previous PCP left without telling anyone. pt is very [place]. pt states that he is prescribed suboxone from [facility] and i told him that we have a MAT program here and told him a little about the program. pt states i will not go back to weekly visits . tried to explain to pt that all pt do that and then move up and he again states he wont do weekly visits again, although he does not like going to [place] and doing group thereapy. after his girlfriend steps out of the room he states that he did not have a drug problem but he was prescribed percocets for his back, knees and arthritis but he couldnt leave them in the house because his girfriend would take them so he went to the clinic when she did. pt also has HTN today. pt states that he bp goes up when he is in pain and his knees and back are hurting today. pt states that he is not going on any bp medicatin today. we will recheck at next visit and if still elevated will start bp med. follow a low sodium diet and exercise. increase water intake. pt goes on and on about his arthritis and filing for disability 12 years ago and still not getting it and he had to take a job at [employer] because his girl friend had a baby a year ago. and he does alot of heavy lifting. pt requests an MRI for his lower back. pt states that he has chronic low back pain. on exam, no tenderness and pt has ROM. i will order an xray. i will order routine labs. pt states that he had a colonoscopy many years ago and had polyps removed. i will order colon screening. it is lunch time. pt states that he will come back and get the labs and xray at 1300. Riana Ruiz APRN [address] [place], [address], [employer] 01/07/2023 12:56:31 04/15/2023 text/html pt here today fo r medicaton refills. pt states hes doing well on current medication regime and has no new complaints today. Riana Ruiz APRN [address] [place], [address], [employer] 04/15/2023 11:23:05 09/26/2023 text/html pt here today fo r medication refills. pt states hes doing well on current medication regime and has no new complaints today. pt has lost 9 lbs since last visit. 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 pt states that his back hurt constantly and that his previous doc prescribed methocarbamol to take daily and he has been taking it for years. i advised pt not to take daily only take PRN. pt has degenerative changes and some bone spurs to lumbar spine and i recommended PT. pt states that he is not going to do PT. pt states that he stopped taking the statin because it caused muscle aches all over . he does not want to take another medication stating that he lost wt . Riana Ruiz APRN [address] [place], [address], [email or web address] 09/26/2023 11:02:36 12/26/2023 text/html pt here today fo r medication refills. pt states hes doing well on current medication regime and has no new complaints today. pt states that he is taking his meds as prescribed and trying to eat a low cholesterol diet and states that he is trying to cut back on bread and sweets but it is hard when he takes his lunch to work. is at bedside and doesnt let pt talk alot for himself, or tries not to, states that he is hard of hearing, however he hears me just fine when i am talking with him. Riana Ruiz APRN [address] [place], [address], [email or web address] 12/26/2023 13:52:40 05/14/2024 text/html pt here today wi th c/o sore throat, cough, headaches and body aches x4 days. rapid flu A positive. advised pt to rest, increase fluids, tylenol/ibuprofen for pain. pt lungs are wheezy. pt does admit to smoking. i will order steroids and inhaler. pt , who is at bedside, rudely states that they will probably be going somewhere else next time. pt is very rude and argumentative with me and her at most visits. i asked the why. and she proceeds to explain that he has a secondary infection and that he needs an abx. i told her that after his assessment and testing that i dont feel that he does and this is the treatment i am ordering. pt goes on and on about it and i ask her where she got her medical degree. 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 and that she is his poa and that she has every right to be involved in his medical care. i looked at pt and asked him if he would like treatment from me today.pt states yes and asked his to stop arguing with me. i tried to educate pt on new meds (however was still trying to argue with me). i also advised pt to return for worsening symptoms or he can see a new medical doctor. i left the room and pt and pt stayed in the room a little while and argued about me not giving the care the thought pt needed. Riana Ruiz APRN [address] [facility], [place], [address], [facility] [employer] 05/14/2024 12:53:13
--- OUTSIDE RECORDS SUMMARY | 2024-08-26 13:19 | XMS_ITS | Referral Summary ---
Author Organization [facility] Address [address] [place] [address] [place] [address] Phone Care Team Providers Care Consulting Networking Engineer Name Role Phone Nate Lester MD Primary Care Provider + [phone] Allergies No known active allergies Medications Buprenorphine (BUTRANS) 20 MCG/HR PTWK Apply topically. Active atorvastatin (LIPITOR) 10 MG TABS Take 10 mg by mouth daily. Active hydrocodone-acet aminophen (LORTAB) 7.5-325 MG TABS Take 1 tablet by mouth every 6 (six) hours as needed. Active Active Problems Problem Noted Date Diagnosed Date Status post cervical spinal fusion 02/10/2020 [facility] ALLOWED: M50.322 DOI DDD degen disc dis c5-c6 12/15/2019 [facility] ALLOWED: M50.323 DOI Degeneration of intervertebral disc at C6-C7 level 12/15/2019 [facility] ALLOWED: S83.241A DOI tear med menisc knee right 12/15/2019 [facility] ALLOWED: S43.91XA DOI sprain shoulder/arm nos right shoulder 12/15/2019 [facility] ALLOWED: S83.91XA DOI Sprain of knee and leg, right, initial encounter 12/15/2019 [facility] ALLOWED: S13.4XXA DOI 05/27/2010 sprain of n connor 12/15/2019 [facility] ALLOWED: S33.5XXA DOI Sprain of lumbar region 12/15/2019 [facility] ALLOWED: M22.41 DOI 05/09 Chondromalacia of patella, right 12/15/2019 [facility] ALLOWED: M67.51 DOI 05/09 Plica syndrome of right knee 12/15/2019 [facility] ALLOWED: F32.9 DOI 05/27/2010 Depressive dis order 12/15/2019 [facility] ALLOWED: S23.3XXA DOI 05/27/[address]rain thor acic region 12/15/2019 [facility] ALLOWED: S30.0XXA DOI 05/27/2010 back contus ion 12/15/2019 [facility] ALLOWED: M51.24 DOI 05/09 THORACIC DISC DISPLACEMENT T6-T7 12/15/2019 [facility] ALLOWED: M51.24 DOI 05/09 THORACIC DISC DISPLACEMENT T7-T8 12/15/2019 [facility] ALLOWED: M51.24 DOI 05/09 THORACIC DISC DISPLACEMENT T9-T10 12/15/2019 [facility] DISALLOWED: M47.817 DOI 05/27/2010 SUB AGG PE LUMBAR SPONDYLOSIS L4-L5 12/15/2019 [facility] DISMISSED: S82.141A DOOI 05/27/2010 CLOSED FX MEDIAL PORTION TIBIAL PLATEAU RT KNEE 12/15/2019 [facility] ALLOWED: M99.71 DOI 05/09 FORAMINAL STENOSIS [...] Treatment Not on file Insurance [facility] Care Teams Consulting Networking Engineer Relationship Specialty Start Date End Date Nate Lester MD PCP - General Pain Medicine 05/19/17
--- NOTE | 2024-08-26 13:52 | EXP.PAIN.SOA ---
[facility] Disclaimer: The information contained in this section may have been updated after the patient was seen, as this information can be updated by other users. Medical History Degenerative disc disease (DDD) of lumbosacral region with axial back pain without leg pain Cervical radiculopathy Neck pain Encounter to establish care Bilateral otitis media Viral respiratory illness Muscle strain of right wrist Back pain Low back pain STD exposure Muscle spasm Smoker 1ppd since he was a teenager Atypical angina Coronary artery disease Abnormal electrocardiogram [ECG] [EKG] Abnormal findings on diagnostic imaging of heart and coronary circulation Family history of coronary artery disease in mother Coronary artery calcification seen on CT scan Mood disorder Anxiety HLD (hyperlipidemia) Surgical History H/O hand surgery History of back surgery History of surgery on lower extremity H/O knee surgery left and right H/O neck surgery Family History Other No significant family history Social History Smoking Status: Current every day smoker tobacco type: cigarettes packs per day: 1 second hand exposure: No alcohol intake: current alcohol intake frequency: holidays/special occasions only substance use type: former substance user, marijuana, opiates and other details: he states that he has tried just about everything at least once counseling given: No current occupational status: employed Travel in the last 8 weeks?: None adopted: No caregiver/support person: No foster care: No household members: significant other housing: apartment lives independently: Yes number of children: 2 number of grandchildren: 1 PM Subjective & Objective Subjective Subjective:: Patient is a pleasant 63-year-old male who presents today for worsening low back pain. Today he rates his pain a 6 out of 10. He does state that it does radiate into and around his hips and down his upper thighs to the front of his lower calves. He does state it is fairly constant and worse with increased activity such as standing or walking. He does state the pain interferes with his ability perform activities of daily living such as cooking and cleaning. Patient is interested in any help we may be able to provide. Patient is on Suboxone therapy from an outside provider. Patient has recently had updated imaging. His Sedrick has been reviewed and is appropriate. Review of Systems: General: No recent weight changes, no fever, no sleep disturbances Respiratory: No cough, no shortness of air, no recurring pulmonary infections Cardiovascular/peripheral vascular: No chest pain, no palpitations, no edema, no shortness of breath Gastrointestinal: No new onset incontinence, normal bowel movements reported Genitourinary: No new onset incontinence Musculoskeletal: Low back pain, bilateral leg pain Psychiatric: [Normal mood/affect] Neurological: [Denies weakness in extremities], [denies balance issues] Pain at rest (0-10 scale): 6 Objective Objective:: Physical Exam: General: Alert and oriented x3, no acute distress, pleasant and cooperative Lungs: Respirations even and unlabored, symmetrical chest expansion Eyes: PERRL Musculoskeletal: Flexion and extension of lumbar [spine] somewhat guarded secondary to pain, [antalgic gait noted] positive leg raise Neurological: Speech clear, no gross sensory deficit Has patient had previous pain injection?: No Conservative treatment options previously tried: Home exercise plan Length of treatment: Longer than 12 weeks Meds Home Medications and Allergies Home Medications ?Medication ?Instructions ?Recorded ?Confirmed ?Type buprenorphine 8 mg-naloxone 2 mg 1 tab sublingual BID Pain 12/10/21 08/05/24 History sublingual tablet aspirin 81 mg tablet,delayed 81 mg PO DAILY #90 tabs 05/27/24 08/05/24 Rx release (Adult Low Dose Aspirin) atorvastatin 40 mg tablet (Lipitor) 40 mg PO DAILY #90 tabs 05/27/24 08/05/24 Rx multivitamin (One Daily 1 tab PO DAILY #90 tabs 05/27/24 08/05/24 Rx Multivitamin tablet) metoprolol succinate 25 mg 25 mg PO DAILY #90 tabs 06/29/24 08/05/24 Rx tablet,extended release 24 hr (Toprol XL) levocetirizine 5 mg tablet 5 mg PO DAILY #90 tabs 07/09/24 08/05/24 Rx meloxicam 15 mg tablet 15 mg PO DAILY #90 tabs 07/09/24 08/05/24 Rx pseudoephedrine HCl 30 mg tablet 60 mg (2 x 30 mg) PO Q6H PRN nasal 07/09/24 08/05/24 Rx congestion #60 tabs irbesartan 150 mg tablet 150 mg PO DAILY #30 tabs 07/29/24 08/05/24 Rx lidocaine 5 % topical patch 1 patch topical DAILY #30 ea 08/05/24 08/05/24 Rx methocarbamol 500 mg tablet 500 mg PO BID 08/05/24 08/05/24 History sennosides 8.6 mg tablet (senna) 8.6 mg PO DAILY PRN constipation 08/05/24 08/05/24 Rx #90 tabs New Prescriptions to Start Prescriptions: Allergies Allergy/AdvReac Type Severity Reaction Status Date / Time No Known Allergies Allergy Verified 08/05/24 10:01 Assessment and Plan *Assessment and plan (1) Degenerative disc disease: Status: Acute Category: Medical (2) Lumbar radiculopathy: Status: Acute Category: Medical Code(s): M54.16 - Radiculopathy, lumbar region (3) Lumbar spinal stenosis: Status: Acute Category: Medical Code(s): M48.061 - Spinal stenosis, lumbar region without neurogenic claudication Plan Patient is experiencing worsening pain in his low back with numbness and tingling into his lower extremities. Patient did have limited range of motion of his lumbar spine with a positive leg raise. I did discuss with patient that I do believe they would benefit from a lumbar epidural steroid injection. Risk and benefits were discussed with patient and the patient would like to proceed forward with this plan of care. Patient is not on any blood thinners. Patient has tried and failed conservative therapy including oral medications, heat and ice, topicals and continued at home stretching exercise for longer than 12 weeks. Patient has had chronic back pain for longer than 6 months. I did review over his most recent lumbar imaging that did show more significant narrowing at the L4-L5 level which does follow his pain into his lower extremities. Patient does have more significant pain along the left side versus the right. Patient has not had any lumbar epidurals. We will schedule the patient for an LESI L4-L5 under fluoroscopy. I will also refill the patient's methocarbamol for 750 mg 3 times daily and lidocaine 5% patches. Patient has been instructed to contact the clinic with any concerns before the next appointment. Dr. Moore has reviewed this note and agrees with this plan of care. This note was dictated using voice recognition software and make contain errors or omissions. All injections are used with Lidocaine, Bupivacaine and dexamethasone. Occasionally urine drug screen is needed to verify patient's compliance with our office pain contract. This is ordered based off specific treatments related to chronic pain with the potential to abuse certain medications.
[2024-08-26 13:57] VITALS: BP 113/71; PULSE 75; RESP 12; O2SAT 97; BMI 21.4
== END 2024-08-26 23:59 | disposition home or self-care (01) ==
PROVIDERS: PCP Nurse Practitioner Family; Visit Provider Nurse Practitioner Family
DX: M48.062 Spinal stenosis, lumbar region with neurogenic claudication (principal); Z98.890 Other specified postprocedural states; Z79.899 Other long term (current) drug therapy
CPT/HCPCS: 99212; G0463

== ENCOUNTER 2024-09-15 14:43 | Outpatient (RCR) | payer OTHER, SELFPAY ==
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
== END 2024-09-15 23:59 | disposition home or self-care (01) ==
LOC: PT 14:43
PROVIDERS: PCP Internal Medicine; Visit Provider Nurse Practitioner Family
DX: M54.16 Radiculopathy, lumbar region (principal)
CPT/HCPCS: 97110; 97162

== ENCOUNTER 2024-09-21 13:21 | Day surgery (SDC) | payer OTHER, SELFPAY ==
[2024-09-21 13:44] VITALS: BP 133/76; PULSE 57; RESP 18; O2SAT 100; BMI 22.1
--- NOTE | 2024-09-21 13:54 | EXP.PAIN.PRO ---
Procedure Date: 09/21/24 Time: 14:00 Anesthesiologist:: Vladimir Carballo CRNA Complications:: None Pre-procedure Diagnosis:: Degenerative disc lumbar spine multilevels. Lumbar radiculopathy. Post-procedure Diagnosis:: Same. Indications for Procedure:: Patient is a pleasant 63-year-old male who comes our clinic today for lumbar epidural steroid injection. Patient describes low lumbar back pain as constant, dull, aching. Patient reports bilateral hip and leg radicular symptoms at times. He rates his pain 7/10. Procedure Details:: Procedure: Lumbar epidural steroid injection under fluoroscopy Informed consent was obtained and the risks and benefits of the procedure were explained to the patient. The patient was taken to the procedure room and noninvasive monitors placed, including noninvasive blood pressure cuff and pulse oximeter. The back was viewed using C-arm Fluoroscopy and prepped using Chloraprep as a cleansing solution and the L4-L5 interspace was palpated. Skin and subcutaneous tissues were anesthetized using lidocaine 1.5% and a 25-gauge needle. After this, an 18-gauge Touhy epidural needle was placed into the L4-L5 interspace and advanced using fluoroscopic guidance and loss of resistance to air until the epidural space was encountered. After confirmation of needle placement in the epidural space, with dye, a solution containing normal saline, 3 mL and dexamethasone 10 mg were incrementally injected into the lumbar epidural space. The patient tolerated the procedure well with no complications. The patient was observed in the Pain Clinic and then discharged home neurologically intact. Plan and Disposition:: Patient was discharged without incident.
[2024-09-21 13:56] VITALS: BP 130/77; PULSE 63; RESP 18; O2SAT 96
[2024-09-21 14:02] VITALS: BP 133/76; PULSE 57; RESP 18; O2SAT 100
[2024-09-21] MEDS: DEXAMETHASONE 10MG/ML 1ML VIAL 10 MG (14:02)
[2024-09-21 14:04] VITALS: BP 133/76; PULSE 57; RESP 18; O2SAT 100
== END 2024-09-21 13:56 | disposition home or self-care (01) ==
PROVIDERS: PCP Nurse Practitioner Family; Visit Provider Nurse Anesthetist, Certified Registered
DX: M51.16 Intervertebral disc disorders with radiculopathy, lumbar region (principal); F41.9 Anxiety disorder, unspecified; E78.5 Hyperlipidemia, unspecified; J43.8 Other emphysema; F17.210 Nicotine dependence, cigarettes, uncomplicated; Z79.82 Long term (current) use of aspirin; Z79.899 Other long term (current) drug therapy
CPT/HCPCS: 64483; J1100

== ENCOUNTER 2024-10-06 12:59 | Outpatient (POV) | payer OTHER, SELFPAY ==
--- OUTSIDE RECORDS SUMMARY | 2024-10-06 13:03 | XMS_ITS | Clinical Summary ---
Author Organization [facility] Address [address] [place] [address] [place] [address] Phone Care Team Providers Care Operations Support Analyst Name Role Phone Nate Lester MD Primary Care Provider [phone] Allergies No known active allergies Medications Buprenorphine (BUTRANS) 20 MCG/HR PTWK Apply topically. Active atorvastatin (LIPITOR) 10 MG TABS Take 10 mg by mouth daily. Active hydrocodone-acet aminophen (LORTAB) 7.5-325 MG TABS Take 1 tablet by mouth every 6 (six) hours as needed. Active Active Problems Problem Noted Date Diagnosed Date Status post cervical spinal fusion 02/10/2020 [facility] ALLOWED: M50.322 DOI DDD degen disc dis c5-c6 12/15/2019 [facility] ALLOWED: M50.323 DOI Degeneration of intervertebral disc at C6-C7 level 12/15/2019 [facility] ALLOWED: S83.241A DOI tear med menisc knee right 12/15/2019 [facility] ALLOWED: S43.91XA DOI sprain shoulder/arm nos right shoulder 12/15/2019 [facility] ALLOWED: S83.91XA DOI Sprain of knee and leg, right, initial encounter 12/15/2019 [facility] ALLOWED: S13.4XXA DOI 05/27/2010 sprain of n connor 12/15/2019 [facility] ALLOWED: S33.5XXA DOI Sprain of lumbar region 12/15/2019 [facility] ALLOWED: M22.41 DOI 05/09 Chondromalacia of patella, right 12/15/2019 [facility] ALLOWED: M67.51 DOI 05/09 Plica syndrome of right knee 12/15/2019 [facility] ALLOWED: F32.9 DOI 05/27/2010 Depressive dis order 12/15/2019 [facility] ALLOWED: S23.3XXA DOI 05/27/2010 sprain thor acic region 12/15/2019 [facility] ALLOWED: S30.0XXA DOI 05/27/2010 back contus ion 12/15/2019 [facility] ALLOWED: M51.24 DOI 05/09 THORACIC DISC DISPLACEMENT T6-T7 12/15/2019 [facility] ALLOWED: M51.24 DOI 05/09 THORACIC DISC DISPLACEMENT T7-T8 12/15/2019 [facility] ALLOWED: M51.24 DOI 05/09 THORACIC DISC DISPLACEMENT T9-T10 12/15/2019 [facility] DISALLOWED: M47.817 DOI 05/27/2010 SUB AGG PE LUMBAR SPONDYLOSIS L4-L5 12/15/2019 [facility] DISMISSED: S82.141A DOOI 05/27/2010 CLOSED FX MEDIAL PORTION TIBIAL PLATEAU RT KNEE 12/15/2019 [facility] ALLOWED: M99.71 DOI 05/09 FORAMINAL STENOSIS [...] PCV) 11/18/2011 Shingrix (#1) 11/18/2011 Influenza Vaccine (#1) 2024 RSV Vaccine (60+ or ) (1 [...] patient's age to complete this topic Insurance [id number] [place] [id number] Care Teams Operations Support Analyst Relationship Specialty Start Date End Date Nate Lester MD PCP - General Pain Medicine 05/19/17
--- OUTSIDE RECORDS SUMMARY | 2024-10-06 13:03 | XMS_ITS | Clinical Summary ---
Author Organization Healthcare Address [address] [place] [address] Care Team Providers Care Senior Underwriter Name Role Phone Nate Ansari MD Primary Care Provider [phone] Social History Tobacco Use Types Packs/Day Years Used Date Smoking Tobacco: Never Assessed Sex and Gender Information Value Date Recorded Sex Assigned at Not on file Legal Sex Male 8:25 PM EDT Gender Identity Not on file Sexual Orientation Not on file Plan of Treatment Upcoming Encounters Date Type Department Care Team (Late st Contact Info) Description 11/05/2024 1:30 PM EDT Consult [facility] [address] [place] [address] River Conteh MD [address] [place] [address] Health Maintenance Due Date Last Done Comments [facility]-Depression Screening 1961 [facility]-HIV Screening 1961 [facility]-Hepatitis C Screening 1961 [facility]-Infant/Child/Adol SDOH Screenings 1961 [facility]- SDOH Screenings 11/18/1979 [facility]-Adult SDOH Screenings 11/18/1979 CT Colonography 2006 Colonoscopy 2006 FIT-DNA 2006 FIT 2006 FOBT 2006 Sigmoidoscopy 2006 [facility]-Colorectal Cancer Screening 2006 [facility]-Pneumococcal Vaccine: 50 + Years (1 of 1 - PCV) 11/18/2011 [facility]-Zoster Vaccines (1 of 2) 11/18/2011 [id number] Vaccine (1 - 20 24-25 season) 2023 [facility]-DTaP,Tdap,and Td Vaccine s (2 - Td or Tdap) 10/24/2024 10/24/2014 [facility]-Influenza Vaccine (#1) 2024 [facility]-RSV Vaccine: 60+ Years o r [...] Insurance [employer] Care Teams Senior Underwriter Relationship Specialty Start Date End Date Nate Ansari MD [address] [place] [address] PCP - General 07/21/20
--- OUTSIDE RECORDS SUMMARY | 2024-10-06 13:03 | XMS_ITS | Clinical Summary ---
Author Organization [facility] Address [address] [place], [place] [address] Phone Care Team Providers Care Cigar Tobacco Rehandler Name Role Phone Outside, Provider Unavailable [phone] Conditions or Problems No information available. Medications No information available. Medications Administered No information available. Allergies, Adverse Reactions, Alerts No information available. Results No information available. Plan of Care No information available. Procedures No information available. Vital Signs No information available. Immunizations No information available. Advance Directives No information available.
--- OUTSIDE RECORDS SUMMARY | 2024-10-06 13:03 | XMS_ITS | Referral Summary ---
Author Organization [facility] Address [address] [place] [address] [place] [address] Phone Care Team Providers Care Elementary Educator Name Role Phone Nate Lester MD Primary Care Provider + [phone] Allergies No known active allergies Medications Buprenorphine (BUTRANS) 20 MCG/HR PTWK Apply topically. Active atorvastatin (LIPITOR) 10 MG TABS Take 10 mg by mouth daily. Active hydrocodone-acet aminophen (LORTAB) 7.5-325 MG TABS Take 1 tablet by mouth every 6 (six) hours as needed. Active Active Problems Problem Noted Date Diagnosed Date Status post cervical spinal fusion 02/10/2020 [facility] ALLOWED: M50.322 DOI DDD degen disc dis c5-c6 12/15/2019 [facility] ALLOWED: M50.323 DOI Degeneration of intervertebral disc at C6-C7 level 12/15/2019 [facility] ALLOWED: S83.241A DOI tear med menisc knee right 12/15/2019 [facility] ALLOWED: S43.91XA DOI sprain shoulder/arm nos right shoulder 12/15/2019 [facility] ALLOWED: S83.91XA DOI Sprain of knee and leg, right, initial encounter 12/15/2019 [facility] ALLOWED: S13.4XXA DOI 05/27/2010 sprain of n connor 12/15/2019 [facility] ALLOWED: S33.5XXA DOI Sprain of lumbar region 12/15/2019 [facility] ALLOWED: M22.41 DOI 05/09 Chondromalacia of patella, right 12/15/2019 [facility] ALLOWED: M67.51 DOI 05/09 Plica syndrome of right knee 12/15/2019 [facility] ALLOWED: F32.9 DOI 05/27/2010 Depressive dis order 12/15/2019 [facility] ALLOWED: S23.3XXA DOI 05/27/[address]rain thor acic region 12/15/2019 [facility] ALLOWED: S30.0XXA DOI 05/27/2010 back contus ion 12/15/2019 [facility] ALLOWED: M51.24 DOI 05/09 THORACIC DISC DISPLACEMENT T6-T7 12/15/2019 [facility] ALLOWED: M51.24 DOI 05/09 THORACIC DISC DISPLACEMENT T7-T8 12/15/2019 [facility] ALLOWED: M51.24 DOI 05/09 THORACIC DISC DISPLACEMENT T9-T10 12/15/2019 [facility] DISALLOWED: M47.817 DOI 05/27/2010 SUB AGG PE LUMBAR SPONDYLOSIS L4-L5 12/15/2019 [facility] DISMISSED: S82.141A DOOI 05/27/2010 CLOSED FX MEDIAL PORTION TIBIAL PLATEAU RT KNEE 12/15/2019 [facility] ALLOWED: M99.71 DOI 05/09 FORAMINAL [...] Treatment Not on file Insurance WC [facility] PLUS Care Teams Elementary Educator Relationship Specialty Start Date End Date Nate Lester MD PCP - General Pain Medicine 05/19/17
--- OUTSIDE RECORDS SUMMARY | 2024-10-06 13:03 | XMS_ITS | Clinical Summary ---
Author Organization [facility] Address [address] [place] [id number] Care Team Providers Care Manager Shipping Name Role Phone None, None Primary Care [...] Treatment Not on file Insurance Care Teams Manager Shipping Relationship Specialty Start Date End Date None, None [address] [place] [address] PCP - General 03/30/14
[2024-10-06 13:21] VITALS: BP 111/76; PULSE 63; RESP 14; O2SAT 97; BMI 22.1
--- NOTE | 2024-10-06 13:21 | A.OFFVIS_ITS ---
[facility] Disclaimer: The information contained in this section may have been updated after the patient was seen, as this information can be updated by other users. Medical History Tobacco abuse Tobacco abuse counseling Smoking greater than 30 pack years Dyspnea on exertion Pulmonary emphysema Degenerative disc disease (DDD) of lumbosacral region with axial back pain without leg pain Cervical radiculopathy Neck pain Encounter to establish care Bilateral otitis media Viral respiratory illness Muscle strain of right wrist Back pain Low back pain STD exposure Muscle spasm Smoker Atypical angina Coronary artery disease Abnormal electrocardiogram [ECG] [EKG] Abnormal findings on diagnostic imaging of heart and coronary circulation Family history of coronary artery disease in mother Coronary artery calcification seen on CT scan Mood disorder Anxiety HLD (hyperlipidemia) Surgical History H/O hand surgery History of back surgery History of surgery on lower extremity H/O knee surgery H/O neck surgery Family History Other No significant family history Social History Smoking Status: Current every day smoker tobacco type: cigarettes packs per day: 1 second hand exposure: No alcohol intake: current alcohol intake frequency: holidays/special occasions only substance use type: former substance user, marijuana, opiates and other details: he states that he has tried just about everything at least once counseling given: No current occupational status: other Travel in the last 8 weeks?: None adopted: No caregiver/support person: No foster care: No household members: significant other housing: apartment lives independently: Yes number of children: 2 number of grandchildren: 1 PM Subjective & Objective Subjective Subjective:: Patient is a pleasant 63-year-old male who presents today for follow-up of his lumbar epidural steroid injection L4-L5 on 09/21/2024. Today he rates his pain an 8 out of 10. He denies any new trauma or injury. Patient does state that he did notice some improvement on the first day following this procedure however it was very short-lived and felt like it had already worn off within a day or 2. Patient denies any new falls or injuries. He does state that he did end up hearing from the neurosurgery referral we sent and that he is scheduled for that appointment on November 01. He denies any other changes. Patient was prescribed lidocaine patches and states they do seem to help a little. His Sedrick has been reviewed and is appropriate. Review of Systems: General: No recent weight changes, no fever, no sleep disturbances Respiratory: No cough, no shortness of air, no recurring pulmonary infections Cardiovascular/peripheral vascular: No chest pain, no palpitations, no edema, no shortness of breath Gastrointestinal: No new onset incontinence, normal bowel movements reported Genitourinary: No new onset incontinence Musculoskeletal: Low back pain, left leg numbness tingling Psychiatric: [Normal mood/affect] Neurological: [Denies weakness in extremities], [denies balance issues] Pain at rest (0-10 scale): 8 Objective Objective:: Physical Exam: General: Alert and oriented x3, no acute distress, pleasant and cooperative Lungs: Respirations even and unlabored, symmetrical chest expansion Eyes: PERRL Musculoskeletal: Flexion and extension of lumbar [spine] somewhat guarded secondary to pain, [antalgic gait noted] Neurological: Speech clear, no gross sensory deficit Has patient had previous pain injection?: Yes Percent improvement in pain since last injection: Only lasting 1 day Conservative treatment options previously tried: Home exercise plan Length of treatment: Longer than 12 weeks Meds Home Medications and Allergies Home Medications ?Medication ?Instructions ?Recorded ?Confirmed ?Type buprenorphine 8 mg-naloxone 2 mg 1 tab sublingual BID Pain 12/10/21 09/21/24 History sublingual tablet aspirin 81 mg tablet,delayed 81 mg PO DAILY #90 tabs 0 05/27/24 09/21/24 Rx release (Adult Low Dose Aspirin) atorvastatin 40 mg tablet (Lipitor) 40 mg PO DAILY #90 tabs 05/27/24 09/21/24 Rx multivitamin (One Daily 1 tab PO DAILY #90 tabs 03/09/21/24 Rx Multivitamin tablet) metoprolol succinate 25 mg 25 mg PO DAILY #90 tabs 09/21/24 Rx tablet,extended release 24 hr (Toprol XL) levocetirizine 5 mg tablet 5 mg PO DAILY #90 tabs 05/0 05/0409/21/24 Rx meloxicam 15 mg tablet 15 mg PO DAILY #90 tabs 05/0 05/0409/21/24 Rx pseudoephedrine HCl 30 mg tablet 60 mg (2 x 30 mg) PO Q6H PRN nasal 07/09/24 09/21/24 Rx congestion #60 tabs irbesartan 150 mg tablet 150 mg PO DAILY #30 tabs 09/21/24 Rx sennosides 8.6 mg tablet (senna) 8.6 mg PO DAILY PRN c onstipation 08/05/24 09/21/24 Rx #90 tabs methocarbamol 750 mg tablet 750 mg PO TID #90 tabs 09/21/24 Rx albuterol sulfate 90 mcg/actuation 2 inh inhalation QI D PRN shortness 09/15/24 09/21/24 Rx aerosol inhaler (Ventolin HFA) of breath or wheezing 9 0 days #8.5 grams azelastine 137 mcg (0.1 %) nasal 1 spray intranasal .q 6 PRN allergy 09/15/24 09/21/24 Rx spray symptoms 90 days #30 mL nicotine (polacrilex) 2 mg buccal 2 mg buccal Q4H PRN nicotine 09/15/24 09/21/24 Rx lozenge cravings #108 ea tiotropium bromide 18 mcg capsule 1 cap inhalation PETER LY 90 days #90 09/15/24 09/21/24 Rx with inhalation device (Spiriva caps with HandiHaler) lidocaine 5 % topical patch See Rx Instructions .Route 10/04/24 Rx .COMPLEX #30 patches New Prescriptions to Start Prescriptions: Allergies Allergy/AdvReac Type Severity Reaction Status Date / Time No Known Allergies Allergy Verified 09/15/24 13:34 Assessment and Plan *Assessment and plan (1) Degenerative disc disease: Status: Acute Category: Medical (2) Lumbar radiculopathy: Status: Acute Category: Medical Code(s): M54.16 - Radiculopathy, lumbar region (3) Lumbar spinal stenosis: Status: Acute Category: Medical Code(s): M48.061 - Spinal stenosis, lumbar region without neurogenic claudication Plan I did discuss with the patient in future it may be worthwhile to try the lumbar epidural injection 1 more additional time to see if it does provide longer relief. We will plan on continuing to follow-up after his neurosurgery appointment to see whether or not if they are recommending surgical intervention . I will order the patient a compounded cream. Patient will return to clinic after November 01 for reevaluation of symptoms and plan of care. Patient has been instructed to contact the clinic with any concerns before the next appointment. Dr. Moore has reviewed this note and agrees with this plan of care. This note was dictated using voice recognition software and make contain errors or omissions. All injections are used with Lidocaine, Bupivacaine and dexamethasone. Occasionally urine drug screen is needed to verify patient's compliance with our office pain contract. This is ordered based off specific treatments related to chronic pain with the potential to abuse certain medications.
== END 2024-10-06 23:59 | disposition home or self-care (01) ==
LOC: SC.PAIN 13:00
PROVIDERS: PCP Nurse Practitioner Family; Visit Provider Nurse Practitioner Family
DX: M51.16 Intervertebral disc disorders with radiculopathy, lumbar region (principal); M48.061 Spinal stenosis, lumbar region without neurogenic claudication; Z98.890 Other specified postprocedural states
CPT/HCPCS: 99212; G0463

== ENCOUNTER 2024-12-13 09:59 | Outpatient (CLI) | payer OTHER, SELFPAY ==
--- OUTSIDE RECORDS SUMMARY | 2024-12-03 11:20 | XMS_ITS | Encounter Summary ---
Author Organization [facility] Address [address] [place] [address] Care Team Providers Care Electrical Equipment Tester Name Role Phone Nate Ansari MD Primary Care Provider [phone] Reason for Visit * Consultation (Routine) - Closed Specialty Diagnoses / Procedures Referred By Franklin t Referred To Contact Neurosurgery Diagnoses Lumbar disc disease Benjamin Simmons MD [address] [address] Phone: tel: fax: [facility] [address], [address] [place] [address] Phone: tel: fax: Referral ID Status Reason Start Date Expiration Date V isits Requested Visits Authorized [id number] Closed Specialty Services Required 09/24/2024 03/26/2026 1 1 Encounter Details Date Type Department Care Team (Late st Contact Info) Description 12/03/2024 11:20 AM EDT Consult [facility] [address], [address] [place] [address] Mandi Frank PA [address] [address] Spinal stenosis of lumbar region with neurogenic claudication (Primary Dx); Lumbar spondylosis Social History Tobacco Use Types Packs/Day Years [...] 10:58 AM EDT documented in this encounter Plan of Treatment [...] Km Hansen MD on 52:11 PM Mandi GRANADO IMG XR PROCEDURES Final Result documented in this encounter Visit Diagnoses Diagnosis Spinal stenosis of lumbar region with neurogenic claudication- Primary Lumbar spondylosis Lumbosacral spondylosis without myelopathy Spinal stenosis of lumbar region with neurogenic claudication Lumbar spondylosis Lumbosacral spondylosis without myelopathy documented in this encounter Additional Health Concerns Assessment Noted Time A fall risk assessment has been complete d for the patient 12/03/2024 11:07 AM EDT documented as of this encounter Care Teams Electrical Equipment Tester Relationship Specialty Start Date End Date Nate Ansari MD [address] [place] [address] PCP - General 07/21/20 documented as of this encounter
--- OUTSIDE RECORDS SUMMARY | 2024-12-03 12:23 | XMS_ITS | Encounter Summary ---
Author Organization Healthcare Address [address] [id number] Care Team Providers Care Suspect Artist Supervisor Name Role Phone Nate Ansari MD Primary Care Provider [phone] Encounter Details Date Type Department Care Team (Latest Contact Info) Description 12/03/2024 12:23 PM EDT - 12/03/2024 11:59 PM EDT Hospital Encounter [place] [facility] [address], [address] [place] [phone] Spinal stenosis of lumbar region with neurogenic [...] documented as of this encounter Care Teams Suspect Artist Supervisor Relationship Specialty Start Date End Date Nate Ansari MD [address] [place] [address] PCP - General 07/21/20 documented as of this encounter
--- OUTSIDE RECORDS SUMMARY | 2024-12-13 10:05 | XMS_ITS | Encounter Summary ---
Author Organization Healthcare Address [address] [place] [address] Care Team Providers Care Training Systems Officer Name Role Phone Nate Ansari MD Primary Care Provider [phone] Encounter Details Date Type Department Care Team ([facility] st Contact Info) Description 08/19/2024 Orders Only External Location [address] [place] [address] Provider, External Social History Tobacco Use Types Packs/Day Years Used Date Smoking Tobacco: Never Assessed Sex and Gender Information Value Date Recorded Sex Assigned at Not on file Legal Sex Male 8:25 PM EDT Gender Identity Not on file Sexual Orientation Not on file documented as of this encounter Plan of Treatment Not on file documented as of this encounter Procedures Procedure Name Priority Date/Time Associated Diagnosis Comments MR NEURO OUTSIDE IMAGES 08/19/2024 2:20 PM EDT documented in this encounter Results * MR NEURO OUTSIDE IMAGES (08/19/2024 2:20 PM EDT) Anatomical Region Laterality Modality Magnetic Resonan ce 08/19/2024 2:20 PM EDT us External Provider IMG MRI PROCEDURES Edited Resu lt - Final documented in this encounter Visit Diagnoses Not on filedocumented in this encounter Care Teams Training Systems Officer Relationship Specialty Start Date End Date Nate Ansari MD [address] [place] [address] PCP - General 07/21/20 documented as of this encounter
--- OUTSIDE RECORDS SUMMARY | 2024-12-13 10:05 | XMS_ITS | Clinical Summary ---
Author Organization [facility] Address [address] [place] [address] Care Team Providers Care Development Disability Specialist Name Role Phone Nate Ansari MD Primary Care Provider [phone] Allergies Active Allergy Reactions Criticality Noted Date Comments Rosuvastatin Other - please docum ent in the comment field Low 03/09/2024 Medications meloxicam (Mobic) 15 MG tablet TAKE ONE TABLET BY MOUTH ONCE DAILY NEEDED FOR 90 DAYS Active ASPIRIN 81 MG chewable tablet CHEW & SWALLOW ONE TABLET BY MOUTH EVERY DAY Active buprenorphine-n aloxone (Suboxone) 8-2 MG SL tablet DISSOLVE 2 TABLETS UNDER THE TONGUE ONCE DAILY DIRECTED Active Ventolin HFA 108 (90 Base) MCG/ACT inhaler INHALE TWO PUFFS BY MOUTH EVERY 4 HOURS NEEDED Active atorvastatin (Lipitor) 40 MG tablet Take 1 tablet by mouth daily. 5 Active irbesartan (Avapro) 150 MG tablet Take 1 tablet by mouth daily. 5 Active metoprolol succinate XL (Toprol-XL) 25 MG 24 hr tablet Take 1 tablet by mouth daily. 4 Active lidocaine (Lidoderm) 5 % patch APPLY 1 PATCH TOPICALLY TO THE AFFECTED AREA ONCE DAILY AND LEAVE IN PLACE FOR 12 HOURS, THEN REMOVE AND LEAVE OFF FOR 12 HOURS use ON most painful AREA 5 Active Docusate Sodium (DSS) 100 MG capsule Take 1 capsule by mouth 2 times a day as needed. Active senna (Senokot) 8.6 MG tablet TAKE ONE TABLET BY MOUTH EVERY DAY NEEDED FOR constipation 5 Active Multiple Vitamin (Multivitamin) tablet Take 1 tablet by mouth daily. 5 Active methocarbamol (Robaxin) 500 MG tablet Take 1 tablet by mouth 2 times a day as needed. Active Azelastine HCl 137 MCG/SPRAY solution INSTILL ONE SPRAY IN EACH NOSTRIL EVERY 6 HOURS NEEDED FOR FOR ALLERGY SYMPTOMS Active levocetirizine (Xyzal) 5 MG tablet Take by mouth every evening. Active phenylephrine (Sudafed PE) 10 MG tablet Take 1 tablet by mouth every 4 hours as needed for congestion. Active Encounters Date Type Department Care Team Description 12/03/2024 12:23 PM EDT - 12/03/2024 11:59 PM EDT Hospital Encounter [facility] Radiology [address], [address]st [place] [address] Spinal stenosis of lumbar region with neurogenic claudication; Lumbar spondylosis Discharge Disposition: Home or Self Care 12/03/2024 11:20 AM EDT Consult [facility] [address], [address]st [place] [address] Mandi Frank PA Spinal stenosis of lumbar region with neurogenic claudication (Primary Dx); Lumbar spondylosis 12/03/2024 Travel 10/28/2024 Telephone [facility] [address], [address] [place] [address] River Conteh MD HCN - Patient Message (Return call) from Last 3 Months Social History Tobacco Use Types Packs/Day Years [...] Mass Index 22.37 12/03/2024 10:58 AM EDT Plan of Treatment Health Maintenance Due Date Last Done Comments [facility]-Depression Screening 1961 [facility]-HIV Screening 1961 [facility]-Hepatitis C Screening 1961 [facility]-/Child/Adol SDOH Screenings 1961 [facility]- SDOH Screenings 11/18/1979 [facility]-Adult SDOH Screenings 11/18/1979 [facility]-Pneumococcal Vaccine: 50 + Years (1 of 2 - PCV) 1980 CT Colonography 2006 Colonoscopy 2006 FIT-DNA 2006 FIT 2006 FOBT 2006 Sigmoidoscopy 2006 [facility]-Colorectal Cancer Screening 2006 [facility]-Zoster Vaccines (1 of 2) 11/18/2011 [facility]-DTaP,Tdap,and Td Vaccine s (2 - Td or Tdap) 10/24/2024 10/24/2014 [id number] Vaccine (1 - 20 24-25 season) 2024 [facility]-Influenza Vaccine (#1) 2024 [facility]-RSV Vaccine: 60+ [...] on patient's age to complete this topic Procedures Procedure Name Priority Date/Time Associated Diagnosis Comments XR LUMBAR SPINE 4 VIEWS TO INCLUDE FLEXION EXTENSION Routine 12/03/2024 12:42 PM EDT Spinal stenosis of lumbar region with neurogenic claudication Lumbar spondylosis from Last 3 Months Results * XR Lumbar Spine 4+ Views [...] Mandi GRANADO IMG XR PROCEDURES Final Result from Last 3 Months Insurance [employer] MEDICA[employer] Care Teams Development Disability Specialist Relationship Specialty Start Date End Date Nate Ansari MD [address] [place] [address] PCP - General 07/21/20
--- OUTSIDE RECORDS SUMMARY | 2024-12-13 10:05 | XMS_ITS | Clinical Summary ---
Author Organization [facility] Address [address] [place], [place] [id number] Phone Care Team Providers Care Fertilizer Processing Supervisor Name Role Phone Outside, Provider Unavailable [phone] Conditions or Problems No information available. Medications No information available. Medications Administered No information available. Allergies, Adverse Reactions, Alerts No information available. Results No information available. Plan of Care No information available. Procedures No information available. Vital Signs No information available. Immunizations No information available. Advance Directives No information available.
--- OUTSIDE RECORDS SUMMARY | 2024-12-13 10:05 | XMS_ITS | Clinical Summary ---
Author Organization [facility] Address [address] [place] [address] Care Team Providers Care Typing Secretary Name Role Phone None, None Primary Care [...] Treatment Not on file Insurance Care Teams Typing Secretary Relationship Specialty Start Date End Date None, None [address] [place] [address] PCP - General 03/30/14
--- OUTSIDE RECORDS SUMMARY | 2024-12-13 10:05 | XMS_ITS | Encounter Summary ---
Author Organization Healthcare Address [address] [place] [address] Care Team Providers Care Electronic Bench Technician Name Role Phone Nate Ansari MD Primary Care Provider [phone] Encounter Details Date Type Department Care Team (Latest Contact Info) Description 12/03/2024 Travel Social History Tobacco Use Types Packs/Day Years [...] on file documented as of this encounter Visit Diagnoses Not on filedocumented in this encounter Additional Health Concerns Assessment Noted Time A fall risk assessment has been complete d for the patient 12/03/2024 11:07 AM EDT documented as of this encounter Care Teams Electronic Bench Technician Relationship Specialty Start Date End Date Nate Ansari MD [address] [place] [address] PCP - General 07/21/20 documented as of this encounter
--- OUTSIDE RECORDS SUMMARY | 2024-12-13 10:05 | XMS_ITS | Encounter Summary ---
Author Organization Healthcare Address [address] [place] [address] Care Team Providers Care Engineering Group Leader Name Role Phone Nate Ansari MD Primary Care Provider [phone] Reason for Visit * Reason Onset Date Comments HCN - Patient Message 10/28/2024 Return toribio l Encounter Details Date Type Department Care Team (Late st Contact Info) Description 10/28/2024 Telephone [place] [facility] [address], [address] [place] [address] River Conteh MD [address] [place] [address] HCN - Patient Message (Return call) Social History Tobacco Use Types Packs/Day Years Used Date Smoking Tobacco: Never Assessed Sex and Gender Information Value Date Recorded Sex Assigned at Not on file Legal Sex Male 8:25 PM EDT Gender Identity Not on file Sexual Orientation Not on file documented as of this encounter Miscellaneous Notes * Telephone Encounter - Chikis Martin - 10/28/2024 10:48 AM EDT Spoke with and rescheduled for November to see Mandi. * Telephone Encounter - Jas Montemayor - 10/28/2024 9:39 AM EDT Patient Phone Message Reason for Call: requesting a call back to reschedule the patient's 11/05 appt to 2nd week in November Best contact number and optimal time of day to reach caller: Please call [phone] Note: Please do not reply to this message. Follow-up communication and further actions as a result of this message need to be communicated with the patient directly, if the patient is not active onMyChart. If the patient is active on MyChart, they will receive notification of the communication/outcome via MyChart. documented in this encounter Plan of Treatment Not on file documented as of this encounter Visit Diagnoses Not on filedocumented in this encounter Care Teams Engineering Group Leader Relationship Specialty Start Date End Date Nate Ansari MD [address] [place] [address] PCP - General 07/21/20 documented as of this encounter
--- OUTSIDE RECORDS SUMMARY | 2024-12-13 10:05 | XMS_ITS | Clinical Summary ---
Author Organization [facility] Address [address] [place] [address] [place] [address] Phone Care Team Providers Care Packing Line Operator Name Role Phone Nate Lester MD Primary Care Provider [phone] Allergies No known active allergies Medications Buprenorphine (BUTRANS) 20 MCG/HR PTWK Apply topically. Active atorvastatin (LIPITOR) 10 MG TABS Take 10 mg by mouth daily. Active hydrocodone-acet aminophen (LORTAB) 7.5-325 MG TABS Take 1 tablet by mouth every 6 (six) hours as needed. Active Active Problems Problem Noted Date Diagnosed Date Status post cervical spinal fusion 02/10/2020 [facility] ALLOWED: M50.322 DOI DDD degen disc dis c5-c6 12/15/2019 [facility] ALLOWED: M50.323 DOI Degeneration of intervertebral disc at C6-C7 level 12/15/2019 [facility] ALLOWED: S83.241A DOI tear med menisc knee right 12/15/2019 [facility] ALLOWED: S43.91XA DOI sprain shoulder/arm nos right shoulder 12/15/2019 [facility] ALLOWED: S83.91XA DOI Sprain of knee and leg, right, initial encounter 12/15/2019 [facility] ALLOWED: S13.4XXA DOI 05/27/2010 sprain of n connor 12/15/2019 [facility] ALLOWED: S33.5XXA DOI Sprain of lumbar region 12/15/2019 [facility] ALLOWED: M22.41 DOI 05/09 Chondromalacia of patella, right 12/15/2019 [facility] ALLOWED: M67.51 DOI 05/09 Plica syndrome of right knee 12/15/2019 [facility] ALLOWED: F32.9 DOI 05/27/2010 Depressive dis order 12/15/2019 [facility] ALLOWED: S23.3XXA DOI 05/27/2010 sprain thor acic region 12/15/2019 [facility] ALLOWED: S30.0XXA DOI 05/27/2010 back contus ion 12/15/2019 [facility] ALLOWED: M51.24 DOI 05/09 THORACIC DISC DISPLACEMENT T6-T7 12/15/2019 [facility] ALLOWED: M51.24 DOI 05/09 THORACIC DISC DISPLACEMENT T7-T8 12/15/2019 [facility] ALLOWED: M51.24 DOI 05/09 THORACIC DISC DISPLACEMENT T9-T10 12/15/2019 [facility] DISALLOWED: M47.817 DOI 05/27/2010 SUB AGG PE LUMBAR SPONDYLOSIS L4-L5 12/15/2019 [facility] DISMISSED: S82.141A DOOI 05/27/2010 CLOSED FX MEDIAL PORTION TIBIAL PLATEAU RT KNEE 12/15/2019 [facility] ALLOWED: M99.71 DOI 05/09 FORAMINAL [...] patient's age to complete this topic Insurance [address] [place] [id number] Care Teams Packing Line Operator Relationship Specialty Start Date End Date Nate Lester MD PCP - General Pain Medicine 05/19/17
[2024-12-13 10:55] VITALS: PULSE 66; PULSE 70
[2024-12-13] MEDS: ALBUTEROL 0.083% 2.5 MG/3 ML NEB IH (10:55)
== END 2024-12-13 23:59 | disposition home or self-care (01) ==
LOC: RT 10:00
PROVIDERS: PCP Internal Medicine; Visit Provider Internal Medicine Pulmonary Disease
DX: J44.9 Chronic obstructive pulmonary disease, unspecified (principal); R94.2 Abnormal results of pulmonary function studies
CPT/HCPCS: 94060; 94618; 94640; 94726; 94729

== ENCOUNTER 2025-01-19 12:33 | Outpatient (CLI) | payer OTHER, SELFPAY ==
--- OUTSIDE RECORDS SUMMARY | 2024-12-03 10:20 | XMS_ITS | Encounter Summary ---
Author Organization [facility] Address [address] [place] [address] Care Team Providers Care Road Commissioner Name Role Phone Nate Ansari MD Primary Care Provider [phone] Reason for Visit * Consultation (Routine) - Closed Specialty Diagnoses / Procedures Referred By Franklin t Referred To Contact Neurosurgery Diagnoses Lumbar disc disease Benjamin Simmons MD [address] [address] Phone: tel: fax: [facility] [address] [place] [address] Phone: tel: fax: Referral ID Status Reason Start Date Expiration Date V isits Requested Visits Authorized [id number] Closed Specialty Services Required 09/24/2024 03/26/2026 1 1 Encounter Details Date Type Department Care Team (Late st Contact Info) Description 12/03/2024 11:20 AM EDT Consult [facility] [address] [place] [address] Mandi Frank PA [address] [address] Spinal stenosis of lumbar region with neurogenic claudication (Primary Dx); Lumbar spondylosis; Chronic bilateral low back pain without sciatica; Radicular syndrome of left leg Social History Tobacco Use Types Packs/Day Years Used Date Smoking Tobacco: Every Day Cigarettes Smokeless Tobacco: Never Tobacco Cessation:Ready to Q uit: Not Asked; Counseling Given: Not Answered Alcohol Use Standard Drinks/Week Comments Never 0 (1 standard drink = 0.6 oz pur e alcohol) Sex and Gender Information Value Date Recorded Sex Assigned at Not on file Legal Sex Male 8:25 PM EDT Gender Identity Not on file Sexual Orientation Not on file documented as of this encounter Last Filed Vital Signs Vital Sign Reading Time Taken Comments Blood Pressure 146/82 12/03/2024 10:58 AM EDT Pulse - - Temperature - - Respiratory Rate - - Oxygen Saturation - - Inhaled Oxygen Concentration - - Weight 68.7 kg (151 lb 7.3 oz) 12/03/2024 10:58 AM EDT Height 175.3 cm (5' 9 ) 12/03/2024 10:58 AM EDT Body Mass Index 22.37 12/03/2024 10:58 AM EDT documented in this encounter Miscellaneous Notes * Progress Notes - Mandi Frank PA - 12/03/2024 11:20 AM EDT Benjamin Simmons MD We had the pleasure of seeing your patient in our clinic today for Neurosurgical consultation. I personally reviewed approximately 10 pages of new patient referral paperwork that was sent to the clinic which may have included imaging. Subjective Chief Complaint Low back and left leg History of Present Illness The patient presents for evaluation of low back pain. He has been experiencing lower back pain since 2010, following a work-related injury. Despite applying for disability, he did not receive it and had to return to work. His condition has progressivelyworsened, leading to severe mobility issues. He was bedridden by the end of July 2024, necessitatingan emergency room visit. Over the past few months, he has been able to move around without a cane, but any activity exacerbates his pain. The pain is constant and described as stinging, burning, and throbbing, radiating from his lower back down the front of his left leg into his calf, ankle, and foot, and even up to the back of his skull. He also experiences sharp, intense pain in his leg. He reports no numbness or tingling in his leg but mentions a general weakness in his body due to inactivity. He leans on a shopping cart for support when grocery shopping and can only walk for about 5 minutes before needing to rest. His sleep is disrupted due to discomfort when lying on his back or stomach, and he wakes up every hour to an hour and a half. Activities such as walking, lifting, and showering exacerbate his pain. He has undergone physical therapy, which unfortunately worsened his symptoms. He has received injections in his lower back, which provided some relief, with the last one administered in 09/2024. He is considering chiropractic treatment and is eager to return to work. He is cu rrently taking Suboxone, Lidoderm, and meloxicam for pain management. He was prescribed methocarbamol, but it caused hair loss and tingling sensations, so he discontinued its use. He has had two surgeries on his neck and still has a bulging disc at the top of his shoulders. He experiences stabbing pain in his thoracic region and lower back when he breathes. He has a 60% blockage in his heart and is under the care of a b2b sales consultant. Social History: Tobacco: The patient smokes cigarettes, currently reduced from 2 packs a day to half a pack a day. Sleep: The patient reports disrupted sleep, waking up every hour to an hour and a half. FAMILY HISTORY The patient's sister has arthritis. Presenting symptoms include low back pain across his low back. He states it is constant. He states it is fire, stinging, throbbing. He reports left leg pain. He states the pain comes around his hip to his anterior thigh. He states it continues to the anterior estevez. It does go to the top of the foot. He states it does not involve any toes. He describes it as sharp. He states no numbness or tingling. He does report positive shopping cart sign. No symptoms right leg. These symptoms are provoked by walking, lying for sleep, lifting, general activity. Symptoms are alleviated with rest. Limitation to daily activities include sleep interruption, ADLs. Walk getting tolerance is 5 minutes or less. No change bowel/bladder function. Denies saddle anesthesia. Past Medical History as of 12/16/2024 10:21 PM Diagnosis Date Arthritis Broken ribs patients states has a history of broken ribs Concussion COPD (chronic obstructive pulmonary disease) ([facility]) Degenerative lumbar disc High cholesterol Hypertension Seasonal allergies Allergies as of 12/16/2024 10:21 PM Allergen Reactions Rosuvastatin Other - please document in the comment field Past Surgical History as of 12/16/2024 10:21 PM Procedure Laterality Date CERVICAL SPINE SURGERY KNEE SURGERY Bilateral LEG SURGERY Right Family History as of 12/16/2024 10:21 PM No family history on file Tobacco Use: High Risk (12/03/2024) Patient History Smoking Tobacco Use: Every Day Smokeless Tobacco Use: Never Passive Exposure: Not on file They report absence of autonomic deficits, no falls, no constitutional symptoms. No loss or change of bowel or bladder function. Non-surgical management as below, and have been exhausted to the options the patient is amenable toattempting. Prior Treatments (for the current issue): Injections: Multiple. Last was September 2024. He does report mild relief PT/Chiro: Completed 6 weeks. He states symptoms were worse Medications: Meloxicam 15 mg daily. Lidoderm patch. Surgery: Not for this issue Objective Review of Systems 14 point review of systems was performed and was negative except as noted per HPI. Visit Vitals BP (!) 146/82 (BP Location: Left arm, Patient Position: Sitting) Ht 1.753 m (5' 9 ) Wt 68.7 kg (151 lb 7.3 oz) BMI 22.37 kg/m?? General Physical Exam Constitutional No acute distress. Patient is appropriate historian and cooperative throughout exam.Well nourished, well groomed. Alert and oriented x4. Head Normocephalic and atraumatic. Eyes Pupils are equal, round, and reactive to light. Neck No tracheal deviation or JVD noted. No previous surgical scars Cardiovascular Minimal to no peripheral edema, intact distal pulses Pulmonary/Chest No increased effort noted, no shortness of breath Neurological Alert and oriented to person, place, and time Skin Skin is warm and dry Psychiatric Normal mood and affect, behavior and judgment MUSCULOSKELETAL EXAM: Upper Extremity Motor Strength Right Left C5: Deltoid 5/5 5/5 C6: Biceps 5/5 5/5 C7: Triceps 5/5 5/5 C8: Electronics System Mechanic 5/5 5/5 T1: Intrinsics 5/5 5/5 Lower Extremity Motor Strength Right Left L2: Hip flexion (Iliopsoas) 5/5 5/5 L3: Knee extension (Quad) 5/5 5/5 L4: Ankle DF (TA) 5/5 5/5 L5: Great Toe DF (EHL) 5/5 5/5 S1: Ankle Pf, Foot Eversion (Peroneal longus/brevis) 07/12 07/12 S2: Great toe flexion (FHL), Knee flexion 07/12 07/12 Sensation Right Left L2: Proximal anterior thigh Normal Normal L3: Mid anterior thigh Normal Normal L4: Medial leg/foot, great toe (Saphenous n.) Normal Normal L5: Dorsum of mid foot Normal Normal S1: Lateral leg/foot, little toe, Back of leg (Sural n.) Normal Normal Reflexes Right Left C5: Biceps 2/4 2/ C6: Brachialis /4 2/4 C7: Triceps /4 2/4 L4: Patellar /06 09/ S1: Achilles /06 09/ SLR Negative Negative Clonus Negative Negative Hoffmans Negative Negative He did report increased pain with tandem Results Imaging - MRI of the lumbar spine: Degenerative disc disease with disc herniation at L4- L5 causing moderatecentral canal stenosis and mild bilateral foraminal stenosis. There is also disc bulging at L3-L4 with mild central canal stenosis. Flexion-extension x-ray lumbar spine December 03, 2024: FINDINGS: Overlying bowel gas and content limit the evaluation of the exam. Left lumbar spine curvature. Grade 1 retrolisthesis L1 on L2, L2 on L3 and L3 on L4. No dynamic instability. Multilevel disc space narrowing. Moderate multilevel degenerative changes in the lumbar spine, better seen on prior MRI. Vascular calcifications. I have personally viewed and interpreted the pertinent diagnostic images related to this encounter as well as report if available. I have shared the images with patient/family if available. Assessment & Plan 1. Chronic low back pain with radicular symptoms. - Chronic low back pain with radicular symptoms in the left leg has progressively worsened since 2010 following a work-related injury. The pain is described as stinging, burning, and throbbing, radiating from the lower back to the left calf, estevez, and foot. - Previous treatments include physical therapy and injections, which provided limited relief. The last injection was administered in 09/2024. - MRI findings indicate degenerative disc disease with disc herniation at L4-L5 causing moderate central canal stenosis and mild bilateral foraminal stenosis, and disc bulging at L3-L4 with mild central canal stenosis. - X-rays will be obtained today to assess for any instability in the vertebrae. - Referral to a spine surgeon for further evaluation and potential surgical intervention will be made. Possible surgeons include Dr. Arias or Dr. Lenz. - Patient education includes the importance of quitting smoking to improve surgical outcomes and ensure insurance coverage for surgery. Smoking cessation strategies were discussed, including the use of nicotine-free vapes, lozenges, and cinnamon sticks to manage cravings. Nicotine must be completely eliminated for 6 weeks prior to surgery. - Strengthening exercises were provided, with instructions to avoid any exercises that cause pain. Walking is encouraged, but caution is advised to prevent falls. 2. Sleep disturbances due to pain. - Difficulty sleeping due to inability to lie on the back or stomach, resulting in waking up every hour to hour and a half. - Patient education includes managing sleep disturbances by finding comfortable positions and possibly using supportive pillows. 3. Muscle relaxant side effects. - Methocarbamol was previously prescribed but caused significant side effects, including hair loss,itching, and tingling. - Discontinuation of methocarbamol has resolved these side effects. 4. Smoking cessation. - Smoking cessation is crucial for surgical outcomes and insurance coverage. The patient has reduced smoking from 2 packs a day to half a pack a day. - Nicotine-free alternatives and cessation aids were discussed, including nicotine-free vapes, lozenges, and cinnamon sticks. 5. Referral to spine surgeon. - Referral to a spine surgeon for further evaluation and potential surgical intervention will be made. Possible surgeons include Dr. Arias or Dr. Lenz. 6. Diagnostic imaging. - X-rays will be obtained today to assess for any instability in the vertebrae. The patient will bedirected to radiology for imaging. 7. Strengthening exercises. - Strengthening exercises were provided, with instructions to avoid any exercises that cause pain. Walking is encouraged, but caution is advised to prevent falls. 8. Patient education. - Comprehensive patient education was provided regarding the importance of quitting smoking, managing sleep disturbances, and the potential benefits and risks of surgical intervention. Detailed explanations of the spinal anatomy and the impact of degenerative disc disease were given to help the patient understand his condition and treatment options. Red flag symptoms to watch for were discussed. Patient and/or family were instructed to contact theclinic sooner for any changes, worsening or other concerns. Patient and/or family voiced understanding and agreement with plan. Patient and/or family were given opportunity to ask questions which were answered to best of ability and to their satisfaction. Mandi Frank PA-C [facility] Department of Neurosurgery Thank you for allowing us to be a part of your patient's care. Please do not hesitate [facility] if there are any questions or concerns. This note was dictated using voice to text software and may contain minor documented in this encounter Plan of Treatment Not on file documented as of this encounter Results * XR Lumbar Spine 4+ Views w Flexion Extension (12/03/2024 12:42 PM EDT) Anatomical Region Laterality Modality Spine, L-spine Digital Radiogra phy Impressions 12/03/2024 2:11 PM EDT No acute osseous findings. CRITICAL RESULT: No. COMMUNICATION: Per this written report. Drafted by Km Hansen MD on 12/03/2024 2:09 PM Final report signed by Km Hansen MD on 12/03/2024 2:11 PM Narrative 12/03/2024 2:11 PM EDT CLINICAL INDICATION: back pain TECHNIQUE: XR LUMBAR SPINE 4 VIEWS TO INCLUDE FLEXION EXTENSION COMPARISON: August 19, 2024 FINDINGS: Overlying bowel gas and content limit the evaluation of the exam. Left lumbar spine curvature. Grade 1 retrolisthesis L1 on L2, L2 on L3 and L3 on L4. No dynamic instability. Multilevel disc space narrowing. Moderate multilevel degenerative changes in the lumbar spine, better seen on prior MRI. Vascular calcifications. Procedure Note Km Morales MD - 12/03/2024 CLINICAL INDICATION: back pain TECHNIQUE: XR LUMBAR SPINE 4 VIEWS TO INCLUDE FLEXION EXTENSION COMPARISON: August 19, 2024 FINDINGS: Overlying bowel gas and content limit the evaluation of the exam. Left lumbar spine curvature. Grade 1 retrolisthesis L1 on L2, L2 on L3 andL3 on L4. No dynamic instability. Multilevel disc space narrowing. Moderate multilevel degenerative changes in the lumbar spine, better seenon prior MRI. Vascular calcifications. IMPRESSION: No acute osseous findings. CRITICAL RESULT: No. COMMUNICATION: Per this written report. Drafted by Km Hansen MD on 12/03/2024 2:09 PM Final report signed by Km Hansen MD on 52:11 PM Mandi Frank LOY IMG XR PROCEDURES Final Result documented in this encounter Visit Diagnoses Diagnosis Spinal stenosis of lumbar region with neurogenic claudication- Primary Lumbar spondylosis Lumbosacral spondylosis without myelopathy Chronic bilateral low back pain without sciatica Radicular syndrome of left leg Spinal stenosis of lumbar region with neurogenic claudication Lumbar spondylosis Lumbosacral spondylosis without myelopathy documented in this encounter Additional Health Concerns Assessment Noted Time A fall risk assessment has been complete d for the patient 12/03/2024 11:07 AM EDT A Body Mass Index follow-up plan has been documented for the patient 12/16/2024 10:29 PM EDT documented as of this encounter Care Teams Road Commissioner Relationship Specialty Start Date End Date Nate Ansari MD [address] [place] [address] PCP - General 07/21/20 documented as of this encounter
--- OUTSIDE RECORDS SUMMARY | 2024-12-03 11:23 | XMS_ITS | Encounter Summary ---
Author Organization Healthcare Address [address] [id number] Care Team Providers Care Board Writer Name Role Phone Nate Ansari MD Primary Care Provider [phone] Encounter Details Date Type Department Care Team (Latest Contact Info) Description 12/03/2024 12:23 PM EDT - 12/03/2024 11:59 PM EDT Hospital Encounter [facility] [address], [address] [place] [phone] Spinal stenosis of lumbar region with neurogenic claudication; Lumbar spondylosis Discharge Disposition: Home or Self Care Social History Tobacco Use Types Packs/Day Years Used Date Smoking Tobacco: Every Day Cigarettes Smokeless Tobacco: Never Alcohol Use Standard Drinks/Week Comments Never 0 (1 standard drink = 0.6 oz pur e alcohol) Sex and Gender Information Value Date Recorded Sex Assigned at Not on file Legal Sex Male 8:25 PM EDT Gender Identity Not on file Sexual Orientation Not on file documented as of this encounter Medications at Time of Discharge ASPIRIN 81 MG chewable tablet CHEW & SWALLOW ONE TABLET BY MOUTH EVERY DAY atorvastatin (Lipitor) 40 MG tablet Take 1 tablet by mouth daily. 03/22/2024 Azelastine HCl 137 MCG/SPRAY solution INSTILL ONE SPRAY IN EACH NOSTRIL EVERY 6 HOURS NEEDED FOR FOR ALLERGY SYMPTOMS 11/10/2024 buprenorphine-na loxone (Suboxone) 8-2 MG SL tablet DISSOLVE 2 TABLETS UNDER THE TONGUE ONCE DAILY DIRECTED Docusate Sodium (DSS) 100 MG capsule Take 1 capsule by mouth 2 times a day as needed. irbesartan (Avapro) 150 MG tablet Take 1 tablet by mouth daily. 11/23/2024 levocetirizine (Xyzal) 5 MG tablet Take by mouth every evening. lidocaine (Lidoderm) 5 % patch APPLY 1 PATCH TOPICALLY TO THE AFFECTED AREA ONCE DAILY AND LEAVE IN PLACE FOR 12 HOURS, THEN REMOVE AND LEAVE OFF FOR 12 HOURS use ON most painful AREA 10/04/2024 meloxicam (Mobic) 15 MG tablet TAKE ONE TABLET BY MOUTH ONCE DAILY NEEDED FOR 90 DAYS methocarbamol (Robaxin) 500 MG tablet Take 1 tablet by mouth 2 times a day as needed. metoprolol succinate XL (Toprol-XL) 25 MG 24 hr tablet Take 1 tablet by mouth daily. 03/09/2024 Multiple Vitamin (Multivitamin) tablet Take 1 tablet by mouth daily. 11/23/2024 phenylephrine (Sudafed PE) 10 MG tablet Take 1 tablet by mouth every 4 hours as needed for congestion. senna (Senokot) 8.6 MG tablet TAKE ONE TABLET BY MOUTH EVERY DAY NEEDED FOR constipation 11/10/2024 Ventolin HFA 108 (90 Base) MCG/ACT inhaler INHALE TWO PUFFS BY MOUTH EVERY 4 HOURS NEEDED documented as of this encounter Plan of Treatment Not on file documented as of this encounter Procedures Procedure Name Priority Date/Time Associated Diagnosis Comments XR LUMBAR SPINE 4 VIEWS TO INCLUDE FLEXION EXTENSION Routine 12/03/2024 12:42 PM EDT Spinal stenosis of lumbar region with neurogenic claudication Lumbar spondylosis documented in this encounter Results * XR Lumbar Spine [...] documented as of this encounter Care Teams Board Writer Relationship Specialty Start Date End Date Nate Ansari MD [address] [place] [address] PCP - General 07/21/20 documented as of this encounter
--- OUTSIDE RECORDS SUMMARY | 2025-01-12 10:45 | XMS_ITS | Encounter Summary ---
Author Organization Healthcare Address [address] [place] [address] Care Team Providers Care Refinery Operator Reforming Unit Name Role Phone Nate Ansari MD Primary Care Provider [phone] Encounter Details Date Type Department Care Team (Late st Contact Info) Description 01/12/2025 10:45 AM EST Office Visit [place] [facility] [address], [address] [place] [address] Sushil Benson MD [address] [place] [address] Lumbar spondylosis (Primary Dx); Spinal stenosis of lumbar region with neurogenic claudication; Radicular syndrome of left leg Social History Tobacco Use Types Packs/Day Years Used Date Smoking Tobacco: Some Days Cigarettes Smokeless Tobacco: Never Tobacco Cessation:Ready to Q uit: Not Asked; Counseling Given: Not Answered Alcohol Use Standard Drinks/Week Comments Never 0 (1 standard drink = 0.6 oz pur e alcohol) PHQ-2 Answer Date Recorded Patient Health Questionnaire-2 Score 2 01/12/2025 Sex and Gender Information Value Date Recorded Sex Assigned at Not on file Legal Sex Male 8:25 PM EDT Gender Identity Not on file Sexual Orientation Not on file documented as of this encounter Last Filed Vital Signs Vital Sign Reading Time Taken Comments Blood Pressure 132/82 01/12/2025 11:15 AM EST Pulse 68 01/12/2025 11:15 AM EST Temperature - - Respiratory Rate - - Oxygen Saturation 97% 01/12/2025 11:15 AM EST Inhaled Oxygen Concentration - - Weight 70.3 kg (155 lb) 01/12/2025 11:15 AM EST Height 175.3 cm (5' 9 ) 01/12/2025 11:15 AM EST Body Mass Index 22.89 01/12/2025 11:15 AM EST documented in this encounter Functional Status * Over the past 2 weeks, how often have you been bothered by any of the following problems? Question Answer Date of Assessment Author Little interest or pleasure in doing things Not at all 01/12/2025 11:09 AM EST Cari Pedraza Feeling down, depressed, or hopeless More than half the days 01/12/2025 11:09 AM EST Cari Pedraza Patient Health Questionnaire-2 Score 2 01/12/2025 11:09 AM EST Cari Pedraza documented as of this encounter Plan of Treatment Not on file documented as of this encounter Visit Diagnoses Diagnosis Lumbar spondylosis- Primary Lumbosacral spondylosis without myelopathy Spinal stenosis of lumbar region with neurogenic claudication Radicular syndrome of left leg documented in this encounter Additional Health Concerns Assessment Noted Time A fall risk assessment has been complete d for the patient 01/12/2025 11:15 AM EST A Body Mass Index follow-up plan has been documented for the patient 01/12/2025 12:13 PM EST documented as of this encounter Care Teams Refinery Operator Reforming Unit Relationship Specialty Start Date End Date Nate Ansari MD [address] [place] [address] PCP - General 07/21/20 documented as of this encounter
--- OUTSIDE RECORDS SUMMARY | 2025-01-19 12:35 | XMS_ITS | Clinical Summary ---
Author Organization [facility] Address [address] [place], [place] [address] Phone Care Team Providers Care Retail Sales Representative Name Role Phone Outside, Provider Unavailable [phone] Conditions or Problems No information available. Medications No information available. Medications Administered No information available. Allergies, Adverse Reactions, Alerts No information available. Results No information available. Plan of Care No information available. Procedures No information available. Vital Signs No information available. Immunizations No information available. Advance Directives No information available.
--- OUTSIDE RECORDS SUMMARY | 2025-01-19 12:36 | XMS_ITS | Clinical Summary ---
Author Organization [facility] Address [address] [place] [address] Care Team Providers Care Bowstring Maker Name Role Phone Nate Ansari MD Primary Care Provider + [phone] Allergies Active Allergy Reactions Criticality Noted Date [...] 4 hours as needed for congestion. Active methocarbamol (Robaxin) 750 MG tablet Take 1 tablet by mouth 3 times a day. Active Aspirin Low Dose 81 MG EC tablet Take 1 tablet by mouth daily. Active nicotine (Nicoderm CQ) 21 MG/24HR patch APPLY 1 PATCH ON THE SKIN DAILY FOR 28 DAYS, THEN CONTINUE WITH 14MG PATCH FOR 14 DAYS THEN 7MG PATCH FOR 14 DAYS Active Active Problems No known active problems Encounters Date Type Department Care Team Description 01/12/2025 10:45 AM EST Office Visit [address], [address] [place] [phone] Sushil Benson MD Lumbar spondylosis (Primary Dx); Spinal stenosis of lumbar region with neurogenic claudication; Radicular syndrome of left leg 01/12/2025 Travel 12/03/2024 12:23 PM EDT - 12/03/2024 11:59 PM EDT Hospital Encounter [facility] Radiology [address] [facility], [address] [place] [phone] Spinal stenosis of lumbar region with neurogenic claudication; Lumbar spondylosis Discharge Disposition: Home or Self Care 12/03/2024 11:20 AM EDT Consult [place] [address], [address] [place] [phone] Mandi Frank PA Spinal stenosis of lumbar region with neurogenic claudication (Primary Dx); Lumbar spondylosis; Chronic bilateral low back pain without sciatica; Radicular syndrome of left leg 12/03/2024 Travel 10/28/2024 Telephone [place] [address], [address] [place] [phone] River Conteh MD HCN - Patient Message [...] Mass Index 22.89 01/12/2025 11:15 AM EST Plan of Treatment Health Maintenance Due Date Last Done Comments [facility]-HIV Screening 1961 [facility]-Hepatitis C Screening 1961 [...] (2 - Td or Tdap) 10/24/2024 10/24/2014 [id number] Vaccine (1 - 20 24-25 season) 2024 [facility]-Influenza Vaccine (#1) 2024 [facility]-Depression Screening 01/12/2026 01/12/2025 [facility]-RSV Vaccine: 60+ Years o r (1 [...] Final Result from Last 3 Months Insurance [facility] MEDICAID Care Teams Bowstring Maker Relationship Specialty Start Date End Date Nate Ansari MD [address] [place] [address] PCP - General 07/21/20
--- OUTSIDE RECORDS SUMMARY | 2025-01-19 12:36 | XMS_ITS | Clinical Summary ---
Author Organization [facility] Address [address] [place] [id number] Care Team Providers Care Mechanical Estimator Name Role Phone None, None Primary Care [...] Treatment Not on file Insurance Care Teams Mechanical Estimator Relationship Specialty Start Date End Date None, None [address] [place] [address] PCP - General 03/30/14
--- OUTSIDE RECORDS SUMMARY | 2025-01-19 12:36 | XMS_ITS | Clinical Summary ---
Author Organization [facility] Address [address] [place] [address] [place] [address] Phone Care Team Providers Care Termite Technician Name Role Phone Nate Lester MD Primary Care Provider + [phone] Allergies No known active allergies Medications Buprenorphine (BUTRANS) 20 MCG/HR PTWK Apply topically. Active atorvastatin (LIPITOR) 10 MG TABS Take 10 mg by mouth daily. Active hydrocodone-acet aminophen (LORTAB) 7.5-325 MG TABS Take 1 tablet by mouth every 6 (six) hours as needed. Active Active Problems Problem Noted Date Diagnosed Date Status post cervical spinal fusion 02/10/2020 [facility] ALLOWED: M50.322 DOI DDD degen disc dis c5-c6 12/15/2019 [facility] ALLOWED: M50.323 DOI Degeneration of intervertebral disc at C6-C7 level 12/15/2019 [facility] ALLOWED: S83.241A DOI tear med menisc knee right 12/15/2019 [facility] ALLOWED: S43.91XA DOI sprain shoulder/arm nos right shoulder 12/15/2019 [facility] ALLOWED: S83.91XA DOI Sprain of knee and leg, right, initial encounter 12/15/2019 [facility] ALLOWED: S13.4XXA DOI 05/27/2010 sprain of n connor 12/15/2019 [facility] ALLOWED: S33.5XXA DOI Sprain of lumbar region 12/15/2019 [facility] ALLOWED: M22.41 DOI 05/09 Chondromalacia of patella, right 12/15/2019 [facility] ALLOWED: M67.51 DOI 05/09 Plica syndrome of right knee 12/15/2019 [facility] ALLOWED: F32.9 DOI 05/27/2010 Depressive dis order 12/15/2019 [facility] ALLOWED: S23.3XXA DOI 05/27/[address]rain thor acic region 12/15/2019 [facility] ALLOWED: S30.0XXA DOI 05/27/2010 back contus ion 12/15/2019 [facility] ALLOWED: M51.24 DOI 05/09 THORACIC DISC DISPLACEMENT T6-T7 12/15/2019 [facility] ALLOWED: M51.24 DOI 05/09 THORACIC DISC DISPLACEMENT T7-T8 12/15/2019 [facility] ALLOWED: M51.24 DOI 05/09 THORACIC DISC DISPLACEMENT T9-T10 12/15/2019 [facility] DISALLOWED: M47.817 DOI 05/27/2010 SUB AGG PE LUMBAR SPONDYLOSIS L4-L5 12/15/2019 [facility] DISMISSED: S82.141A DOOI 05/27/2010 CLOSED FX MEDIAL PORTION TIBIAL PLATEAU RT KNEE 12/15/2019 [facility] ALLOWED: M99.71 DOI 05/09 FORAMINAL STENOSIS [...] patient's age to complete this topic Insurance [id number] [place] [id number] Care Teams Termite Technician Relationship Specialty Start Date End Date Nate Lester MD PCP - General Pain Medicine 05/19/17
--- OUTSIDE RECORDS SUMMARY | 2025-01-19 12:36 | XMS_ITS | Data Portability ---
Author Organization [employer] Address [address] [place] [address] Assessment Encounter Date Assessment Date Assessment LastModified by Organization Details LastModified Time 04/15/2023 04/15/2023 Patient presented for medication refill. Patient tolerating medication well at current dose without adverse effects. Refilled as below. Discussed plan with patient, who expressed understanding . Follow up as noted below. [place] [id number] Not available 04/15/2023 10:34:34 Plan of Treatment Reminders Order Date Submit Date Provider Last Modified By Organization Details Last Modified Time Details Appointments None recorded. Lab rapid flu (A+B) [address], [id number], 5 11:31:19 rapid SARS CoV 2 Ag, QL, [place], upper respiratory specimen [address], [address], 5 11:31:19 lipid panel, serum 2023 024 [facility], [address] [place] [address], [address], 4 06:12:31 CMP, serum or plasma 2023 024 [facility], [address] [place] [address], [address], 4 06:12:31 CBC w/ auto diff 2023 024 [facility] [address], [place], [address], 4 06:12:30 HbA1c (hemoglobin A1c), blood 2023 024 [facility]), [address], [place], [address], 4 06:12:32 noninvasive colorectal cancer DNA + occult blood screening, QL, stool 2023 024 [email or web address], [address], [address], [place], [address], 5 08:45:44 HbA1c (hemoglobin A1c), blood 2023 024 [facility], [address], [place], [address], 4 09:50:47 PSA, serum or plasma 2023 024 [facility], [address], [place], [address], 4 09:50:46 lipid panel, serum 2023 024 [facility], [address], [place], [address], 4 09:50:45 CBC w/ auto diff 2023 024 [facility], [address], [place], [address], 4 09:50:46 CMP, serum or plasma 2023 024 [facility], [address], [place], [address], 4 09:50:45 TSH, serum or plasma 2023 024 [facility], [address], [place], [address], 4 09:50:47 lipid panel, serum 2022 023 [facility], [address], [place], [address], 3 04:39:05 CMP, serum or plasma 2022 023 [facility], [address], [place], [address], 3 04:39:06 CBC w/ auto diff 2022 023 [facility], [address], [place], [address], 3 04:39:06 TSH, serum or plasma 2022 023 [facility], [address], [place], [address], 3 04:39:08 vitamin B12, serum 2022 023 [facility], [address], [place], [address], 3 04:39:07 vitamin D, 25-hydroxy, total, serum 2022 023 [facility], [address], [place], [address], 3 04:39:09 PSA, serum or plasma 2022 023 [facility], [address], [place], [address], 3 04:39:08 Referral None recorded. Procedures colonoscopy screening (PROC) - first available appt please 2022 023 vicente Yeboah MD, [address], [facility], [place], [address], 3 10:47:52 Surgeries None recorded. Imaging LDCT, chest, for lung cancer screening - Not Required; Procedure codes: 07954 Call Reference #: [id number] Resolution: Completed on 12/29/2023 at 11:22 am. Call ref #[id number]. [address] [facility] [address], [place], [address], 4 11:10:57 XR, lumbar spine 2022 023 [facility] Not available 15:34:30 Medication Orders albuterol sulfate HFA 90 mcg/actuati on aerosol inhaler 2024 025 [facility], [address] [place] [address], [address], 5 11:53:33 prednisone 20 mg tablet 2024 025 [facility], [address] [place] [address], [address], 5 11:53:34 Crestor 5 mg tablet 2023 024 [facility], [address] [place] [address], [address], 4 14:00:50 meloxicam 15 mg tablet 2023 024 [facility], [address] [place] [address], [address], 5 13:50:51 Daily Multi-Vitam in tablet 2023 024 [facility], [address] [place] [address], [address], 5 15:13:41 methocarbam ol 500 mg tablet 2023 024 [facility], [address] [place] [address], [address], 4 16:59:00 meloxicam 15 mg tablet 2023 024 [facility], [address] [place] [address], [address], 4 11:08:48 methocarbam ol 500 mg tablet 2023 024 [facility], [address] [place] [address], [address], 4 15:16:10 Daily Multi-Vitam in tablet 2023 024 [facility], [address] [place] [address], [address], 4 15:16:11 meloxicam 15 mg tablet 2023 024 [facility], [address] [place] [address], [address], 4 12:53:46 methocarbam ol 500 mg tablet 2023 024 [facility], [address] [place] [address], [address], 4 12:24:19 rosuvastati n 40 mg tablet 2023 024 [facility], [address] [place] [address], [address], 4 11:29:04 Daily Multi-Vitam in tablet 2023 024 [facility], [address] [place] [address], [address], 4 17:42:14 meloxicam 15 mg tablet 2022 023 [facility], [address] [place] [address], [address], 3 13:02:47 rosuvastati n 40 mg tablet 2022 023 [facility], [address] [place] [address], [address], 4 10:24:17 methocarbam ol 500 mg tablet 2022 023 [facility], [address] [place] [address], [address], 4 15:26:06 Patient TargetsNo targets recorded. Patient Instructions Encounter Date Encounter Id Patient Instructions Last Modified By Organization Details Last Modified Time 12/26/2023 [id number] statins: care instructions Not available 12/26/2023 17:00:20 Reason for Referral None Reported. Results Created Date Observation Date Name Description Value Unit Range Abnormal Flag Note LastModifiedBy Organization Detail LastModifiedTime 01/08/2001/08/2023 LIPID PANEL , STAND RISSA cholesterol, total 224 mg/dL <200 high Not Available [facility] [place] [facility] [address] [place], [address], 01/08/2023 06:16:19 01/08/2001/08/2023 LIPID PANEL , STAND RISSA HDL cholesterol 61 mg/dL > or = 40 normal Not Available [facility] [place] [facility] [address] [facility] [place], [address], 01/08/2023 06:16:19 01/08/20 23 01/08/2023 LIPID PANEL , STAND RISSA triglyceride s 208 mg/dL <150 high If a non-f astin g speci men was colle cted, consi bar repea t trigl yceri de testi ng on a fasti ng speci men if clini reina indic ated. Arthur gagnon et al. J. of Clin. Lipid ol. 2015; 9:129 -169. Not Available [facility] [place] [facility] [address], [place], [address], 01/08/2023 06:16:19 01/08/20 23 01/08/2023 LIPID PANEL , STAND RISSA LDL-choleste rol [...] 9): 2061- 2068 (http ://ed ucati on.Qu estDi [employer]. com/f aq/FA Q164) Not Available [facility] [place] [facility] [address], [place], [address], 01/08/2023 06:16:19 01/08/20 23 01/08/2023 LIPID PANEL , STAND RISSA chol/HDLC ratio 3.7 (calc ) <5.0 normal Not Available [facility] [place] [facility] [address], [place], [address], 01/08/2023 06:16:19 01/08/20 23 01/08/2023 LIPID PANEL , STAND RISSA non HDL cholesterol 163 mg/dL _(toribio c) <130 high For patie nts with diabe maria esther plus 1 major ASCVD risk facto r, treat ing to a non-H DL-C goal of <100 mg/dL (LDL- C of <70 mg/dL ) is maricruz fine optio n. Not Available [facility] [address] [place], [address], 01/08/2023 06:16:19 01/08/20 23 01/08/2023 COMPR EHENS PELON METAB OLIC PANEL glucose 96 mg/dL 65-139 normal Non-f astin g refer ence inter nani Not Available [facility] [address] [place], [address], 01/08/2023 06:16:20 01/08/20 23 01/08/2023 COMPR EHENS PELON METAB OLIC PANEL urea nitrogen (BUN) 23 mg/dL 7-25 normal Not Available [facility] [address] [place], [address], 01/08/2023 06:16:20 01/08/20 23 01/08/2023 COMPR EHENS PELON METAB OLIC PANEL creatinine 0.94 mg/dL 0.70-1 .35 normal Not Available [facility] [address] [place], [address], 01/08/2023 06:16:20 01/08/20 23 01/08/2023 COMPR EHENS PELON METAB OLIC PANEL eGFR 92 mL/mi n/1.7 3m2 > or = 60 normal Not Available [facility] [address] [place], [address], 01/08/2023 06:16:20 01/08/20 23 01/08/2023 COMPR EHENS PELON METAB OLIC PANEL BUN/creatini ne ratio SEE NOTE: (calc ) 6-22 Not Repor tg: BUN and Creat inine are withi n refer ence range . Not Available [facility] [address] [facility] [place], [address], 01/08/2023 06:16:20 01/08/2001/08/2023 COMPR EHENS PELON METAB OLIC PANEL sodium 143 mmol/ L 135-14 6 normal Not Available [facility] [address] [facility] [place], [address], 01/08/2023 06:16:20 01/08/20 23 01/08/2023 COMPR EHENS PELON METAB OLIC PANEL potassium 4.9 mmol/ L 3.5-5. 3 normal Not Available [facility] [address] [facility] [place], [address], 01/08/2023 06:16:20 01/08/20 23 01/08/2023 COMPR EHENS PELON METAB OLIC PANEL chloride 104 mmol/ L 98-110 normal Not Available [facility] [address] [facility] [place], [address], 01/08/2023 06:16:20 01/08/20 23 01/08/2023 COMPR EHENS PELON METAB OLIC PANEL carbon dioxide 31 mmol/ L 20-32 normal Not Available [facility] [address] [facility] [place], [address], 01/08/2023 06:16:20 01/08/20 23 01/08/2023 COMPR EHENS PELON METAB OLIC PANEL calcium 10.2 mg/dL 8.6-10 .3 normal Not Available [facility] [address] [place], [address], 01/08/2023 06:16:20 01/08/20 23 01/08/2023 COMPR EHENS PELON METAB OLIC PANEL protein, total 6.9 g/dL 6.1-8. 1 normal Not Available [facility] [address] [place], [address], 01/08/2023 06:16:20 01/08/20 23 01/08/2023 COMPR EHENS PELON METAB OLIC PANEL albumin 4.8 g/dL 3.6-5. 1 normal Not Available [facility] [address] [facility] [address] [place], [address], 01/08/2023 06:16:20 01/08/20 23 01/08/2023 COMPR EHENS PELON METAB OLIC PANEL globulin 2.1 g/dL_ (calc ) 1.9-3. 7 normal Not Available [facility] [address] [facility] [place], [address], 01/08/2023 06:16:20 01/08/20 23 01/08/2023 COMPR EHENS PELON METAB OLIC PANEL albumin/glob ulin ratio 2.3 (calc ) 1.0-2. 5 normal Not Available [facility] [address] [facility] [place], [address], 01/08/2023 06:16:20 01/08/20 23 01/08/2023 COMPR EHENS PELON METAB OLIC PANEL bilirubin, total 0.5 mg/dL 0.2-1. 2 normal Not Available [facility] [address] [facility] [place], [address], 01/08/2023 06:16:20 01/08/20 23 01/08/2023 COMPR EHENS PELON METAB OLIC PANEL alkaline phosphatase 62 U/L 35-144 normal Not Available [facility] [address] [place], [address], 01/08/2023 06:16:20 01/08/20 23 01/08/2023 COMPR EHENS PELON METAB OLIC PANEL AST 19 U/L 10-35 normal Not Available [facility] [address] [facility] [place], [address], 01/08/2023 06:16:20 01/08/20 23 01/08/2023 COMPR EHENS PELON METAB OLIC PANEL ALT 16 U/L 9-46 normal Not Available [facility] [place] [facility] [address] [place], [address], 01/08/2023 06:16:20 01/08/20 23 01/08/2023 CBC (INCL UDES DIFF/ PLT) white blood cell count 8.8 thous and/u L 3.8-10 .8 normal Not Available [facility] [address], [place], [address], 01/08/2023 04:39:06 01/08/2001/08/2023 CBC (INCL UDES DIFF/ PLT) red blood cell count 4.77 marivel on/uL 4.20-5 .80 normal Not Available [facility] [address], [place], [address], 01/08/2023 04:39:06 01/08/2001/08/2023 CBC (INCL UDES DIFF/ PLT) hemoglobin 14.9 g/dL 13.2-1 7.1 normal Not Available [facility] [place] [facility] [address], [place], [address], 01/08/2023 04:39:06 01/08/2001/08/2023 CBC (INCL UDES DIFF/ PLT) hematocrit 43.4 % 38.5-5 0.0 normal Not Available [facility] [address], [place], [address], 01/08/2023 04:39:06 01/08/2001/08/2023 CBC (INCL UDES DIFF/ PLT) MCV 91.0 fL 80.0-1 00.0 normal Not Available [facility] [address], [place], [address], 01/08/2023 04:39:06 01/08/2001/08/2023 CBC (INCL UDES DIFF/ PLT) MCH 31.2 pg 27.0-3 3.0 normal Not Available [facility] [place] [facility] [address], [place], [address], 01/08/2023 04:39:06 01/08/2001/08/2023 CBC (INCL UDES DIFF/ PLT) MCHC 34.3 g/dL 32.0-3 6.0 normal Not Available [facility] [place] [facility] [address], [place], [address], 01/08/2023 04:39:06 01/08/2001/08/2023 CBC (INCL UDES DIFF/ PLT) RDW 12.5 % 11.0-1 5.0 normal Not Available [facility] [place] [facility] [address], [place], [address], 01/08/2023 04:39:06 01/08/2001/08/2023 CBC (INCL UDES DIFF/ PLT) platelet count 274 thous and/u L 140-40 0 normal Not Available [facility] [place] [facility] [address], [place], [address], 01/08/2023 04:39:06 01/08/2001/08/2023 CBC (INCL UDES DIFF/ PLT) MPV 10.9 fL 7.5-12 .5 normal Not Available [facility] [place] [facility] [address], [place], [address], 01/08/2023 04:39:06 01/08/2001/08/2023 CBC (INCL UDES DIFF/ PLT) absolute neutrophils 5306 cells /uL 1500-7 800 normal Not Available [facility] [address] [place], [address], 01/08/2023 04:39:06 01/08/2001/08/2023 CBC (INCL UDES DIFF/ PLT) absolute lymphocytes 2306 cells /uL 850-39 00 normal Not Available [facility] [place] [facility] [address], [place], [address], 01/08/2023 04:39:06 01/08/2001/08/2023 CBC (INCL UDES DIFF/ PLT) absolute monocytes 704 cells /uL 200-95 0 normal Not Available [facility] [place] [facility] [address], [place], [address], 01/08/2023 04:39:06 01/08/2001/08/2023 CBC (INCL UDES DIFF/ PLT) absolute eosinophils 422 cells /uL 15-500 normal Not Available [facility] [place] [facility] [address], [place], [address], 01/08/2023 04:39:06 01/08/2001/08/2023 CBC (INCL UDES DIFF/ PLT) absolute basophils 62 cells /uL 0-200 normal Not Available [facility] [place] [facility] [address], [place], [address], 01/08/2023 04:39:06 01/08/2001/08/2023 CBC (INCL UDES DIFF/ PLT) neutrophils 60.3 % normal Not Available [facility] [place] [facility] [address], [place], [address], 01/08/2023 04:39:06 01/08/2001/08/2023 CBC (INCL UDES DIFF/ PLT) lymphocytes 26.2 % normal Not Available [facility] [place] [facility] [address], [place], [address], 01/08/2023 04:39:06 01/08/2001/08/2023 CBC (INCL UDES DIFF/ PLT) monocytes 8.0 % normal Not Available [facility] [place] [facility] [address], [place], [address], 01/08/2023 04:39:06 01/08/20 23 01/08/2023 CBC (INCL UDES DIFF/ PLT) eosinophils 4.8 % normal Not Available [facility] [place] [facility] [address] [place], [address], 01/08/2023 04:39:06 01/08/20 23 01/08/2023 CBC (INCL UDES DIFF/ PLT) basophils 0.7 % normal Not Available [facility] [place] [facility] [address] [place], [address], 01/08/2023 04:39:06 01/08/20 23 01/08/2023 VITAM IN B12 vitamin B12 617 pg/mL 200-11 00 normal Not Available [facility] [place] [facility] [address] [place], [address], 01/08/2023 07:02:17 01/08/2001/08/2023 PSA, TOTAL PSA, total [...] This test was perfo rmed using the Prefundia chemi lumin escen t metho d. Value s obtai tom from diffe rent assay metho ds canno t be used inter medrano eably . PSA level s, regar dless of value , shoul d not be inter prete d as absol mendy evide nce of the prese nce or absen ce of disea se. Not Available [facility] [place] [facility] [address] [place], [address], 01/08/2023 07:02:18 01/08/20 23 01/08/2023 TSH W/REF GAYLA TO FT4 TSH w/reflex to FT4 2.05 mIU/L 0.40-4 .50 normal Not Available [facility] [place] [facility] [address] [place], [address], 01/08/2023 07:02:18 01/08/20 23 01/08/2023 VITAM IN [...] /MS is recom ward d: order code 45854 (romana ents >2yrs ). See Note 1 Note 1 For addit ional infor rosalinda watson refer to http: //eliza Almanzar stDia gnost ics.c om/fa q/FAQ 199 (This link is being provi ded for infor marquita sanchez/ mely arceo ses only. ) Not Available [facility] [place] [facility] [address] [place], [address], 01/08/2023 07:02:19 09/26/19 24 09/27/2023 LIPID PANEL , STAND RISSA cholesterol, total 229 mg/dL <200 high Not Available [facility] [place] [facility] [address] [place], [address], 09/27/2023 09:50:45 09/26/19 24 09/27/2023 LIPID PANEL , STAND RISSA HDL cholesterol 69 mg/dL > or = 40 normal Not Available [facility] [place] [facility] [address] [place], [address], 09/27/2023 09:50:45 09/26/19 24 09/27/2023 LIPID PANEL , STAND RISAS triglyceride s 91 mg/dL <150 normal Not Available [facility] [place] [facility] [address] [facility], [place], [address], 09/27/2023 09:50:45 09/26/19 24 09/27/2023 LIPID PANEL [...] calcu lated using the Guillermina n-Hop kins shawnu eloisa n, which is a valid ated novel marilee pérez felicita r accur acy than the Fried ruthy equat ion in the estim ation of LDL-C . Guillermina larios SS et al. CLEMENTINA. 2013; 310(1 9): 2061- 2068 (http ://ed ucati on.Qu [place] [employer]. com/f aq/FA Q164) Not Available [facility] [place] [facility] [address] [place], [address], 09/27/2023 09:50:45 09/26/19 24 09/27/2023 LIPID PANEL , STAND RISSA chol/HDLC ratio 3.3 (calc ) <5.0 normal Not Available [facility] [place] [facility] [address] [place], [address], 09/27/2023 09:50:45 09/26/19 24 09/27/2023 LIPID PANEL , STAND RISSA non HDL cholesterol 160 mg/dL _(toribio c) <130 high For patie nts with diabe maria esther plus 1 major ASCVD risk facto r, treat ing to a non-H DL-C goal of <100 mg/dL (LDL- C of <70 mg/dL ) is consi dered a thera peuti c optio n. Not Available [facility] [address] [place], [address], 09/27/2023 09:50:45 09/26/19 24 09/27/2023 COMPR EHENS PELON METAB OLIC PANEL glucose 105 mg/dL 65-99 high Fasti ng refer ence inter nani For someo ne witho ut known diabe maria esther, a gluco se value betwe en 100 and 125 mg/dL is consi stent with predi abete s and shoul d be confi rmed with a follo w-up test. Not Available [facility] [address] [place], [address], 09/27/2023 09:50:45 09/26/19 24 09/27/2023 COMPR EHENS PELON METAB OLIC PANEL urea nitrogen (BUN) 26 mg/dL 7-25 high Not Available [facility] [address] [place], [address], 09/27/2023 09:50:45 09/26/19 24 09/27/2023 COMPR EHENS PELON METAB OLIC PANEL creatinine 1.02 mg/dL 0.70-1 .35 normal Not Available [facility] [address] [place], [address], 09/27/2023 09:50:45 09/26/19 24 09/27/2023 COMPR EHENS PELON METAB OLIC PANEL eGFR 84 mL/mi n/1.7 3m2 > or = 60 normal Not Available [facility] [address] [place], [address], 09/27/2023 09:50:45 09/26/19 24 09/27/2023 COMPR EHENS PELON METAB OLIC PANEL BUN/creatini ne ratio 25 (calc ) 6-22 high Not Available [facility] [place] [facility] [address] [place], [address], 09/27/2023 09:50:45 09/26/19 24 09/27/2023 COMPR EHENS PELON METAB OLIC PANEL sodium 141 mmol/ L 135-14 6 normal Not Available [facility] [address] [place], [address], 09/27/2023 09:50:45 09/26/19 24 09/27/2023 COMPR EHENS PELON METAB OLIC PANEL potassium 4.3 mmol/ L 3.5-5. 3 normal Not Available [facility] [address] [place], [address], 09/27/2023 09:50:45 09/26/19 24 09/27/2023 COMPR EHENS PELON METAB OLIC PANEL chloride 104 mmol/ L 98-110 normal Not Available [facility] [address] [place], [address], 09/27/2023 09:50:45 09/26/19 24 09/27/2023 COMPR EHENS PELON METAB OLIC PANEL carbon dioxide 26 mmol/ L 20-32 normal Not Available [facility] [address] [place], [address], 09/27/2023 09:50:45 09/26/19 24 09/27/2023 COMPR EHENS PELON METAB OLIC PANEL calcium 9.6 mg/dL 8.6-10 .3 normal Not Available [facility] [address] [place], [address], 09/27/2023 09:50:45 09/26/19 24 09/27/2023 COMPR EHENS PELON METAB OLIC PANEL protein, total 6.6 g/dL 6.1-8. 1 normal Not Available [facility] [address] [place], [address], 09/27/2023 09:50:45 09/26/19 24 09/27/2023 COMPR EHENS PELON METAB OLIC PANEL albumin 4.4 g/dL 3.6-5. 1 normal Not Available [facility] [address] [place], [address], 09/27/2023 09:50:45 09/26/19 24 09/27/2023 COMPR EHENS PELON METAB OLIC PANEL globulin 2.2 g/dL_ (calc ) 1.9-3. 7 normal Not Available [facility] [address] [place], [address], 09/27/2023 09:50:45 09/26/19 24 09/27/2023 COMPR EHENS PELON METAB OLIC PANEL albumin/glob ulin ratio 2.0 (calc ) 1.0-2. 5 normal Not Available [facility] [address] [place], [address], 09/27/2023 09:50:45 09/26/19 24 09/27/2023 COMPR EHENS PELON METAB OLIC PANEL bilirubin, total 0.4 mg/dL 0.2-1. 2 normal Not Available [facility] [address] [place], [address], 09/27/2023 09:50:45 09/26/19 24 09/27/2023 COMPR EHENS PELON METAB OLIC PANEL alkaline phosphatase 63 U/L 35-144 normal Not Available [facility] [address] [place], [address], 09/27/2023 09:50:45 09/26/19 24 09/27/2023 COMPR EHENS PELON METAB OLIC PANEL AST 20 U/L 10-35 normal Not Available [facility] [address] [place], [address], 09/27/2023 09:50:45 09/26/19 24 09/27/2023 COMPR EHENS PELON METAB OLIC PANEL ALT 16 U/L 9-46 normal Not Available [facility] [place] [facility] [address] [place], [address], 09/27/2023 09:50:45 09/26/19 24 09/27/2023 CBC (INCL UDES DIFF/ PLT) white blood cell count 8.0 thous and/u L 3.8-10 .8 normal Not Available [facility] [place] [facility] [address] [place], [address], 09/27/2023 09:50:46 09/26/19 24 09/27/2023 CBC (INCL UDES DIFF/ PLT) red blood cell count 4.70 marivel on/uL 4.20-5 .80 normal Not Available [facility] [address] [place], [address], 09/27/2023 09:50:46 09/26/19 24 09/27/2023 CBC (INCL UDES DIFF/ PLT) hemoglobin 14.2 g/dL 13.2-1 7.1 normal Not Available [facility] [address] [place], [address], 09/27/2023 09:50:46 09/26/19 24 09/27/2023 CBC (INCL UDES DIFF/ PLT) hematocrit 43.3 % 38.5-5 0.0 normal Not Available [facility] [place] [facility] [address] [place], [address], 09/27/2023 09:50:46 09/26/19 24 09/27/2023 CBC (INCL UDES DIFF/ PLT) MCV 92.1 fL 80.0-1 00.0 normal Not Available [facility] [address] [place], [address], 09/27/2023 09:50:46 09/26/19 24 09/27/2023 CBC (INCL UDES DIFF/ PLT) MCH 30.2 pg 27.0-3 3.0 normal Not Available [facility] [place] [facility] [address] [place], [address], 09/27/2023 09:50:46 09/26/19 24 09/27/2023 CBC (INCL UDES DIFF/ PLT) MCHC 32.8 g/dL 32.0-3 6.0 normal Not Available [facility] [place] [facility] [address] [place], [address], 09/27/2023 09:50:46 09/26/19 24 09/27/2023 CBC (INCL UDES DIFF/ PLT) RDW 12.9 % 11.0-1 5.0 normal Not Available [facility] [place] [facility] [address] [place], [address], 09/27/2023 09:50:46 09/26/19 24 09/27/2023 CBC (INCL UDES DIFF/ PLT) platelet count 280 thous and/u L 140-40 0 normal Not Available [facility] [place] [facility] [address] [place], [address], 09/27/2023 09:50:46 09/26/19 24 09/27/2023 CBC (INCL UDES DIFF/ PLT) MPV 10.2 fL 7.5-12 .5 normal Not Available [facility] [address] [place], [address], 09/27/2023 09:50:46 09/26/19 24 09/27/2023 CBC (INCL UDES DIFF/ PLT) absolute neutrophils 4352 cells /uL 1500-7 800 normal Not Available [facility] [place] [facility] [address] [place], [address], 09/27/2023 09:50:46 09/26/19 24 09/27/2023 CBC (INCL UDES DIFF/ PLT) absolute lymphocytes 2432 cells /uL 850-39 00 normal Not Available [facility] [place] [facility] [address] [place], [address], 09/27/2023 09:50:46 09/26/19 24 09/27/2023 CBC (INCL UDES DIFF/ PLT) absolute monocytes 664 cells /uL 200-95 0 normal Not Available [facility] [place] [facility] [address] [facility], [place], [address], 09/27/2023 09:50:46 09/26/19 24 09/27/2023 CBC (INCL UDES DIFF/ PLT) absolute eosinophils 480 cells /uL 15-500 normal Not Available [facility] [place] [facility] [address] [place], [address], 09/27/2023 09:50:46 09/26/19 24 09/27/2023 CBC (INCL UDES DIFF/ PLT) absolute basophils 72 cells /uL 0-200 normal Not Available [facility] [place] [facility] [address] [place], [address], 09/27/2023 09:50:46 09/26/19 24 09/27/2023 CBC (INCL UDES DIFF/ PLT) neutrophils 54.4 % normal Not Available [facility] [place] [facility] [address] [place], [address], 09/27/2023 09:50:46 09/26/19 24 09/27/2023 CBC (INCL UDES DIFF/ PLT) lymphocytes 30.4 % normal Not Available [facility] [place] [facility] [address] [place], [address], 09/27/2023 09:50:46 09/26/19 24 09/27/2023 CBC (INCL UDES DIFF/ PLT) monocytes 8.3 % normal Not Available [facility] [place] [facility] [address] [place], [address], 09/27/2023 09:50:46 09/26/19 24 09/27/2023 CBC (INCL UDES DIFF/ PLT) eosinophils 6.0 % normal Not Available [facility] [place] [facility] [address] [place], [address], 09/27/2023 09:50:46 09/26/19 24 09/27/2023 CBC (INCL UDES DIFF/ PLT) basophils 0.9 % normal Not Available [facility] [place] [facility] [address] [place], [address], 09/27/2023 09:50:46 09/26/19 24 09/27/2023 PSA, TOTAL [...] This test was perfo rmed using the [employer] chemi lumin escen t metho d. Value s obtai tom from diffe rent assay metho ds canno t be used inter medrano eably . PSA level s, regar dless of value , shoul d not be inter prete d as absol mendy evide nce of the prese nce or absen ce of disea se. Not Available [facility] [place] [facility] [address] [place], [address], 09/27/2023 09:50:46 09/26/19 24 09/27/2023 TSH W/REF GAYLA TO FT4 TSH w/reflex to FT4 4.02 mIU/L 0.40-4 .50 normal Not Available [facility] [place] [facility] [address] [place], [address], 09/27/2023 09:50:47 09/26/19 24 09/27/2023 HEMOG LOBIN [...] e in test platf orms from the [facility] to the [facility] johnny c503 may have shift ed HbA1c resul ts myles red to histo rical resul ts. Based on labor atory valid ation testi ng condu cted at [facility] , the [facility] platf orm relat pelon to the [employer] platf orm had an avera ge incre [...] is not recom ward d. Not Available [facility] [address] [facility] [place], [address], 09/27/2023 09:50:47 12/26/1912/27/2023 CBC WITH DIFFE RENTI AL/PL ATELE T WBC 8.2 x10e3 /uL 3.4-10 .8 normal Not Available [facility] ([facility]) [address] [place], [address], 12/27/2023 06:12:30 12/26/1912/27/2023 CBC WITH DIFFE RENTI AL/PL ATELE T RBC 4.48 x10e6 /uL 4.14-5 .80 normal Not Available [facility] ([facility]) [address] [place], [address], 12/27/2023 06:12:30 12/26/1912/27/2023 CBC WITH DIFFE RENTI AL/PL ATELE T hemoglobin 13.8 g/dL 13.0-1 7.7 normal Not Available [facility] ([facility]) [address] [place], [address], 12/27/2023 06:12:30 12/26/1912/27/2023 CBC WITH DIFFE RENTI AL/PL ATELE T hematocrit 41.8 % 37.5-5 1.0 normal Not Available [facility] ([facility]) [address] [place], [address], 12/27/2023 06:12:30 12/26/1912/27/2023 CBC WITH DIFFE RENTI AL/PL ATELE T MCV 93 fL 79-97 normal Not Available [facility] ([facility]) [address] [place], [address], 12/27/2023 06:12:30 12/26/1912/27/2023 CBC WITH DIFFE RENTI AL/PL ATELE T MCH 30.8 pg 26.6-3 3.0 normal Not Available [facility] ([facility]) [address] [place], [address], 12/27/2023 06:12:30 12/26/1912/27/2023 CBC WITH DIFFE RENTI AL/PL ATELE T MCHC 33.0 g/dL 31.5-3 5.7 normal Not Available [facility] ([facility]) [address] [facility], [place], [address], 12/27/2023 06:12:30 12/26/1912/27/2023 CBC WITH DIFFE RENTI AL/PL ATELE T RDW 12.7 % 11.6-1 5.4 Not Available [facility] ([facility]) [address] [facility], [place], [address], 12/27/2023 06:12:30 12/26/1912/27/2023 CBC WITH DIFFE RENTI AL/PL ATELE T platelets 256 x10e3 /uL 150-45 0 normal Not Available [facility] ([facility]) [address] [facility], [place], [address], 12/27/2023 06:12:30 12/26/1912/27/2023 CBC WITH DIFFE RENTI AL/PL ATELE T neutrophils 54 % not estab. normal Not Available [facility] ([facility]) [address] [facility], [place], [address], 12/27/2023 06:12:30 12/26/1912/27/2023 CBC WITH DIFFE RENTI AL/PL ATELE T lymphs 28 % not estab. normal Not Available [facility] ([facility]) [address] [facility], [place], [address], 12/27/2023 06:12:30 12/26/1912/27/2023 CBC WITH DIFFE RENTI AL/PL ATELE T monocytes 8 % not estab. normal Not Available [facility] ([facility]) [address] [place], [address], 12/27/2023 06:12:30 12/26/19 24 12/27/2023 CBC WITH DIFFE RENTI AL/PL ATELE T eos 9 % not estab. normal Not Available [facility] ([facility]) [address] [facility], [place], [address], 12/27/2023 06:12:30 12/26/1912/27/2023 CBC WITH DIFFE RENTI AL/PL ATELE T basos 1 % not estab. normal Not Available [facility] ([facility]) [address] [facility], [place], [address], 12/27/2023 06:12:30 12/26/1912/27/2023 CBC WITH DIFFE RENTI AL/PL ATELE T immature cells PROSTHETIC LAB TECHNICIAN Not Available [facility]) [address] [place], [address], 12/27/2023 06:12:30 12/26/1912/27/2023 CBC WITH DIFFE RENTI AL/PL ATELE T neutrophils (absolute) 4.4 x10e3 /uL 1.4-7. 0 normal Not Available [facility] ([facility]) [address] [place], [address], 12/27/2023 06:12:30 12/26/19 24 12/27/2023 CBC WITH DIFFE RENTI AL/PL ATELE T lymphs (absolute) 2.3 x10e3 /uL 0.7-3. 1 normal Not Available [facility] ([facility]) [address] [place], [address], 12/27/2023 06:12:30 12/26/1912/27/2023 CBC WITH DIFFE RENTI AL/PL ATELE T monocytes(ab solute) 0.7 x10e3 /uL 0.1-0. 9 normal Not Available [facility] ([facility]) [address] [place], [address], 12/27/2023 06:12:30 12/26/19 24 12/27/2023 CBC WITH DIFFE RENTI AL/PL ATELE T eos (absolute) 0.7 x10e3 /uL 0.0-0. 4 above high normal Not Available [facility] ([facility]) [address] [facility], [place], [address], 12/27/2023 06:12:30 12/26/1912/27/2023 CBC WITH DIFFE RENTI AL/PL ATELE T baso (absolute) 0.1 x10e3 /uL 0.0-0. 2 normal Not Available [facility] ([facility]) [address] [facility], [place], [address], 12/27/2023 06:12:30 12/26/19 24 12/27/2023 CBC WITH DIFFE RENTI AL/PL ATELE T immature granulocytes 0 % not estab. Not Available [facility] ([facility]) [address] [facility], [place], [address], 12/27/2023 06:12:30 12/26/1912/27/2023 CBC WITH DIFFE RENTI AL/PL ATELE T immature grans (abs) 0.0 x10e3 /uL 0.0-0. 1 Not Available [facility] ([facility]) [address] [facility], [place], [address], 12/27/2023 06:12:30 12/26/19 24 12/27/2023 CBC WITH DIFFE RENTI AL/PL ATELE T NRBC PROSTHETIC LAB TECHNICIAN Not Available [facility] ([facility]) [address] [facility], [place], [address], 12/27/2023 06:12:30 12/26/19 24 12/27/2023 CBC WITH DIFFE RENTI AL/PL ATELE T hematology comments: PROSTHETIC LAB TECHNICIAN Not Available [facility] ([facility]) [address] [facility], [place], [address], 12/27/2023 06:12:30 12/26/19 24 12/27/2023 COMP. METAB OLIC PANEL (14) glucose 93 mg/dL 70-99 normal Not Available [facility] ([facility]) [address] [facility] [place], [address], 12/27/2023 06:12:31 12/26/19 24 12/27/2023 COMP. METAB OLIC PANEL (14) BUN 27 mg/dL 8-27 normal Not Available [facility] ([facility]) [address] [facility] [place], [address], 12/27/2023 06:12:31 12/26/1912/27/2023 COMP. METAB OLIC PANEL (14) creatinine 0.92 mg/dL 0.76-1 .27 normal Not Available [facility] ([facility]) [address] [place], [address], 12/27/2023 06:12:31 12/26/19 24 12/27/2023 COMP. METAB OLIC PANEL (14) eGFR 94 mL/mi n/1.7 3 >59 normal Not Available [facility] ([facility]) [address] [place], [address], 12/27/2023 06:12:31 12/26/19 24 12/27/2023 COMP. METAB OLIC PANEL (14) BUN/creatini ne ratio 29 10-24 above high normal Not Available [facility] ([facility]) [address] [place], [address], 12/27/2023 06:12:31 12/26/19 24 12/27/2023 COMP. METAB OLIC PANEL (14) sodium 142 mmol/ L 134-14 4 normal Not Available [facility] ([facility]) [address] [place], [address], 12/27/2023 06:12:31 12/26/19 24 12/27/2023 COMP. METAB OLIC PANEL (14) potassium 4.4 mmol/ L 3.5-5. 2 normal Not Available [facility] ([facility]) [address] [facility] [place], [address], 12/27/2023 06:12:31 12/26/19 24 12/27/2023 COMP. METAB OLIC PANEL (14) chloride 105 mmol/ L 96-106 normal Not Available [facility] ([facility]) [address] [facility] [place], [address], 12/27/2023 06:12:31 12/26/19 24 12/27/2023 COMP. METAB OLIC PANEL (14) carbon dioxide, total 24 mmol/ L 20-29 normal Not Available [facility] ([facility]) [address] [facility], [place], [address], 12/27/2023 06:12:31 12/26/19 24 12/27/2023 COMP. METAB OLIC PANEL (14) calcium 9.5 mg/dL 8.6-10 .2 normal Not Available [facility] ([facility]) [address] [facility] [place], [address], 12/27/2023 06:12:31 12/26/19 24 12/27/2023 COMP. METAB OLIC PANEL (14) protein, total 6.1 g/dL 6.0-8. 5 normal Not Available [facility] ([facility]) [address] [facility] [place], [address], 12/27/2023 06:12:31 12/26/19 24 12/27/2023 COMP. METAB OLIC PANEL (14) albumin 4.4 g/dL 3.9-4. 9 normal Not Available [facility] ([facility]) [address] [facility] [place], [address], 12/27/2023 06:12:31 12/26/19 24 12/27/2023 COMP. METAB OLIC PANEL (14) globulin, total 1.7 g/dL 1.5-4. 5 Not Available [facility] ([facility]) [address] [facility] [place], [address], 12/27/2023 06:12:31 12/26/19 24 12/27/2023 COMP. METAB OLIC PANEL (14) bilirubin, total 0.3 mg/dL 0.0-1. 2 normal Not Available [facility] ([facility]) [address] [facility] [place], [address], 12/27/2023 06:12:31 12/26/19 24 12/27/2023 COMP. METAB OLIC PANEL (14) alkaline phosphatase 67 IU/L 44-121 normal Not Available [facility]) [address] [facility] [place], [address], 12/27/2023 06:12:31 12/26/19 24 12/27/2023 COMP. METAB OLIC PANEL (14) AST (SGOT) 23 IU/L 0-40 normal Not Available [facility] ([facility]) [address] [facility] [place], [address], 12/27/2023 06:12:31 12/26/19 24 12/27/2023 COMP. METAB OLIC PANEL (14) ALT (SGPT) 15 IU/L 0-44 normal Not Available [facility] ([facility]) [address] [facility] [place], [address], 12/27/2023 06:12:31 12/26/19 24 12/27/2023 LIPID PANEL cholesterol, total 173 mg/dL 100-19 9 normal Not Available [facility] ([facility]) [address] [facility] [place], [address], 12/27/2023 06:12:31 12/26/19 24 12/27/2023 LIPID PANEL triglyceride s 99 mg/dL 0-149 normal Not Available [facility] ([facility]) [address] [facility] [place], [address], 12/27/2023 06:12:31 12/26/19 24 12/27/2023 LIPID PANEL HDL cholesterol 60 mg/dL >39 normal Not Available [facility]) [address] [facility], [place], [address], 12/27/2023 06:12:31 12/26/19 24 12/27/2023 LIPID PANEL VLDL cholesterol toribio 18 mg/dL 5-40 Not Available [facility] ([facility]) [address] [facility], [place], [address], 12/27/2023 06:12:31 12/26/1912/27/2023 LIPID PANEL LDL chol calc ([facility]) 95 mg/dL 0-99 Not Available [facility]) [address] [facility], [place], [address], 12/27/2023 06:12:31 12/26/1912/27/2023 LIPID PANEL LDL calc comment: PROSTHETIC LAB TECHNICIAN Not Available [facility] ([facility]) [address] [facility], [place], [address], 12/27/2023 06:12:31 12/26/1912/27/2023 HEMOG LOBIN A1C hemoglobin A1C 5.8 % 4.8-5. 6 above high normal Predi abete s: 5.7 - 6.4 Diabe maria esther: >6.4 Glyce catarina contr ol for adult s with diabe maria esther: <7.0 Not Available [facility] ([facility]) [address] [facility], [place], [address], 12/27/2023 06:12:32 05/15/1905/14/2024 rapid SARS CoV 2 Ag, QL, IA, upper respi rator y speci men SARS CoV Ag negati ve Not Available [address], [place], [address], 05/14/2024 11:01:41 05/15/19 25 05/14/2024 rapid flu (A+B) Flu A positi ve Not Available [address], [address], 05/14/2024 11:01:25 05/15/19 25 05/14/2024 rapid flu (A+B) Flu B negati ve Not Available [address], [address], 05/14/2024 11:01:25 01/08/20 23 XR, lumba r spine No observ ation record ed. [email or web address] Not Available 02/28 15:07:19 01/19/20 24 01/09/2024 LDCT, chest , for lung cance r scree michael No observ ation record ed. [email or web address] [place] [id number], [place], [address], 02/10/2024 14:56:24 Result Notes None recorded. Problems Name Problem SNOMED Code Status Onset Date Resolution Date Notes Provider Name and Address Organization Details Recorded Time Hyperlipidemia 76127967 Active 2023 hWitney torres [place] - [employer] 13:14:37 Problem Notes None recorded. Medical [...] mg tablets in a dose pack TAKE ACCORDIN G TO PACKAGE INSTRUCT IONS --TAKE WITH [...] in Arterial blood by Pulse oximetry Systolic And Diastolic Provider Name and Address Organization Details Last Updated DateTime 4 172.72 cm 22.4 kg/m2 95186.0 8 g 70 /min 97 % 97 % 130/86 mm[Hg] Whitney [employer] 4 10:18:00 Date Recorded Body height Body mass index (BMI) Body weight Heart rate Oxygen saturation Oxygen saturation in Arterial blood by Pulse oximetry Systolic And Diastolic Provider Name and Address Organization Details Last Updated DateTime 5 172.72 cm 21.3 kg/m2 93202.6 3 g 75 /min 94 % 94 % 131/82 mm[Hg] Irma Rojas [email or web address] 5 11:00:13 Date Recorded Body height Body mass index (BMI) Body weight Heart rate Oxygen saturation Oxygen saturation in Arterial blood by Pulse oximetry Systolic And Diastolic Provider Name and Address Organization Details Last Updated DateTime 4 172.72 cm 21.1 kg/m2 81173.5 5 g 74 /min 95 % 95 % 135/87 mm[Hg] Whitney [employer] 4 10:24:41 Date Recorded Body height Body mass index (BMI) Body weight Heart rate Oxygen saturation Oxygen saturation in Arterial blood by Pulse oximetry Systolic And Diastolic Provider Name and Address Organization Details Last Updated DateTime 4 172.72 cm 21.8 kg/m2 46744.4 1 g 67 /min 95 % 95 % 131/79 mm[Hg] Whitney [employer] 4 13:13:42 Date Recorded Body height Body mass index (BMI) Body weight Heart rate Oxygen saturation Oxygen saturation in Arterial blood by Pulse oximetry Systolic And Diastolic Systolic And Diastolic Provider Name and Address Organization Details Last Updated DateTime 3 172.72 cm 22.4 kg/m2 06734.0 8 g 87 /min 98 % 98 % 170/85 mm[Hg] 173/89 mm[Hg] Tete Richardson [email or web address] 3 11:13:31 Social History Question Answer Notes LastModified by Organizat ion Details LastModified Time Tobacco Smoking Status Current Every Day Smoker [facility]ete torres, [facility] 01/07/2023 11:04:28 Do You Have An [...] Do You Have A Medical Power Of Dog Sitter? No Information not available 01/07/2023 What Was [...] not available 01/07/2023 Are you able to walk independently without assistance or assistive devices? YESWOREST Information not available 01/07/2023 Do you have difficulty doing errands alone? No Information not available 01/07/2023 Are you able to care for yourself independently? Yes Information not available 01/07/2023 Do you have difficulty dressing, bathing, grooming, or toileting? No Information not available 01/07/2023 What is [...] cancelled patient objection Riana Ruiz APRN [address] [place], [address], [employer] 12/26/2023 13:46:58 Influenza, split virus, trivalent, PF 12/26/19 24 cancelled patient objection Riana Ruiz APRN [address] [place], [address], [employer] 12/26/2023 13:46:58 COVID-19, mRNA, LNP-S, PF, madison-sucrose, 30 mcg/0.3 mL 12/26/19 24 cancelled patient objection Riana Ruiz APRN [address] [place], [address], [employer] 12/26/2023 13:46:58 Past Encounters Encounter ID Performer Location Encounter Start Date Encounter Closed Date Diagnosis/Indication Diagnosis SNOMED-CT Code Diagnosis ICD10 Code Diagnosis IMO Codes Diagnosis Note [id number] Riana Ruiz [place] [phone] 01/07/2023 10:26:02 01/07/2023 12:09:37 Fatigue 21413256 R53.83 Hyperlipidemia 47343636 E78.5 Vitamin D deficiency 347 75485 E55.9 Vitamin B deficiency 479 67181 E53.9 Nocturia 272412384 R35.1 Screening for malignant neoplasm of colon 711765781 Z12.11 Low back pain 370965393 M54.50 Elevated blood-pressure reading without diagnosis of hypertension 022289449 R03.0 Arthritis 3409048 M19.90 Spasm of back muscles 20 4241363 M62.830 Body mass index 20-24 - normal 669909319 Z68.22 [id number] Riana Ruiz [place] [phone] 04/15/2023 09:27:33 04/15/2023 10:52:58 Fatigue 08126412 R53.83 Arthritis 5031684 M19.90 Spasm of back muscles 20 8496101 M62.830 Hyperlipidemia 74455419 E78.5 Body mass index 20-24 - normal 097669684 Z68.22 [id number] Riana Ruiz [address] [id number] 09/26/2023 10:08:18 09/26/2023 10:54:48 Arthritis 0116833 M19.90 Spasm of back muscles 20 9545710 M62.830 Fatigue 76870615 R53.83 Hyperlipidemia 00381452 E78.5 Nocturia 494696575 R35.1 Hyperglycemia 52450390 R 73.9 Body mass index 20-24 - normal 735092089 Z68.22 [id number] Riana Ruiz [address] [id number] 12/26/2023 12:37:56 12/26/2023 13:27:21 Vaccine declined by patient 6565105317 02 Z28.20 Hyperlipidemia 65962486 E78.5 Screening for malignant neoplasm of colon 774244412 Z12.11 Fatigue 08153730 R53.83 Hyperglycemia 00500501 R 73.9 Nicotine dependence 5629 4008 F17.200 Arthritis 1904122 M19.90 Spasm of back muscles 20 2330476 M62.830 Mixed hyperlipidemia 267 958572 E78.2 Body mass index 20-24 - normal 784514493 Z68.22 [id number] [address] [phone] 05/14/2024 10:28:48 05/14/2024 11:51:22 Influenza caused by Influenza A virus 594621596 J09.X2 Wheezing 03357864 R06.2 Cough 85416400 R05.9 Body mass index 20-24 - normal 037355538 Z68.22 Health Concerns Section Related Observation LastModified by Organization Detai ls LastModified Time None Recorded Concern Status LastModified by Organization Details LastModified Time None Recorded Advance Directives Directive N: Payers Encounter Date Sequence Insurance Name Policy Number Policy Crowe Covered Member ID Crowe Member ID Guarantor Name 01/07/2023 1 [employer] [facility] (MEDICAID HMO) [place] [id number] [employer] [place] 04/15/2023 1 [employer] [facility] (MEDICAID HMO) [place] [id number] [employer] [place] 09/26/2023 1 [employer] [facility] (MEDICAID HMO) [place] [id number] [employer] [place] 12/26/2023 1 [employer] [facility] (MEDICAID HMO) [place] [id number] [employer] 05/14/2024 1 [employer] [facility] (MEDICAID HMO) [place] [id number] [employer] Notes Date Note Type Note Provider Name and Address Organization Details Recorded Time 01/07/2023 text/html pt here today to est PCP. pt states that his previous PCP left without telling anyone. pt is very [place]. pt states that he is prescribed suboxone from [facility] and i told him that we have a MAT program here and told him a little about the program. pt states i will not go back to weekly visits . tried to explain to pt that all pt do that and then move up and he again states he wont do weekly visits again, although he does not like going to [facility] and doing group thereapy. after his girlfriend [...] he had to take a job at [employer] because his girl friend had a baby [...] xray at 1300. Riana Ruiz APRN [address] [place], [address], [employer] 01/07/2023 12:56:31 04/15/2023 text/html pt here today for medicaton refills. pt states hes doing well on current medication regime and has no new complaints today. Riana Ruiz APRN [address] [place], [address], [employer] 04/15/2023 11:23:05 09/26/2023 text/html pt here today for medication refills. pt states hes doing well on current medication regime and has no new complaints today. pt has lost 9 lbs since last visit. 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 Riana Ruiz APRN [address] [place], [address], [employer]. 09/26/2023 11:02:36 12/26/2023 text/html pt here today for medication refills. pt states hes doing well [...] talking with him. Riana Ruiz APRN [address] [facility], [place], [address], [employer] 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 and that [...] thought pt needed. Riana Ruiz APRN [address] [facility], [place], [address], [facility] [employer] 05/14/2024 12:53:13
--- OUTSIDE RECORDS SUMMARY | 2025-01-19 12:36 | XMS_ITS | Encounter Summary ---
Author Organization Healthcare Address [address] [place] [address] Care Team Providers Care Cad Engineer Name Role Phone Nate Ansari MD Primary Care Provider + [phone] Encounter Details Date Type Department Care Team (Latest Contact Info) Description 01/12/2025 Travel Social History Tobacco Use Types Packs/Day Years Used Date Smoking Tobacco: Some Days Cigarettes Smokeless Tobacco: Never Alcohol Use Standard [...] on file documented as of this encounter Functional Status * Over the past 2 weeks, how often have you been bothered by any of the following problems? Question Answer Date of Assessment Author Little interest or pleasure in doing things Not at all 01/12/2025 11:09 AM Cari Mixon Feeling down, depressed, or hopeless More than half the days 01/12/2025 11:09 AM Cari Mixon Patient Health Questionnaire-2 Score 2 01/12/2025 11:09 AM Cari Mixon documented as of this encounter Plan of [...] documented as of this encounter Care Teams Cad Engineer Relationship Specialty Start Date End Date Nate Ansari MD [address] [facility] [place] [address] PCP - General 07/21/20 documented as of this encounter
--- OUTSIDE RECORDS SUMMARY | 2025-01-19 12:36 | XMS_ITS | Encounter Summary ---
Author Organization Healthcare Address [address] [place] [address] Care Team Providers Care Primary Care Nurse Name Role Phone Nate Ansari MD Primary Care Provider [phone] Encounter Details Date Type Department Care Team [...] documented as of this encounter Care Teams Primary Care Nurse Relationship Specialty Start Date End Date Nate Ansari MD [address] [place] [id number] PCP - General 07/21/20 documented as of this encounter
--- OUTSIDE RECORDS SUMMARY | 2025-01-19 12:36 | XMS_ITS | Encounter Summary ---
Author Organization Healthcare Address [address] [place] [address] Care Team Providers Care Oxide Furnace Tender Name Role Phone Nate Ansari MD Primary Care Provider + [phone] Encounter Details Date Type Department Care Team ([facility] st Contact Info) Description 08/19/2024 Orders Only External Location [address] [place] [address] Provider, External Social History Tobacco Use Types [...] on filedocumented in this encounter Care Teams Oxide Furnace Tender Relationship Specialty Start Date End Date Nate Ansari MD [address] [place] [address] PCP - General 07/21/20 documented as of this encounter
--- NOTE | 2025-01-19 13:00 | CT_ITS ---
FINAL REPORT CLINICAL HISTORY: lung cancer screening current smoker 1ppd x48 years COMPARISON: 01/09/2024 FINDINGS: CT CHEST LOW DOSE SCREENING HISTORY: Screening exam for lung cancer. DOSE: CTDI vol: 2.90 mGy, DLP: 107.07 mGy*cm TECHNIQUE: Axial CT without IV contrast administration using low dose protocol. This study was performed with techniques to keep radiation doses as low as reasonably achievable, (ALARA). Individualized dose reduction techniques using automated exposure control or adjustment of mA and/or kV according to the patient's size were employed. No acute lung disease is present. No pulmonary lesions are seen suspicious for neoplasm. There is emphysema and evidence of old calcified granulomatous disease. 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 No pleural or pericardial effusion is seen. No adenopathy or mass lesion is present. IMPRESSION: No evidence of lung cancer LUNG RADS CATEGORY 1 RECOMMENDATION: 12 month LDCT follow up Reviewed, Interpreted and Dictated by Yuan Almonte MD Transcribed by Farnaz Spencer Authenticated and [facility]
== END 2025-01-19 23:59 | disposition home or self-care (01) ==
LOC: RAD 12:33
PROVIDERS: PCP Internal Medicine; Visit Provider Internal Medicine Pulmonary Disease
DX: Z12.2 Encounter for screening for malignant neoplasm of respiratory organs (principal); F17.210 Nicotine dependence, cigarettes, uncomplicated; J43.9 Emphysema, unspecified; I25.10 Atherosclerotic heart disease of native coronary artery without angina pectoris
CPT/HCPCS: 71271